=== PATIENT | male | born 1965 | race Caucasian/White ===

== ENCOUNTER 2016-09-22 06:17 | Day surgery (SDC) | payer BC ==
[2016-09-21 08:49] VITALS: BMI 24.6
[~2016-09-22 06:17] MED LIST: DEXAMETHASONE SOD PHOSPHATE 10 MG/ML 1 ML VIAL IV ONE; HEPARIN SODIUM,PORCINE 5,000 UNIT/ML 1 ML VIAL SQ ONE; HYDROmorphone 1 MG/ML 1 ML SYRINGE IVP PRN; LACTATED RINGERS 1,000 ML IV SCH; LIDOCAINE 1% 20 ML VIAL (10MG/ML) FOR IV START INTRADERMA PRN; Pre Op ABX Message 1 EACH MISC MISCELLANE ONE
[2016-09-22 06:50] VITALS: RESP 16
[2016-09-22] MEDS ORDERED: ONDANSETRON 4 MG/2 ML VIAL IVP ONE (06:53)
[2016-09-22] MEDS ORDERED: BUPIVACAINE (PF) 0.25% 30 ML VIAL SQ ONE (07:21)
[2016-09-22] MEDS ORDERED: BUPIVACAIN-EPI 0.5%-1:200,000 30 ML VIAL SQ ONE (07:21)
[2016-09-22] MEDS ORDERED: LIDOCAINE 1% INJ 10MG/ML (20 ML MDV) ONE (07:32)
[2016-09-22] MEDS ORDERED: fentaNYL (PF) 50 MCG/ML 2 ML AMP ONE (07:32)
[2016-09-22] MEDS ORDERED: SODIUM CHLORIDE 0.9% 50 ML with ceFAZolin 1,000 MG IV ONE ×2 (07:32)
[2016-09-22] MEDS ORDERED: MIDAZOLAM 2 MG/2 ML VIAL ONE (07:32)
[2016-09-22] MEDS ORDERED: PROPOFOL 10 MG/ML 20 ML VIAL IV ONE (07:32)
--- NOTE | 2016-09-22 08:05 | P.OP ---
Date of Procedure: 09/22/16 Preoperative Diagnosis: Right groin sebaceous cyst Postoperative Diagnosis: Right groin sebaceous cyst Procedure(s) Performed: Excision of sebaceous cyst Implants: Anesthesia: ADRIANAA, local Surgeon: Lucia Mar Pathology: other Condition: stable Indications for Procedure: Operative Findings: Description of Procedure: He had a sudden preoperative operating holding area after obtaining informed consent and marking the area between the operating room and given IV sedation appropriate timeout was called. He is prepped and draped in usual sterile surgical fashion, after infiltrating with local anesthesia elliptical incision was made around the cyst itself with the help of a 15 blade scalpel. This was deepened to skin and subcutis tissue with the help of electrocautery thus completely enucleating the cyst. This subsides itself was approximately 1.8 cm x 1.8 cm x 2 cm. The incision was deepened to the subcutaneous tissue without exposure of any deeper tissues. The wound itself was closed with its subcu cutaneous 2-0 Vicryl and skin was closed with 3-0 nylon. The patient tolerated procedure well there were no complications she was taken to recovery room in stable condition. Plan - Discharge Summary New Discharge Prescriptions: New Clindamycin [Cleocin] 150 mg PO Q6H #12 capsule Ibuprofen 800 mg PO Q8HR PRN #15 tablet PRN Reason: Pain No Action Albuterol Sulfate [Proair Hfa] 2 puff INHALATION RT-Q4H PRN PRN Reason: Shortness Of Breath Cholecalciferol [Vitamin D3] 1,000 unit PO DAILY Budesonide-Formot 160-4.5 Mcg [Symbicort 160-4.5 Mcg Inhaler] 2 puff INHALATION HS Sulfamethox-Tmp 800-160Mg [Bactrim DS 800-160 mg] 1 tab PO BID-W/MEALS Discharge Medication List Albuterol Sulfate [Proair Hfa] 2 puff INHALATION RT-Q4H PRN 07/28/15 [History] Budesonide-Formot 160-4.5 Mcg [Symbicort 160-4.5 Mcg Inhaler] 2 puff INHALATION HS 09/21/16 [History] Cholecalciferol [Vitamin D3] 1,000 unit PO DAILY 09/21/16 [History] Clindamycin [Cleocin] 150 mg PO Q6H #12 capsule 09/22/16 [Rx] Ibuprofen 800 mg PO Q8HR PRN #15 tablet 09/22/16 [Rx] Sulfamethox-Tmp 800-160Mg [Bactrim DS 800-160 mg] 1 tab PO BID-W/MEALS 09/22/16 [History] Follow up Appointment(s)/Referral(s): Lucia Mar MD [STAFF PHYSICIAN] - 1 Week Activity/Diet/Wound Care/Special Instructions: regular diet Discharge Disposition: HOME SELF-CARE
[2016-09-22 08:06] VITALS: TEMP 97.7
[2016-09-22] MEDS ORDERED: KETOROLAC 30 MG/ML 1 ML VIAL IVP ONE (08:11)
[2016-09-22] MEDS ORDERED: LACTATED RINGERS 1,000 ML IV ONE (08:34)
[2016-09-22 09:45] VITALS: BP 114/65; PULSE 76
== END 2016-09-22 10:10 | disposition home or self-care (01) ==
LOC: OR 06:17
PROVIDERS: ATTEND Surgery
DX: L72.3 Sebaceous cyst (principal); J45.909 Unspecified asthma, uncomplicated; Z79.51 Long term (current) use of inhaled steroids; Z88.0 Allergy status to penicillin
CPT/HCPCS: 88304; 11402; J2250; J1100; J2405; J2001; J3010; J1885; J0690; J2704

== ENCOUNTER 2018-05-06 21:02 | Inpatient (IN) | payer BC ==
[2018-05-06] MEDS ORDERED: SODIUM CHLORIDE 0.9% 1,000 ML IV ONE (21:58)
--- NOTE | 2018-05-06 22:10 | ED ---
Abdominal Pain HPI - General Chief Complaint: Abdominal Pain Stated Complaint: diverticulitis Time Seen by Provider: 05/06/18 21:47 Source: patient Mode of arrival: ambulatory Limitations: no limitations - History of Present Illness Initial Comments: 52-year-old male with past medical history of diverticulosis present today for chief complaint of left lower abdominal pain. Patient states he was diagnosed on Sunday with diverticulitis by primary care provider after abdominal exam revealing left lower quadrant tenderness. Patient started on metronidazole as well as clindamycin. Patient states that the pain seemed to decide for a short amount of time however it has returned and seems to be worsened. Patient is concerned infection and spread. Patient denies any fever, chills, general malaise, nausea, vomiting, diarrhea, melena, hematochezia, testicular pain, urgency, frequency, dysuria headache, dizziness, chest pain, dyspnea, dyspnea on exertion, visual changes or any other complaints. Upon arrival patient appears well, nontoxic. Patient afebrile. No signs of acute distress. - Related Data Home Medications Medication Instructions Recorded Confirmed Albuterol Sulfate [Proair Hfa] 2 puff INHALATION RT-Q4H PRN 07/28/15 05/06/18 Ciprofloxacin HCl [Cipro] 500 mg PO BID 05/06/18 05/06/18 metroNIDAZOLE [Flagyl] 500 mg PO BID 05/06/18 05/06/18 Allergies Allergy/AdvReac Type Severity Reaction Status Date / Time peanut Allergy throat Verified 05/06/18 22:23 closes tree nut Allergy throat Verified 05/06/18 22:23 closes Penicillins AdvReac Nausea & Verified 05/06/18 22:23 Vomiting & Diarrhea Review of Systems ROS Statement: Those systems with pertinent positive or pertinent negative responses have been documented in the HPI. ROS Other: All systems not noted in ROS Statement are negative. Past Medical History Past Medical History: Asthma Additional Past Medical History / Comment(s): diverticulitis History of Any Multi-Drug Resistant Organisms: None Reported Past Surgical History: No Surgical Hx Reported Additional Past Surgical History / Comment(s): colonoscopy, hemorrhoidectomy Past Anesthesia/Blood Transfusion Reactions: No Reported Reaction Past Psychological History: No Psychological Hx Reported Smoking Status: Never smoker Past Alcohol Use History: Rare Past Drug Use History: None Reported - Past Family History Mother Family Medical History: Cancer Father Family Medical History: Cancer General Exam - General Exam Comments Initial Comments: General: The patient is awake and alert, in no distress, and does not appear a cutely ill. Eye: Pupils are equal, round and reactive to light, extra-ocular movements are intact. No nystagmus. There is normal conjunctiva bilaterally. No signs of icterus. Ears, nose, mouth and throat: There are moist mucous membranes and no oral lesions. Neck: The neck is supple, there is no tenderness or JVD. Cardiovascular: There is a regular rate and rhythm. No murmur, rub or gallop is appreciated. Respiratory: Lungs are clear to auscultation, respirations are non-labored, breath sounds are equal. No wheezes, stridor, rales, or rhonchi. Gastrointestinal: No noted diaphoresis, jaundice, pallor, protecting postures or squirming. Symmetrical pigmentation of abdomen without signs of inflammation. No dilated veins.., no noted abdominal distention. No visible masses. No peristalsis, aortic pulsations, or ventral hernia. Bowel sounds audible in all 4 quadrants, unremarkable. No friction rubs or venous hums. No epigastic, hepatic or abdominal bruits. Patient tender a patient of the left lower quadrant. [place] ining abdominal exam no tenderness to deep palpation. Liver edge, not palpable. Spleen edge, right and left kidney not palpable. Superior bladder margin non- tender. Special Testing: Negative [place], [place], Elvia, cutaneous hyperesthesia. Negative Heel Jar test/. No CVA tenderness. Digital rectal exam deferred. Negative martinez turners or cullens sign Musculoskeletal: Normal ROM, no tenderness. Strength 5/5. Sensation intact. Pulses equal bilaterally 2+. Neurological: A&O x 3. CN II-XII intact, There are no obvious motor or sensory deficits. Coordination appears grossly intact. Speech is normal. Skin: Skin is warm and dry and no rashes or lesions are noted. Psychiatric: Cooperative, appropriate mood & affect, normal judgment. Limitations: no limitations Course Vital Signs 05/06/18 05/06/18 05/07/18 21:28 22:45 01:01 Temperature 98.5 F Pulse Rate 89 87 83 Respiratory 18 16 16 Rate Blood Pressure 113/73 122/85 110/83 O2 Sat by Pulse 98 98 96 Oximetry Medical Decision Making - Medical Decision Making 52-year-old male past medical history of diverticulosis with recent diverticulitis diagnosis and antibiotic treatment up patient. Patient complaining of worsening symptoms. CT revealed acute diverticulitis. Given patient increasing symptoms on antibiotic regimen outpatient feel this is outpatient failure. Patient will be admitted for intravenous antibiotics, bowel rest and GI consultation. Patient does not appear toxic, no clinical signs of sepsis. Mild leukocytosis. Vital signs within normal limits. Patient is agreeable to admission. Denies questions at this time. Case was discussed with attending provider Dr. Madrigal who is agreeable with patient admission. Dr. Madrigal contacted admitting provider, no further orders at this time. - Lab Data Result diagrams: 05/06/18 22:45 05/06/18 22:45 Lab Results 05/06/18 05/06/18 Range/Units 22:45 22:45 WBC 13.4 H (3.8-10.6) k/uL RBC 5.28 (4.30-5.90) m/uL Hgb 15.6 (13.0-17.5) gm/dL Hct 45.8 (39.0-53.0) % MCV 86.7 (80.0-100.0) fL MCH 29.5 (25.0-35.0) pg MCHC 34.1 (31.0-37.0) g/dL RDW 12.3 (11.5-15.5) % Plt Count 236 (150-450) k/uL Neutrophils % 77 % Lymphocytes % 10 % Monocytes % 6 % Eosinophils % 6 % Basophils % 0 % Neutrophils # 10.3 H (1.3-7.7) k/uL Lymphocytes # 1.3 (1.0-4.8) k/uL Monocytes # 0.8 (0-1.0) k/uL Eosinophils # 0.7 (0-0.7) k/uL Basophils # 0.0 (0-0.2) k/uL Sodium 139 (137-145) mmol/L Potassium 4.1 (3.5-5.1) mmol/L Chloride 107 (98-107) mmol/L Carbon Dioxide 23 (22-30) mmol/L Anion Gap 9 mmol/L BUN 17 (9-20) mg/dL Creatinine 0.68 (0.66-1.25) mg/dL Est GFR (CKD-EPI)AfAm >90 (>60 ml/min/1.73 sqM) Est GFR (CKD-EPI)NonAf >90 (>60 ml/min/1.73 sqM) Glucose 101 H (74-99) mg/dL Calcium 9.2 (8.4-10.2) mg/dL Total Bilirubin 0.6 (0.2-1.3) mg/dL AST 33 (17-59) U/L ALT 46 (21-72) U/L Alkaline Phosphatase 58 (38-126) U/L Total Protein 6.6 (6.3-8.2) g/dL Albumin 4.2 (3.5-5.0) g/dL Lipase 68 (23-300) U/L Disposition Clinical Impression: Diverticulitis Disposition: ADMITTED IP TO THIS [facility] Condition: Good Is patient prescribed a controlled substance at d/c from ED?: No Time of Disposition: 00:26 Decision to Admit Reason: Admit from EC Decision Date: 05/07/18 Decision Time: 00:26
[2018-05-06] MEDS ORDERED: MORPHINE SULFATE 2 MG/ML SYRINGE IVP STA (22:11)
[2018-05-06 23:03] LABS: Basophils % (A) 0 %; Eosinophils # (A) 0.7 k/uL (0-0.7); Eosinophils % (A) 6 %; HCT 45.8 % (39.0-53.0); HGB 15.6 gm/dL (13.0-17.5); Lymphocytes # (A) 1.3 k/uL (1.0-4.8); Lymphocytes % (A) 10 %; MCH 29.5 pg (25.0-35.0); MCHC 34.1 g/dL (31.0-37.0); MCV 86.7 fL (80.0-100.0); Mean Platelet Volume 7.4; Monocytes # (A) 0.8 k/uL (0-1.0); Monocytes % (A) 6 %; Neutrophils # (A) 10.3 k/uL (1.3-7.7); Neutrophils % (A) 77 %; Platelet Count 236 k/uL (150-450); RBC 5.28 m/uL (4.30-5.90); RDW 12.3 % (11.5-15.5); WBC 13.4 k/uL (3.8-10.6)
[2018-05-06 23:12] LABS: ALT 46 U/L (21-72); AST 33 U/L (17-59); Albumin 4.2 g/dL (3.5-5.0); Alkaline Phosphatase 58 U/L (38-126); Anion Gap 9 mmol/L; Blood Urea Nitrogen 17 mg/dL (9-20); Calcium 9.2 mg/dL (8.4-10.2); Carbon Dioxide 23 mmol/L (22-30); Chloride 107 mmol/L (98-107); Glucose 101 mg/dL (74-99); Lipase 68 U/L (23-300); Potassium 4.1 mmol/L (3.5-5.1); Sodium 139 mmol/L (137-145); Total Bilirubin 0.6 mg/dL (0.2-1.3); Total Protein 6.6 g/dL (6.3-8.2)
--- NOTE | 2018-05-07 | CT ---
EXAM: CT Abdomen and Pelvis With Intravenous Contrast CLINICAL HISTORY: ITS.REASON CT Reason: Pain TECHNIQUE: Axial computed tomography images of the abdomen and pelvis with intravenous contrast. DLP is 695 mGy-cm. This CT exam was performed using one or more of the following dose reduction techniques: automated exposure control, adjustment of the mA and/or kV according to patient size, and/or use of iterative reconstruction technique. COMPARISON: No relevant prior studies available. FINDINGS: Lung bases: Unremarkable. No mass. No consolidation. ABDOMEN: Liver: Unremarkable. No mass. Gallbladder and bile ducts: No abnormal ductal dilation or stones. Pancreas: Unremarkable. No mass. No ductal dilation. Spleen: Unremarkable. No splenomegaly. Adrenals: Unremarkable. No mass. Kidneys and ureters: Unremarkable. No solid mass. No hydronephrosis. Stomach and bowel: Acute diverticulitis at the descending colon. Fluid levels throughout the colon without obstruction. PELVIS: Appendix: No findings to suggest acute appendicitis. Bladder: Unremarkable. No mass. Reproductive: Unremarkable as visualized. ABDOMEN and PELVIS: Intraperitoneal space: Unremarkable. No free air. No significant fluid collection. Bones/joints: No acute fracture. No dislocation. Soft tissues: Unremarkable. Vasculature: No abdominal aortic aneurysm. Lymph nodes: Unremarkable. No enlarged lymph nodes. IMPRESSION: 1. Acute diverticulitis at the descending colon. 2. Fluid levels throughout the colon without obstruction.
[2018-05-07] MEDS ORDERED: ONDANSETRON 4 MG/2 ML VIAL IVP PRN (00:19)
[2018-05-07] MEDS ORDERED: NALOXONE 0.4 MG/ML 1 ML VIAL IV PRN (00:19)
[2018-05-07] MEDS ORDERED: LEVOFLOXACIN 750MG-D5W PMX 750 MG in DEXTROSE/WATER 1 150ML.BAG IVPB STA (00:23)
[2018-05-07] MEDS ORDERED: metroNIDAZOLE-NS PMX 500 MG in SALINE 1 100ML.BAG IVPB STA (00:25)
[2018-05-07] MEDS: SODIUM CHLORIDE 0.9% 1,000 ML IV SCH ×2 (00:34→14:03)
[2018-05-07] MEDS: MORPHINE SULFATE 4 MG/ML SYRINGE IV PRN ×5 (01:02→20:55)
[2018-05-07 02:13] VITALS: BMI 24.7
--- NOTE | 2018-05-07 09:27 | P.CONS ---
History of Present Illness - Reason for Consult Consult date: 05/07/18 Diverticulitis Requesting physician: Hung Reddy - Chief Complaint Abdominal pain - History of Present Illness 52-year-old male patient of Dr. Boone admitted with left lower quadrant abdominal pain recently diagnosed outpatient diverticulitis by PCP last week placed on Cipro Flagyl. He's had a few outpatient diverticular attacks over the years starting 2 years ago normally results with outpatient in bad ax. No history of colonoscopy he was scheduled twice but canceled. He has a history of familial colon cancer mother was diagnosed in her 60s stage IV. Denies fever chills hematemesis hematochezia or melena. Was reporting constipation prior to admission and had a few loose her bowel movements are last 24 hours. White count 13.4. Hemoglobin 15.6. CT abdomen pelvis reported acute diver to colitis of the descending colon without obstruction. No weight loss. No changes in medications. No recent antibiotics. Review of Systems Constitutional: Denies fever, chills, sweats, weight gain, or loss. HEENT: Negative for migraines, blurred vision or loss, earaches, drainage, tinnitus, oral mucosal lesions, dysphagia, or odynophagia. Cardiac: Negative for chest pain, arrhythmias, or palpitation. Respiratory: Negative for shortness of breath, hemoptysis, cough, or sputum production. Gastrointestinal: See HPI for pertinent findings. Genitourinary: Negative for hematuria, urgency, frequency, polyuria, dysuria, or penile discharge. Musculoskeletal: Negative for muscle aches, swelling, arthritis, and arthralgias. Neurologic: Negative for stroke or TIA. Endocrine: Negative for thyroid problems. Skin: Negative for rash or itching. Psychiatric: Negative history for depression and anxiety Past Medical History Past Medical History: Asthma Additional Past Medical History / Comment(s): diverticulitis History of Any Multi-Drug Resistant Organisms: None Reported Past Surgical History: No Surgical Hx Reported Additional Past Surgical History / Comment(s): colonoscopy, hemorrhoidectomy Past Anesthesia/Blood Transfusion Reactions: No Reported Reaction Past Psychological History: No Psychological Hx Reported Smoking Status: Never smoker Past Alcohol Use History: Rare Past Drug Use History: None Reported - Past Family History Mother Family Medical History: Cancer Father Family Medical History: Cancer Medications and Allergies Home Medications Medication Instructions Recorded Confirmed Type Albuterol Sulfate [Proair Hfa] 2 puff INHALATION RT-Q4H PRN 07/28/15 05/06/18 History Ciprofloxacin HCl [Cipro] 500 mg PO BID 05/06/18 05/06/18 History metroNIDAZOLE [Flagyl] 500 mg PO BID 05/06/18 05/06/18 History Allergies Allergy/AdvReac Type Severity Reaction Status Date / Time peanut Allergy throat Verified 05/06/18 22:23 closes tree nut Allergy throat Verified 05/06/18 22:23 closes Penicillins AdvReac Nausea & Verified 05/06/18 22:23 Vomiting & Diarrhea Physical Exam Vitals: Vital Signs Temp Pulse Pulse Resp BP BP Pulse Ox 05/07/18 07:00 98.9 F 98 12 121/71 98 05/07/18 01:01 83 16 110/83 96 05/06/18 22:45 87 16 122/85 98 05/06/18 21:28 98.5 F 89 18 113/73 98 Intake and Output 05/06/18 05/07/18 05/07/18 22:59 06:59 14:59 Intake Total 600 Balance 600 Intake: Intake, IV Titration 600 Amount Sodium Chloride 0.9% 1, 600 000 ml @ 75 mls/hr IV . [id number] [facility] Rx#:[id number] Other: Voiding Method Toilet # Voids 2 Weight 73.845 kg General appearance: The patient is alert, oriented, in no acute distress. HET: Head is normocephalic and atraumatic. Pupils are equal and reactive. Oropharynx is clear without lesions. Neck: Supple without lymphadenopathy. Trachea midline. Heart: S1 S2. Regular rate and rhythm. Lungs: No crackles or wheezes are heard. Abdomen: Soft, mild left lower quadrant tenderness, nondistended with bowel sounds. No peritoneal signs. No palpable organomegaly or masses. Extremities: Normal skin color and turgor. No cyanosis, rash, ulceration, clubbing, or edema. Radial and pedal pulses are 2/4 bilaterally. Neurological: No focal deficits. Strength and sensation are grossly intact. Results CBC & Chem 7: 05/06/18 22:45 05/06/18 22:45 Labs: Abnormal Lab Results - Last 24 Hours (Table) 05/06/18 05/06/18 Range/Units 22:45 22:45 WBC 13.4 H (3.8-10.6) k/uL Neutrophils # 10.3 H (1.3-7.7) k/uL Glucose 101 H (74-99) mg/dL CT scan - abdomen: report reviewed (Dr. Wilkes) Assessment and Plan (1) Diverticulitis Narrative/Plan: 52-year-old male recently treated in the outpatient setting for acute colonic diverticulitis admitted with left lower quadrant abdominal pain CT reported acute descending colonic diverticulitis without abscess or free air. Current Visit: Yes Status: Acute Code(s): K57.92 - DVTRCLI OF INTEST, PART UNSP, W/O PERF OR ABSCESS W/O BLEED SNOMED Code(s): 734989857 Plan: 1. Avoid constipation stool softeners daily Senokot-S 2 tabs twice a day. Continue with IV antibiotics Levaquin 500 mg daily. Flagyl Flagyl 500 mg 3 times a day. 2. Light liquid diet as tolerated. Outpatient colonoscopy advised in 3-4 weeks. Thank you for this kind referral and the opportunity to participate in the care of your patient. This consultation was discussed with Dr. Wilkes. The impression and plan of care have been directed as dictated.
[2018-05-07] MEDS: SENNOSIDES-DOCUSATE SODIUM 1 EACH TAB PO SCH ×2 (10:58→20:56)
[2018-05-07] MEDS: metroNIDAZOLE-NS PMX 500 MG in SALINE 1 100ML.BAG IVPB SCH ×2 (10:58→15:28)
[2018-05-07 12:04] LABS: Basophils % (A) 0 %; Eosinophils # (A) 0.5 k/uL (0-0.7); Eosinophils % (A) 5 %; HGB 14.1 gm/dL (13.0-17.5); Lymphocytes # (A) 1.1 k/uL (1.0-4.8); Lymphocytes % (A) 12 %; MCH 29.2 pg (25.0-35.0); MCHC 32.8 g/dL (31.0-37.0); MCV 89.1 fL (80.0-100.0); Mean Platelet Volume 6.8; Monocytes # (A) 0.6 k/uL (0-1.0); Monocytes % (A) 7 %; Neutrophils # (A) 6.6 k/uL (1.3-7.7); Neutrophils % (A) 74 %; Platelet Count 228 k/uL (150-450); RBC 4.82 m/uL (4.30-5.90); RDW 12.6 % (11.5-15.5)
[2018-05-07] MEDS: ONDANSETRON 4 MG/2 ML VIAL IVP PRN (14:07)
--- NOTE | 2018-05-08 00:10 | HP ---
HISTORY AND PHYSICAL DATE OF ADMISSION: 05/07/2018 DATE OF SERVICE: 05/07/2018 PRESENTING COMPLAINT: Abdominal pain. HISTORY OF PRESENTING COMPLAINT: This is a pleasant 52-year-old patient follows with Dr. Boone, who has had diverticulitis episodes in the past, started off with left lower quadrant abdominal pain about 8 days ago and then decided to go and see Dr. Boone as pain was getting worse. He was started on Cipro and Flagyl. It felt a bit better then. Patient after three to four days started having increasing upper abdominal pain. There was no nausea, vomiting, fever, chills. The pain became rather severe. Hence patient presented to the ER. CT scan did not show any obvious abscess. The patient is started on IV Flagyl, Levaquin, admitted for the same. Started on IV fluids. The patient's bowel movements have been variable. GI was earlier consulted. The patient's is present at the bedside. The patient has had a colonoscopy years ago. REVIEW OF SYSTEMS: CONSTITUTIONAL: Tired. HEENT none. RESPIRATORY: Occasional wheezing. CARDIOVASCULAR: None. GASTROINTESTINAL: As above. GENITOURINARY: None. MUSCULOSKELETAL: None. DERMATOLOGIC, HEMATOLOGIC, LYMPHATIC: None. PSYCHIATRY none. NEUROLOGICAL: None. PAST MEDICAL HISTORY: Of asthma, chronic diverticulitis. PAST SURGICAL HISTORY: Colonoscopy, hemorrhoidectomy. SOCIAL HISTORY: No smoking, alcohol rarely. 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 . FAMILY HISTORY: Cancer, type unknown. HOME MEDICATIONS: 1. Flagyl 5 mg b.i.d. 2. Cipro 5 mg p.o. b.i.d. 3. ProAir 2 puffs q.4 p.r.n. ALLERGIES: TO PEANUT, TREE NUT, PENICILLIN, LATTER CAUSING NAUSEA AND VOMITING. PHYSICAL EXAMINATION: VITAL SIGNS: Vital signs on presentation: Temperature 99.5, pulse 59, respiratory 18, blood pressure 103/73, pulse ox 98% on room air. GENERAL APPEARANCE: Average built, sitting up, not in distress. EYES: Pupils are equal. Conjunctivae normal. HEENT: External appearance of nose and ears normal. Oral cavity normal. NECK: JVD not raised. Mass not palpable. RESPIRATORY: Effort normal. LUNGS are clear. CARDIOVASCULAR: First and second sounds normal. No edema. ABDOMEN: Left lower abdomen tenderness with no guarding. No rigidity. Liver and spleen not palpable. Bowel sounds are present. LYMPHATICS: No lymph nodes palpable in the neck and axilla. PSYCHIATRY: Alert and oriented x3. Mood and affect normal. NEUROLOGICAL: Pupils equal. Cranial nerves grossly intact. Power and sensation grossly intact. INVESTIGATIONS: White count 13.4, hemoglobin 13.6, potassium 4.1, BUN and creatinine is normal. CT scan of the abdomen and pelvis showing acute diverticulitis in the descending colon and fluid levels throughout the colon without obstruction. ASSESSMENT: 1. Acute recurrent diverticulitis of the descending colon, having failed outpatient treatment. The patient initially improved and was getting worse. Patient has fluid levels throughout the colon. No obvious obstruction reported, have got to be careful about the same. 2. Intermittent asthma. 3. Leukocytosis from above. PLAN: Patient is started on IV Flagyl and IV Levaquin. Lovenox for DVT prophylaxis. Do IV fluids. GI was consulted. The patient is quite tender because the episode has come back. We will also get a surgical involvement. Care was discussed with the patient and . Questions were answered. Copy to Dr. Boone. MMODL / IJN: [id number] /
[2018-05-08] MEDS: LACTATED RINGERS 1,000 ML IV SCH ×4 (00:42→23:17)
[2018-05-08] MEDS: metroNIDAZOLE-NS PMX 500 MG in SALINE 1 100ML.BAG IVPB SCH ×2 (04:32→09:19)
[2018-05-08 07:32] LABS: Basophils % (A) 0 %; Eosinophils # (A) 0.4 k/uL (0-0.7); Eosinophils % (A) 4 %; HCT 42.1 % (39.0-53.0); HGB 14.2 gm/dL (13.0-17.5); Lymphocytes # (A) 1.2 k/uL (1.0-4.8); Lymphocytes % (A) 14 %; MCH 29.7 pg (25.0-35.0); MCHC 33.8 g/dL (31.0-37.0); MCV 87.9 fL (80.0-100.0); Mean Platelet Volume 7.2; Monocytes # (A) 0.6 k/uL (0-1.0); Monocytes % (A) 7 %; Neutrophils # (A) 6.5 k/uL (1.3-7.7); Neutrophils % (A) 74 %; Platelet Count 231 k/uL (150-450); RBC 4.78 m/uL (4.30-5.90); RDW 12.3 % (11.5-15.5); WBC 8.9 k/uL (3.8-10.6)
[2018-05-08 07:54] LABS: Anion Gap 6 mmol/L; Blood Urea Nitrogen 7 mg/dL (9-20); Calcium 8.8 mg/dL (8.4-10.2); Carbon Dioxide 27 mmol/L (22-30); Chloride 105 mmol/L (98-107); Glucose 83 mg/dL (74-99); Sodium 138 mmol/L (137-145)
[2018-05-08] MEDS: MORPHINE SULFATE 4 MG/ML SYRINGE IV PRN (08:00)
[2018-05-08] MEDS: ENOXAPARIN 40 MG/0.4 ML SYRINGE SQ SCH (08:08)
[2018-05-08] MEDS ORDERED: LEVOFLOXACIN 500MG-D5W PMX 500 MG in DEXTROSE/WATER 1 100ML.BAG IVPB SCH (09:00)
--- NOTE | 2018-05-08 09:02 | P.PN ---
Subjective Progress Note Date: 05/08/18 Principal diagnosis: Acute colonic diverticulitis Feels better. No BM passing flatus. Afebrile. Mild LLQ abdominal soreness. CBC WNL. Objective - Vital Signs Vital signs: Vital Signs Temp 98.8 F 05/08/18 07:00 Pulse 94 05/08/18 07:00 Resp 16 05/08/18 07:00 BP 116/75 05/08/18 07:00 Pulse Ox 98 05/08/18 00:20 Intake & Output 05/07/18 05/08/18 05/08/18 18:59 06:59 18:59 Intake Total 1040 Balance 1040 Weight 73.845 kg Intake: Intake, IV Titration 500 Amount Lactated Ringers 1,000 ml 250 @ 125 mls/hr IV .Q8H [facility] Rx#:[id number] Sodium Chloride 0.9% 1, 150 000 ml @ 75 mls/hr IV . [id number] [facility] Rx#:[id number] metroNIDAZOLE-NS PMX 500 100 mg In Saline 1 100ml.bag @ 100 mls/hr IVPB Q8H [facility] Rx#:[id number] Oral 540 Other: Voiding Method Toilet Toilet # Voids 1 1 - Exam General appearance: The patient is alert, oriented, in no acute distress. HET: Head is normocephalic and atraumatic. Pupils are equal and reactive. Oropharynx is clear without lesions. Neck: Supple without lymphadenopathy. Trachea midline. Heart: S1 S2. Regular rate and rhythm. Lungs: No crackles or wheezes are heard. Abdomen: Soft, mild left lower quadrant tenderness, nondistended with bowel sounds. No peritoneal signs. No palpable organomegaly or masses. Extremities: Normal skin color and turgor. No cyanosis, rash, ulceration, cl ubbing, or edema. Radial and pedal pulses are 2/4 bilaterally. Neurological: No focal deficits. Strength and sensation are grossly intact. - Labs CBC & Chem 7: 05/08/18 07:01 05/08/18 07:01 Labs: Abnormal Lab Results - Last 24 Hours (Table) 05/08/18 Range/Units 07:01 BUN 7 L (9-20) mg/dL Assessment and Plan (1) Diverticulitis Narrative/Plan: 52-year-old male recently treated in the outpatient setting for acute colonic diverticulitis admitted with left lower quadrant abdominal pain CT reported acute descending colonic diverticulitis without abscess or free air. Current Visit: Yes Status: Acute Code(s): K57.92 - DVTRCLI OF INTEST, PART UNSP, W/O PERF OR ABSCESS W/O BLEED SNOMED Code(s): 515170545 Plan: 1. Avoid constipation stool softeners daily Senokot-S 2 tabs twice a day. Continue with IV antibiotics Levaquin 500 mg daily. Flagyl 500 mg 3 times a day until discharge then switch to oral for additional 10-14 days. Outpatient colonoscopy scheduled at the end of the month with Dr. Wilkes. 2. GI soft low residue diet today. Discharge per medicine. Assessment and plan a care discussed with Dr. Wilkes
[2018-05-08] MEDS: ONDANSETRON 4 MG/2 ML VIAL IVP PRN (10:26)
--- NOTE | 2018-05-08 11:49 | P.GSCN ---
History of Present Illness Consult date: 05/08/18 Reason for Consult: Recurrent diverticulitis Requesting physician: Hung Reddy History of present illness: CHIEF COMPLAINT: Diverticulitis HISTORY OF PRESENT ILLNESS: 52-year-old male who was admitted to the hospital with acute diverticulitis, failed outpatient treatment. General she was consulted for further evaluation. Patient was seen and examined this mo rning at the bedside. Patient is complaining of left lower quadrant pain and rating it as 7 out of 10. Denies nausea or vomiting. Denies diarrhea. He is tolerating clear liquid diet. He has also been evaluated by GI services and is scheduled for outpatient colonoscopy later this month. PAST MEDICAL HISTORY: See list. PAST SURGICAL HISTORY: See list. MEDICATIONS: See list. ALLERGIES: See list. SOCIAL HISTORY: No illicit drug use. REVIEW OF SYSTEMS: CONSTITUTIONAL: Denies fever or chills. HEENT: Denies blurred vision, vision changes, or eye pain. Denies hemoptysis ENDOCRINE: Denies heat or cold intolerance. CARDIOVASCULAR: Denies chest pain or pressure. RESPIRATORY: No shortness of breath. GASTROINTESTINAL: report left lower quadrant abdominal pain. Denies nausea or vomiting. NEURO: Denies history of seizures. PSYCH: No depression or suicidal ideation HEMATOLOGIC: Denies bleeding disorders. LYMPHATIC: The patient denies any lumps and bumps around the neck. GENITOURINARY: Denies any blood in urine or increased urinary frequency. MUSCULOSKELETAL: Denies myalgias. Denies joint swelling. Denies decreased range of motion beyond patients baseline. SKIN: Denies pruitis. Denies rash. PHYSICAL EXAM: VITAL SIGNS: Currently stable. GENERAL: Well-developed in no acute distress. HEENT: No sclera icterus. Extraocular movements grossly intact. Moist buccal mucosa. Head is atraumatic, normocephalic. Hears conversational speech. No nasal drainage. NECK: Supple without lymphadenopathy. CHEST: Non-labored respirations and equal bilateral excursions. CARDIOVASCULAR: Regular rate with regular rhythm. Palpable 2+ radial pulses. ABDOMEN: Soft. Nondistended. Tenderness upon palpation left lower quadrant MUSCULOSKELETAL: No clubbing, cyanosis or edema. NEUROLOGIC: No focal or lateralizing signs. Cranial nerves II through XII grossly intact. PSYCH: Appropriate affect. Alert and oriented to person, place and time. SKIN: Well perfused. Good skin turgor. ASSESSMENT: 1. Acute diverticulitis, failed outpatient treatment PLAN: 1. Diet per GI services 2. Patient scheduled for outpatient colonoscopy per GI team 3. Continue antibiotics 4. Patient is stable from a surgical perspective. No surgical intervention recommended. Nurse practitioner note has been reviewed by physician. Signing provider agrees with the documented findings, assessment, and plan of care. Past Medical History Past Medical History: Asthma Additional Past Medical History / Comment(s): diverticulitis History of Any Multi-Drug Resistant Organisms: None Reported Past Surgical History: No Surgical Hx Reported Additional Past Surgical History / Comment(s): colonoscopy, hemorrhoidectomy Past Anesthesia/Blood Transfusion Reactions: No Reported Reaction Past Psychological History: No Psychological Hx Reported Smoking Status: Never smoker Past Alcohol Use History: Rare Past Drug Use History: None Reported - Past Family History Mother Family Medical History: Cancer Father Family Medical History: Cancer Medications and Allergies Home Medications Medication Instructions Recorded Confirmed Type Albuterol Sulfate [Proair Hfa] 2 puff INHALATION RT-Q4H PRN 07/28/15 05/06/18 History Ciprofloxacin HCl [Cipro] 500 mg PO BID 05/06/18 05/06/18 History metroNIDAZOLE [Flagyl] 500 mg PO BID 05/06/18 05/06/18 History Sennosides-Docusate Sodium 1 tab PO BID #60 tablet 05/08/18 Rx [Senokot-S] Allergies Allergy/AdvReac Type Severity Reaction Status Date / Time peanut Allergy throat Verified 05/06/18 22:23 closes tree nut Allergy throat Verified 05/06/18 22:23 closes Penicillins AdvReac Nausea & Verified 05/06/18 22:23 Vomiting & Diarrhea Surgical - Exam Vital Signs Temp Pulse Resp BP Pulse Ox 98.5 F 89 18 113/73 98 05/06/18 21:28 05/06/18 21:28 05/06/18 21:28 05/06/18 21:28 05/06/18 21:28 Results - Labs 05/08/18 07:01 05/08/18 07:01 Abnormal Lab Results - Last 24 Hours (Table) 05/08/18 Range/Units 07:01 BUN 7 L (9-20) mg/dL Diabetes panel 05/08/18 Range/Units 07:01 Sodium 138 (137-145) mmol/L Potassium 4.0 (3.5-5.1) mmol/L Chloride 105 (98-107) mmol/L Carbon Dioxide 27 (22-30) mmol/L BUN 7 L (9-20) mg/dL Creatinine 0.71 (0.66-1.25) mg/dL Glucose 83 (74-99) mg/dL Calcium 8.8 (8.4-10.2) mg/dL Calcium panel 05/08/18 Range/Units 07:01 Calcium 8.8 (8.4-10.2) mg/dL Pituitary panel 05/08/18 Range/Units 07:01 Sodium 138 (137-145) mmol/L Potassium 4.0 (3.5-5.1) mmol/L Chloride 105 (98-107) mmol/L Carbon Dioxide 27 (22-30) mmol/L BUN 7 L (9-20) mg/dL Creatinine 0.71 (0.66-1.25) mg/dL Glucose 83 (74-99) mg/dL Calcium 8.8 (8.4-10.2) mg/dL Adrenal panel 05/08/18 Range/Units 07:01 Sodium 138 (137-145) mmol/L Potassium 4.0 (3.5-5.1) mmol/L Chloride 105 (98-107) mmol/L Carbon Dioxide 27 (22-30) mmol/L BUN 7 L (9-20) mg/dL Creatinine 0.71 (0.66-1.25) mg/dL Glucose 83 (74-99) mg/dL Calcium 8.8 (8.4-10.2) mg/dL
[2018-05-08] MEDS: ACETAMINOPHEN TAB 325 MG TAB PO PRN (13:51)
--- NOTE | 2018-05-08 15:51 | P.PN ---
Subjective On-call hospitalist covering Dr. Reddy on 05/08/2018 This is a pleasant 52 years old male with past medical history of asthma, diverticulitis. Presents with another attack of acute diverticulitis. Patient has same pain in the left lower abdomen, slightly improved since admission from 9-10/10 down to 5-6/10 in severity. Patient is currently on clear liquid diet, slightly tolerating diet. He had vomited yesterday however no more vomiting s karla last night and this morning although he has some nausea. He does not have bowel movement. But he is passing gases. No chest pain or dyspnea. GI and surgery team R following the case, as they've been consulted by Dr. Reddy. Surgical team recommended no surgical intervention. GI team recommended stool softeners and continue with IV antibiotics. They recommended outpatient colonoscopy. Discussed this recommendation with the patient and he agrees. CONSTITUTIONAL: No fever, no malaise, no fatigue. HEENT: No recent visual problems or hearing problems. Denied any sore throat. CARDIOVASCULAR: No orthopnea, PND, no palpitations, no syncope. PULMONARY: No shortness of breath, no cough, no hemoptysis. GASTROINTESTINAL: No diarrhea, no nausea, no vomiting, no abdominal pain. Normoactive bowel sounds. NEUROLOGICAL: No headaches, no weakness, no numbness. HEMATOLOGICAL: Denies any bleeding or petechiae. GENITOURINARY: Denies any burning micturition, frequency, or urgency. MUSCULOSKELETAL/RHEUMATOLOGICAL: Denies any joint pain, swelling, or any muscle pain. ENDOCRINE: Denies any polyuria or polydipsia. Medication: Tylenol, Lovenox, Ringer lactate, Levaquin, Flagyl, morphine, Zofran. Objective - Vital Signs Vital signs: Vital Signs Temp 98.8 F 05/08/18 15:00 Pulse 85 05/08/18 15:00 Resp 16 05/08/18 08:00 BP 114/69 05/08/18 15:00 Pulse Ox 97 05/08/18 15:00 Intake & Output 05/07/18 05/08/18 05/08/18 18:59 06:59 18:59 Intake Total 1040 Balance 1040 Weight 73.845 kg Intake: Intake, IV Titration 500 Amount Lactated Ringers 1,000 ml 250 @ 125 mls/hr IV .Q8H [facility] Rx#:[id number] Sodium Chloride 0.9% 1, 150 000 ml @ 75 mls/hr IV . [id number] [facility] Rx#:[id number] metroNIDAZOLE-NS PMX 500 100 mg In Saline 1 100ml.bag @ 100 mls/hr IVPB Q8H [facility] Rx#:[id number] Oral 540 Other: Voiding Method Toilet Toilet Toilet # Voids 1 1 3 # Bowel Movements 1 - Exam GENERAL: The patient is alert and oriented x3, not in any acute distress. Well developed, well nourished. HEENT: Pupils are round and equally reacting to light. EOMI. No scleral icterus. No conjunctival pallor. Normocephalic, atraumatic. No pharyngeal erythema. No thyromegaly. CARDIOVASCULAR: S1 and S2 present. No murmurs, rubs, or gallops. PULMONARY: Chest is clear to auscultation, no wheezing or crackles. -ABDOMEN: Soft, left lower quadrant tenderness, nondistended, normoactive bowel sounds. No palpable organomegaly. MUSCULOSKELETAL: No joint swelling or deformity. EXTREMITIES: No cyanosis, clubbing, or pedal edema. NEUROLOGICAL: Gross neurological examination did not reveal any focal deficits. SKIN: No rashes. - Labs CBC & Chem 7: 05/08/18 07:01 05/08/18 07:01 Labs: Abnormal Lab Results - Last 24 Hours (Table) 05/08/18 Range/Units 07:01 BUN 7 L (9-20) mg/dL Assessment and Plan Assessment: Acute recurrent diverticulitis,. GI and surgery team of been consulted by Dr. Reddy Nausea vomiting secondary to above Dehydration, improving history of asthma. Not active tissue Plan: This is a pleasant 52 years old male who presents because of acute diverticulitis. GI and surgery team recommendation is appreciated. Continue with antibiotics. Symptomatic treatment. Advance diet as tolerated.Labs and medication were reviewed.. Continue same treatment. Continue with symptomatic treatment. Resume home medication. Monitor lytes and vitals. DVT and GI prophylaxis. Further recommendations of the clinical course of the patient DVT prophylaxis: Subcutaneous heparin GI Prophylaxis: Pepcid Prognosis is guarded
[2018-05-08] MEDS: metroNIDAZOLE 500 MG TAB PO SCH ×2 (17:50→23:20)
[2018-05-08] MEDS: FAMOTIDINE 20 MG/2 ML VIAL IV SCH (20:45)
[2018-05-09] MEDS: metroNIDAZOLE 500 MG TAB PO SCH (08:23)
[2018-05-09] MEDS: FAMOTIDINE 20 MG/2 ML VIAL IV SCH (08:24)
[2018-05-09] MEDS: ENOXAPARIN 40 MG/0.4 ML SYRINGE SQ SCH (08:25)
[2018-05-09] MEDS ORDERED: LEVOFLOXACIN 500 MG TAB PO SCH (09:00)
--- NOTE | 2018-05-09 09:46 | P.PN ---
Subjective On-call hospitalist covering Dr. Reddy on 05/08/2018 This is a pleasant 52 years old male with past medical history of asthma, diverticulitis. Presents with another attack of acute diverticulitis. Patient has same pain in the left lower abdomen, slightly improved since admission from 9-10/10 down to 5-6/10 in severity. Patient is currently on clear liquid diet, slightly tolerating diet. He had vomited yesterday however no more vomiting s karla last night and this morning although he has some nausea. He does not have bowel movement. But he is passing gases. No chest pain or dyspnea. GI and surgery team R following the case, as they've been consulted by Dr. Reddy. Surgical team recommended no surgical intervention. GI team recommended stool softeners and continue with IV antibiotics. They recommended outpatient colonoscopy. Discussed this recommendation with the patient and he agrees. 05/09/2018 Patient is tolerating diet well, however he still have the same of left lower quadrant abdominal pain about 5-6/10 in severity. He has a bowel movement also. Surgical evaluation and follow-up is appreciated they recommended repeat CAT scan of the abdomen. Vitas looks stable. Remain on the same antibiotics of Levaquin and Flagyl. Objective - Vital Signs Vital signs: Vital Signs Temp 98.6 F 05/09/18 07:05 Pulse 69 05/09/18 07:05 Resp 16 05/09/18 08:00 BP 113/70 05/09/18 07:05 Pulse Ox 95 05/09/18 07:05 Intake & Output 05/08/18 05/09/18 05/09/18 18:59 06:59 18:59 Intake Total 1660 Balance 1660 Intake: Intake, IV Titration 600 Amount Lactated Ringers 1,000 ml 600 @ 50 mls/hr IV .Q20H [facility] Rx#:[id number] Oral 1060 Other: Voiding Method Toilet Toilet Toilet # Voids 3 1 # Bowel Movements 1 - Exam GENERAL: The patient is alert and oriented x3, not in any acute distress. Well developed, well nourished. HEENT: Pupils are round and equally reacting to light. EOMI. No scleral icterus. No conjunctival pallor. Normocephalic, atraumatic. No pharyngeal erythema. No thyromegaly. CARDIOVASCULAR: S1 and S2 present. No murmurs, rubs, or gallops. PULMONARY: Chest is clear to auscultation, no wheezing or crackles. -ABDOMEN: Soft, left lower quadrant tenderness, nondistended, normoactive bowel sounds. No palpable organomegaly. MUSCULOSKELETAL: No joint swelling or deformity. EXTREMITIES: No cyanosis, clubbing, or pedal edema. NEUROLOGICAL: Gross neurological examination did not reveal any focal deficits. SKIN: No rashes. - Labs CBC & Chem 7: 05/08/18 07:01 05/08/18 07:01 Assessment and Plan Assessment: Acute recurrent diverticulitis,. GI and surgery team of been consulted by Dr. Reddy Nausea vomiting secondary to above Dehydration, improving history of asthma. Not active tissue Plan: This is a pleasant 52 years old male who presents because of acute divert iculitis. GI and surgery team recommendation is appreciated. Continue with antibiotics. Symptomatic treatment. Advance diet as tolerated.Labs and medication were reviewed.. Continue same treatment. Continue with symptomatic treatment. Resume home medication. Monitor lytes and vitals. DVT and GI prophylaxis. Further recommendations of the clinical course of the patient DVT prophylaxis: Subcutaneous heparin GI Prophylaxis: Pepcid Prognosis is guarded
[2018-05-09] MEDS: IOPAMIDOL-300 CONTRAST 30 ML VIAL (ORAL USE) PO PRN ×2 (10:59→11:43)
--- NOTE | 2018-05-09 11:08 | P.PN ---
Subjective Progress Note Date: 05/09/18 CHIEF COMPLAINT: Diverticulitis HISTORY OF PRESENT ILLNESS: Patient examined this morning at the bedside with Dr. Soriano. Patient appears anxious this morning. He continues to complain of pain in left lower quadrant. Denies nausea or vomiting. Passing flatus. T olerating low fiber diet. Remains on IV antibiotics. PHYSICAL EXAM: VITAL SIGNS: Currently stable. GENERAL: Well-developed in no acute distress. HEENT: No sclera icterus. Extraocular movements grossly intact. Moist buccal mucosa. Head is atraumatic, normocephalic. Hears conversational speech. No nasal drainage. NECK: Supple without lymphadenopathy. CHEST: Non-labored respirations and equal bilateral excursions. CARDIOVASCULAR: Regular rate with regular rhythm. Palpable 2+ radial pulses. ABDOMEN: Soft. Nondistended. Tenderness upon palpation left lower quadrant MUSCULOSKELETAL: No clubbing, cyanosis or edema. NEUROLOGIC: No focal or lateralizing signs. Cranial nerves II through XII grossly intact. PSYCH: Appropriate affect. Alert and oriented to person, place and time. SKIN: Well perfused. Good skin turgor. ASSESSMENT: 1. Acute diverticulitis, failed outpatient treatment PLAN: 1. Diet per GI services 2. Patient scheduled for outpatient colonoscopy per GI team 3. Continue antibiotics 4. Repeat CT abdomen/pelvis with oral contrast per Dr. Soriano. Await results. Nurse practitioner note has been reviewed by physician. Signing provider agrees with the documented findings, assessment, and plan of care. Objective - Vital Signs Vital signs: Vital Signs Temp 98.6 F 05/09/18 07:05 Pulse 69 05/09/18 07:05 Resp 16 05/09/18 08:00 BP 113/70 05/09/18 07:05 Pulse Ox 95 05/09/18 07:05 Intake & Output 05/08/18 05/09/18 05/09/18 18:59 06:59 18:59 Intake Total 1660 Balance 1660 Intake: Intake, IV Titration 600 Amount Lactated Ringers 1,000 ml 600 @ 50 mls/hr IV .Q20H [facility] Rx#:[id number] Oral 1060 Other: Voiding Method Toilet Toilet Toilet # Voids 3 1 1 # Bowel Movements 1 - Labs CBC & Chem 7: 05/08/18 07:01 05/08/18 07:01
--- NOTE | 2018-05-09 13:47 | CT ---
EXAMINATION TYPE: CT abdomen pelvis wo con DATE OF EXAM: 05/09/2018 COMPARISON: 05/06/2018 HISTORY: 52-year-old male Abdominal pain, ileus CT DLP: 452.6 mGycm. Automated exposure control for dose reduction was used. TECHNIQUE: Contiguous axial scanning of the abdomen and pelvis without IV contrast. Coronal and sagit anoop reconstructions performed. FINDINGS: Heart normal size without pericardial effusion. Lung bases clear without pleural effusion. Liver upper limits of normal in size at 17.9 cm. Noncontrast appearance of the liver, gallbladder, ad renal glands, kidneys, spleen, and pancreas shows no gross abnormal mobility. No dilated small bowel, free fluid, or free air. There are couple foci of air within the left anterior subcutaneous adipose layer at the level of the umbilicus, reference axial image 50 of uncertain etiology. Normal appendix. Oral contrast progressed to the rectum. Left-sided colonic diverticulosis with focal moderate wall thickening in surrounding inflammatory fat stranding which has increased from 05/06/2018. Inflammatory tracking edema is present. Second site of focal fold thickening along the mid to distal sigmoid colon, axial image 7 and coronal image 43. Mild circumferential bladder wall thickening. Prostate gland enlargement 4.9 cm wide. Left-sided pelv ic phlebolith. No abnormal fluid collection in the pelvis or pelvic lymphadenopathy. Bones: Mild degenerative changes at the hips. Mild degenerative disc disease lower thoracic spine. IMPRESSION: 1. Left-sided colonic diverticulosis with continued findings of acute diverticulitis along the lower descending colon with moderate surrounding inflammation that is slightly worsened from 05/06/2018. No abscess or free air seen. Mild tracking inflammatory edema. 2. After successful treatment, direct visualization recommended to exclude inflammatory colon cancer . An area of focal fold thickening along the mid to distal sigmoid should also be assessed at that ti me. 3. A couple foci of air in the left anterior abdominal subcutaneous adipose tissues. Query the etiol ogy for this air, possible subcutaneous injections.
[2018-05-09] MEDS: metroNIDAZOLE-NS PMX 500 MG in SALINE 1 100ML.BAG IVPB SCH ×2 (15:26→20:43)
[2018-05-09] MEDS: LACTATED RINGERS 1,000 ML IV SCH (15:27)
[2018-05-09] MEDS: ACETAMINOPHEN TAB 325 MG TAB PO PRN (15:36)
[2018-05-09] MEDS: FAMOTIDINE 20 MG TAB PO SCH (20:43)
[2018-05-10] MEDS: metroNIDAZOLE-NS PMX 500 MG in SALINE 1 100ML.BAG IVPB SCH ×4 (00:06→17:39)
[2018-05-10] MEDS: MORPHINE SULFATE 4 MG/ML SYRINGE IV PRN ×3 (00:33→10:49)
[2018-05-10] MEDS: AZTREONAM 1 GM in SODIUM CHLORIDE 0.9% 50 ML IVPB SCH ×2 (01:20→10:53)
[2018-05-10] MEDS: ONDANSETRON 4 MG/2 ML VIAL IVP PRN ×3 (01:24→17:41)
[2018-05-10] MEDS: FAMOTIDINE 20 MG TAB PO SCH (08:28)
[2018-05-10] MEDS: ENOXAPARIN 40 MG/0.4 ML SYRINGE SQ SCH (08:28)
[2018-05-10 08:33] LABS: Basophils % (A) 0 %; Eosinophils # (A) 0.4 k/uL (0-0.7); Eosinophils % (A) 5 %; HCT 45.6 % (39.0-53.0); HGB 14.9 gm/dL (13.0-17.5); Lymphocytes # (A) 1.3 k/uL (1.0-4.8); Lymphocytes % (A) 16 %; MCH 28.9 pg (25.0-35.0); MCHC 32.7 g/dL (31.0-37.0); MCV 88.5 fL (80.0-100.0); Mean Platelet Volume 6.5; Monocytes # (A) 0.5 k/uL (0-1.0); Monocytes % (A) 7 %; Neutrophils # (A) 5.6 k/uL (1.3-7.7); Neutrophils % (A) 70 %; Platelet Count 275 k/uL (150-450); RBC 5.16 m/uL (4.30-5.90); RDW 12.3 % (11.5-15.5)
[2018-05-10 08:42] LABS: Potassium 4.3 mmol/L (3.5-5.1)
[2018-05-10 08:43] LABS: Anion Gap 6 mmol/L; Blood Urea Nitrogen 12 mg/dL (9-20); Calcium 8.9 mg/dL (8.4-10.2); Carbon Dioxide 27 mmol/L (22-30); Chloride 105 mmol/L (98-107); Glucose 84 mg/dL (74-99); Sodium 138 mmol/L (137-145)
[2018-05-10] MEDS ORDERED: LEVOFLOXACIN 750 MG TAB PO SCH (09:00)
[2018-05-10] MEDS ORDERED: LEVOFLOXACIN 750MG-D5W PMX 750 MG in DEXTROSE/WATER 1 150ML.BAG IVPB SCH (09:00)
--- NOTE | 2018-05-10 09:23 | P.PN ---
Subjective Progress Note Date: 05/10/18 Principal diagnosis: Acute colonic diverticulitis Reports increased left sided abdominal pain; CT A/P redemonstrated left colonic diverticulitits without abscess or free air slightly worsened from previous exam. Passing loose nonbloody BMs. Afebrile. CBC pending. Objective - Vital Signs Vital signs: Vital Signs Temp 98.1 F 05/10/18 08:30 Pulse 78 05/10/18 07:00 Resp 16 05/10/18 08:30 BP 113/69 05/10/18 08:30 Pulse Ox 96 05/10/18 07:00 Intake & Output 05/09/18 05/10/18 05/10/18 18:59 06:59 18:59 Intake Total 900 1000 Balance 900 1000 Weight 73.845 kg Intake: Intake, IV Titration 1000 Amount Aztreonam 1 gm In Sodium 50 Chloride 0.9% 50 ml @ 100 mls/hr IVPB Q12H [facility] Rx# :[id number] Lactated Ringers 1,000 ml 650 @ 50 mls/hr IV .Q20H [facility] Rx#:[id number] metroNIDAZOLE-NS PMX 500 300 mg In Saline 1 100ml.bag @ 100 mls/hr IVPB Q6HR [facility] Rx#:[id number] Oral 900 Other: Voiding Method Toilet Toilet # Voids 2 2 - Exam General appearance: The patient is alert, oriented, in no acute distress. HET: Head is normocephalic and atraumatic. Pupils are equal and reactive. Oropharynx is clear without lesions. Neck: Supple without lymphadenopathy. Trachea midline. Heart: S1 S2. Regular rate and rhythm. Lungs: No crackles or wheezes are heard. Abdomen: Soft, moderate left lower quadrant tenderness, nondistended with bowel sounds. No peritoneal signs. No palpable organomegaly or masses. Extremities: Normal skin color and turgor. No cyanosis, rash, ulceration, clubbing, or edema. Radial and pedal pulses are 2/4 bilaterally. Neurological: No focal deficits. Strength and sensation are grossly intact. - Labs CBC & Chem 7: 05/10/18 07:47 05/10/18 07:47 Assessment and Plan (1) Diverticulitis Narrative/Plan: 52-year-old male recently treated in the outpatient setting for acute colonic di verticulitis admitted with left lower quadrant abdominal pain CT reported acute descending colonic diverticulitis without abscess or free air. Repeat CT for increased abdominal pain redemonstrated left colonic diverticulitis findings slightly worse than previous study underlying neoplasm cannot be excluded. Current Visit: Yes Status: Acute Code(s): K57.92 - DVTRCLI OF INTEST, PART UNSP, W/O PERF OR ABSCESS W/O BLEED SNOMED Code(s): 015085939 Plan: 1. Avoid constipation stool softeners daily Senokot-S 2 tabs twice a day. Continue with IV antibiotics Levaquin 500 mg daily. Flagyl 500 mg 3 times a day until discharge then switch to oral for additional 10-14 days. Outpatient colonoscopy scheduled at the end of the month with Dr. Wilkes May 23. 2. Decrease diet to full liquids with Ensure TID. CBC daily. Assessment and plan a care discussed with Dr. Wilkes
--- NOTE | 2018-05-10 10:32 | P.PN ---
Subjective Progress Note Date: 05/10/18 CHIEF COMPLAINT: Diverticulitis HISTORY OF PRESENT ILLNESS: Patient examined this morning at the bedside. Repeat CT yesterday reveals left-sided colonic diverticulosis but continued findings of acute diverticulitis along the lower descending colon with moderate surrounding inflammation that is slightly worsened from 05/06/2018. No abscess or free air. Patient was receiving oral antibiotics yesterday per GI order. Levaquin and Flagyl were changed to IV. Levaquin dose increased to 750mg. Flagyl increased to q6 hours. Patient reports he ate pork last night and he developed worsening pain. Denies nausea or vomiting. WBC 8.0. Hemoglobin 14.9. PHYSICAL EXAM: VITAL SIGNS: Currently stable. GENERAL: Well-developed in no acute distress. HEENT: No sclera icterus. Extraocular movements grossly intact. Moist buccal mucosa. Head is atraumatic, normocephalic. Hears conversational speech. No nasal drainage. NECK: Supple without lymphadenopathy. CHEST: Non-labored respirations and equal bilateral excursions. CARDIOVASCULAR: Regular rate with regular rhythm. Palpable 2+ radial pulses. ABDOMEN: Soft. Nondistended. Tenderness upon palpation left lower quadrant MUSCULOSKELETAL: No clubbing, cyanosis or edema. NEUROLOGIC: No focal or lateralizing signs. Cranial nerves II through XII grossly intact. PSYCH: Appropriate affect. Alert and oriented to person, place and time. SKIN: Well perfused. Good skin turgor. ASSESSMENT: 1. Acute diverticulitis, failed outpatient treatment PLAN: 1. Downgrade diet to full liquids 2. Re-consult GI services 3. Continue IV antibiotics 4. Patient scheduled for outpatient colonoscopy per GI team Nurse practitioner note has been reviewed by physician. Signing provider agrees with the documented findings, assessment, and plan of care. Objective - Vital Signs Vital signs: Vital Signs Temp 98.5 F 05/10/18 07:00 Pulse 78 05/10/18 07:00 Resp 17 05/10/18 07:00 BP 118/70 05/10/18 07:00 Pulse Ox 96 05/10/18 07:00 Intake & Output 05/09/18 05/10/18 05/10/18 18:59 06:59 18:59 Intake Total 900 1000 Balance 900 1000 Weight 73.845 kg Intake: Intake, IV Titration 1000 Amount Aztreonam 1 gm In Sodium 50 Chloride 0.9% 50 ml @ 100 mls/hr IVPB Q12H [facility] Rx# :[id number] Lactated Ringers 1,000 ml 650 @ 50 mls/hr IV .Q20H [facility] Rx#:[id number] metroNIDAZOLE-NS PMX 500 300 mg In Saline 1 100ml.bag @ 100 mls/hr IVPB Q6HR [facility] Rx#:[id number] Oral 900 Other: Voiding Method Toilet Toilet # Voids 2 2 - Labs CBC & Chem 7: 05/10/18 07:47 05/10/18 07:47
[2018-05-10] MEDS: LACTATED RINGERS 1,000 ML IV SCH (14:45)
--- NOTE | 2018-05-10 18:17 | P.PN ---
Subjective On-call hospitalist covering Dr. Reddy on 05/08/2018 This is a pleasant 52 years old male with past medical history of asthma, diverticulitis. Presents with another attack of acute diverticulitis. Patient has same pain in the left lower abdomen, slightly improved since admission from 9-10/10 down to 5-6/10 in severity. Patient is currently on clear liquid diet, slightly tolerating diet. He had vomited yesterday however no more vomiting s karla last night and this morning although he has some nausea. He does not have bowel movement. But he is passing gases. No chest pain or dyspnea. GI and surgery team R following the case, as they've been consulted by Dr. Reddy. Surgical team recommended no surgical intervention. GI team recommended stool softeners and continue with IV antibiotics. They recommended outpatient colonoscopy. Discussed this recommendation with the patient and he agrees. 05/09/2018 Patient is tolerating diet well, however he still have the same of left lower quadrant abdominal pain about 5-6/10 in severity. He has a bowel movement also. Surgical evaluation and follow-up is appreciated they recommended repeat CAT scan of the abdomen. Vitas looks stable. Remain on the same antibiotics of Levaquin and Flagyl. 05/10/2018 Patient left lower quadrant pain and tenderness are worsening today, it went up to 8/10 in severity. However there is no rebound tenderness. CAT scan of the abdomen showing worsening diverticulitis. Also patient started having loose bowel movement today about 5 times with small amount and no blood. Patient antibiotics has been and aztreonam is been added since patient is penicillin ALLERGIC. Consult has been placed for infectious disease for further evaluation. An stool has been sent for C. diff. Patient has been evaluated also by surgical and GI team. Objective - Vital Signs Vital signs: Vital Signs Temp 98.0 F 05/10/18 14:41 Pulse 78 05/10/18 14:41 Resp 17 05/10/18 14:41 BP 109/71 05/10/18 14:41 Pulse Ox 95 05/10/18 14:41 Intake & Output 05/09/18 05/10/18 05/10/18 18:59 06:59 18:59 Intake Total 900 1000 Balance 900 1000 Weight 73.845 kg Intake: Intake, IV Titration 1000 Amount Aztreonam 1 gm In Sodium 50 Chloride 0.9% 50 ml @ 100 mls/hr IVPB Q12H [facility] Rx# :[id number] Lactated Ringers 1,000 ml 650 @ 50 mls/hr IV .Q20H [facility] Rx#:[id number] metroNIDAZOLE-NS PMX 500 300 mg In Saline 1 100ml.bag @ 100 mls/hr IVPB Q6HR [facility] Rx#:[id number] Oral 900 Other: Voiding Method Toilet Toilet # Voids 2 2 4 # Bowel Movements 1 - Exam GENERAL: The patient is alert and oriented x3, not in any acute distress. Well developed, well nourished. HEENT: Pupils are round and equally reacting to light. EOMI. No scleral icterus. No conjunctival pallor. Normocephalic, atraumatic. No pharyngeal erythema. No thyromegaly. CARDIOVASCULAR: S1 and S2 present. No murmurs, rubs, or gallops. PULMONARY: Chest is clear to auscultation, no wheezing or crackles. -ABDOMEN: Soft, left lower quadrant tenderness, nondistended, normoactive bowel sounds. No palpable organomegaly. MUSCULOSKELETAL: No joint swelling or deformity. EXTREMITIES: No cyanosis, clubbing, or pedal edema. NEUROLOGICAL: Gross neurological examination did not reveal any focal deficits. SKIN: No rashes. - Labs CBC & Chem 7: 05/10/18 07:47 05/10/18 07:47 Assessment and Plan Assessment: Acute recurrent diverticulitis,. GI and surgery team of been consulted by Dr. Reddy Nausea vomiting secondary to above Dehydration, improving history of asthma. Not active tissue Plan: This is a pleasant 52 years old male who presents because of acute diverticulitis. GI and surgery team recommendation is appreciated. Continue with antibiotics. Symptomatic treatment. Advance diet as tolerated.Labs and m edication were reviewed.. Continue same treatment. Continue with symptomatic treatment. Resume home medication. Monitor lytes and vitals. DVT and GI prophylaxis. Further recommendations of the clinical course of the patient DVT prophylaxis: Subcutaneous heparin GI Prophylaxis: Pepcid Prognosis is guarded
--- NOTE | 2018-05-10 23:37 | CONS ---
CONSULTATION DATE OF SERVICE: 05/10/2018. REASON FOR CONSULTATION: Worsening of diverticulitis. HISTORY OF PRESENT ILLNESS: The patient is a 52-year-old male with a past medical history significant for diverticulitis with about 2 episodes in the past. The patient recently started having left lower quadrant abdominal pain, more of a dull aching, sharp, 4 to 5 out of 10, no radiation. With these symptoms the patient was seen by the primary care physician. The patient was diagnosed with diverticulitis and was started on Cipro and Flagyl. The patient was treated with antibiotics for about 4 days and did show improvement initially, however, after the patient went to work he noted to have more worsening pain in the left lower abdominal area. The pain increased to the point of almost 10/10. He came to the ER for evaluation of the same. On presentation, the patient did have a CT of the abdomen and pelvis that showed acute diverticulitis of the sigmoid colon with throughout the colon without obstruction. The patient on presentation was afebrile. His white count was elevated at 13.4. Kidney function was normal. The patient was started on Levaquin and Flagyl because of his penicillin allergy. The patient did have a repeat CT scan done yesterday which showed left-sided colon diverticulosis with continued findings of acute diverticulitis, slightly worse from the previous CT scan. No evidence of any abscess or free air. Infectious disease was consulted for further recommendation for antibiotic therapy. REVIEW OF SYSTEMS: CONSTITUTIONAL: Positive for weakness. Denies fever. EYES: No complaints. ENT: No complaints. RESPIRATORY: No complaint. CARDIOVASCULAR: No complaint. GENITOURINARY: No complaint. GASTROINTESTINAL: As per HPI. MUSCULOSKELETAL: No complaint. PSYCHOLOGICAL: No complaint. ENDOCRINE: No complaint. NEUROLOGICAL: No complaint. PAST MEDICAL HISTORY: Diverticulitis, possible history colonoscopy, hemorrhoids. SOCIAL HISTORY: No history of smoking. No drug use. FAMILY HISTORY: Both parents with history of cancer. ALLERGIES: PENICILLIN with rash. MEDICATIONS: 1. Tylenol. 2. Lovenox. 3. Pepcid. 4. Lactated Ringer's. 5. Morphine sulfate. 6. Narcan. 7. Zofran. 8. . 9. Levaquin. EXAMINATION: BP 102/80 with pulse of 78, temperature 98.3, he is 93% on room air. GENERAL DESCRIPTION: A middle-aged male lying in bed in no distress. No tachypnea or accessory muscle use. HEENT: Shows no pallor or scleral icterus. Oral mucosa is dry. No pharyngeal erythema or thrush. NECK: Trachea central. No thyromegaly. LUNGS: Unlabored breathing. Clear to auscultation. No wheeze or crackle. HEART: S1, S2. Regular rate and rhythm. ABDOMEN: Soft. He is nontender in the left lower quadrant area. No guarding or rigidity. EXTREMITIES: No edema of feet. SKIN: No rash or mass palpable. NEUROLOGICAL: The patient is awake, alert, oriented x3. Mood and affect normal. LABS: Hemoglobin is 14.9, white count 8.0, BUN of 12, creatinine was 0.72. CT report reviewed as mentioned above. DIAGNOSTIC IMPRESSION AND PLAN: 1. Patient admitted to the hospital with acute descending colon diverticulitis that has failed outpatient Cipro and vancomycin therapy. This patient apparently showed slight worsening between 05/06/2018 and 05/10/2018, more likely as the patient was treated with and Flagyl with patient already failing in the outpatient setting. 2. The patient with history of penicillin allergy. No history of any anaphylaxis. PLAN: 1. Discontinue the Levaquin and Azactam. 2. Will start the patient on the Rocephin 2 g daily and Flagyl 5 every 8 hours. 3. Bowel rest. 4. We will follow up on clinical course closely and adjust medication further if needed. Thank you for this consultation. Will follow this patient along with you. MMODL / IJN: [id number] /
[2018-05-11] MEDS: FAMOTIDINE 20 MG TAB PO SCH ×3 (00:56→21:03)
[2018-05-11] MEDS: metroNIDAZOLE-NS PMX 500 MG in SALINE 1 100ML.BAG IVPB SCH ×4 (00:56→17:43)
[2018-05-11] MEDS: ACETAMINOPHEN TAB 325 MG TAB PO PRN (05:41)
[2018-05-11 08:23] LABS: Basophils % (A) 0 %; Eosinophils # (A) 0.4 k/uL (0-0.7); Eosinophils % (A) 6 %; HCT 43.9 % (39.0-53.0); HGB 14.4 gm/dL (13.0-17.5); Lymphocytes % (A) 16 %; MCH 28.9 pg (25.0-35.0); MCHC 32.8 g/dL (31.0-37.0); MCV 88.2 fL (80.0-100.0); Mean Platelet Volume 6.6; Monocytes # (A) 0.5 k/uL (0-1.0); Monocytes % (A) 7 %; Neutrophils # (A) 4.5 k/uL (1.3-7.7); Neutrophils % (A) 70 %; Platelet Count 254 k/uL (150-450); RBC 4.97 m/uL (4.30-5.90); RDW 12.4 % (11.5-15.5); WBC 6.4 k/uL (3.8-10.6)
[2018-05-11] MEDS: ENOXAPARIN 40 MG/0.4 ML SYRINGE SQ SCH (08:23)
--- NOTE | 2018-05-11 10:04 | P.PN ---
Progress Note - Text Progress Note Date: 05/11/18 Patient feels slightly better today. His pain is slightly improved. On exam is lesser stable. His abdomen soft. There is some minimal left lower quadrant tenderness. There is no rebound or guarding. Diverticulitis. The patient is responding to the new antibiotic regime. We will follow with you.
[2018-05-11] MEDS: LACTATED RINGERS 1,000 ML IV SCH (13:13)
--- NOTE | 2018-05-11 17:29 | PN ---
PROGRESS NOTE DATE OF SERVICE: 05/11/2018. REASON FOR FOLLOWUP: Acute diverticulitis and antibiotic allergies. INTERVAL HISTORY: The patient is afebrile. The patient is feeling better compared to yesterday. His abdominal pain has improved. Denies having nausea, no vomiting, tolerating his clear liquid diet. He did have a loose stool but no blood or mucus in the stool. PHYSICAL EXAMINATION: Blood pressure 126/81, pulse of 91, temperature 98.4. He is 95% on room air. General description is a middle-aged male lying in bed in no distress. Respiratory system: Unlabored breathing. Clear to auscultation anteriorly. Heart S1, S2. Regular rate and rhythm. Abdomen soft. Minimal tenderness in the left lower quadrant area. Extremities: No edema of the feet. LABS: Hemoglobin is 14.4, white count 6.4. DIAGNOSTIC IMPRESSION AND PLAN: Patient with acute sigmoid diverticulitis failing outpatient oral Cipro and Flagyl and did not show improvement here in the hospital on IV Levaquin and Flagyl. Antibiotic has been adjusted to Rocephin 2 g daily yesterday along with Flagyl and seemed to have shown clinical improvement. We will continue the patient on IV Rocephin and the patient will continue plan to hopefully finish therapy with oral Ceftin and Flagyl possible Sunday or Sunday. Continue supportive care. MMJENL / JOSEN: [id number] /
--- NOTE | 2018-05-11 17:35 | PN ---
PROGRESS NOTE DATE OF SERVICE: 05/11/2018 Patient is a 52-year-old pleasant, white male admitted to hospital with acute sigmoid diverticulitis. He was initially on outpatient antibiotics with no improvement. Hence, was admitted to the hospital and was treated with IV antibiotics. Initially, he responded to the treatment, but 2 days ago started having worsening left lower quadrant abdominal pain. A repeat CT of the abdomen and pelvis showed persistent sigmoid diverticulitis with no evidence of abscess formation. Dr. Vizcaino was consulted and antibiotics were changed. Presently on Flagyl as well as Rocephin. He feels a little bit better this morning. He denies fever, chills, or night sweats. PHYSICAL EXAMINATION: He appears comfortable, in no apparent distress. VITAL SIGNS: Stable. Blood pressure 115/74, pulse is 77, temperature 98.7. HEENT examination unremarkable. Conjunctivae are pink. Sclerae nonicteric. Oral cavity no lesions. NECK: No JVD or lymph node enlargement. Chest was clear to auscultation. HEART: Regular rate and rhythm. ABDOMEN: Soft. Mild tenderness in the left lower quadrant area. Bowel sounds are positive. No organomegaly. EXTREMITIES: No pedal edema. SKIN: No rashes. NEURO: Alert and oriented x3. No focal deficits. LABS: WBC 6.4, hemoglobin 14.4, platelets are normal. Basic metabolic panel is within normal limits. IMPRESSION: Acute uncomplicated sigmoid diverticulitis presently on Rocephin and Flagyl and appears to be gradually improving. Repeat CT of the abdomen done 2 days ago did not show any evidence of complicated diverticulitis. RECOMMENDATION: 1. Continue with current antibiotic regimen. 2. Continue with a clear liquid diet. 3. Will follow him closely during his hospital stay. Thank you for this consultation. MMODL / IJN: [id number] /
[2018-05-11] MEDS: ONDANSETRON 4 MG/2 ML VIAL IVP PRN (21:03)
[2018-05-12] MEDS: metroNIDAZOLE-NS PMX 500 MG in SALINE 1 100ML.BAG IVPB SCH ×4 (00:55→17:38)
[2018-05-12] MEDS: FAMOTIDINE 20 MG TAB PO SCH ×2 (07:22→20:24)
[2018-05-12] MEDS: ENOXAPARIN 40 MG/0.4 ML SYRINGE SQ SCH ×2 (07:22→07:23)
[2018-05-12] MEDS: LACTATED RINGERS 1,000 ML IV SCH (07:31)
--- NOTE | 2018-05-12 11:33 | PN ---
PROGRESS NOTE DATE OF SERVICE: 05/12/2018. HISTORY: The patient is a 52-year-old pleasant white male admitted to hospital with acute sigmoid diverticulitis. He was initially on oral antibiotics at home with no help, hence admitted to the hospital and since then has been on IV antibiotics. Dr. Vizcaino was consulted because of worsening symptoms two days ago. Repeat CT scan on May 09 showed persistence of inflammation in the sigmoid colon suggestive of sigmoid diverticulitis. Presently on Rocephin and Flagyl. Today he is feeling much better. Still has some abdominal pain. On full liquid diet, tolerating well. No fever, chills, or night sweats. PHYSICAL EXAMINATION: Appears comfortable, no apparent distress. Vital signs stable. Blood pressure is 129/77, pulse is 70 temperature 98.5. HEENT examination unremarkable. Conjunctivae pink. Sclerae anicteric. Oral cavity no lesions. Neck, no JVD or lymph node enlargement. Chest clear to auscultation. Heart has a regular rate and rhythm. Abdomen is soft with mild tenderness in the left lower quadrant area. No rebound or rigidity. Extremities no pedal edema. Skin no rashes. Neurologic alert and oriented x3. No focal deficits. LABS: From today, WBC 6.4, hemoglobin 14.4, platelets are normal. IMPRESSION: Acute sigmoid diverticulitis with no evidence of abscess, on IV Rocephin and Flagyl, doing much better. RECOMMENDATIONS: 1. Advance to low-fiber diet. 2. Continue antibiotics. 3. We will follow him closely during his hospital stay. Thank you for this consultation. MMODL / IJN: [id number] /
--- NOTE | 2018-05-12 12:33 | P.PN ---
Subjective Progress Note Date: 05/11/18 Principal diagnosis: Acute diverticulitis Mr. Dasilva is a 52-year-old male with a past medical history of asthma coming in with a chief complaint of left lower abdominal pain and also threw up couple of times at home. Patient is currently being treated for acute recurrent diverti culitis. GI and surgical team on board and following the patient. He is on IV antibiotics as per ID Dr. Vizcaino's recommendation. On 05/11/2018 Patient is lying comfortably in bed appears to be no acute distress. He denies having any fevers chills or rigors. Patient has mild epigastric pain on and off. He denies having any diarrhea constipation or blood in stool. His last bowel movement was yesterday. Patient denies having any chest pain, cough or difficulty in breathing. But when I went into history and he was coughing but he was not bringing up any sputum. Active Medications Acetaminophen (Tylenol Tab) 650 mg PO Q6HR PRN Enoxaparin Sodium (Lovenox) 40 mg SQ DAILY [facility] Famotidine (Pepcid) 20 mg PO Q12HR [facility] Lactated Ringer's (Lactated Ringers) 1,000 mls @ 50 mls/hr IV .Q20H [facility] Metronidazole 500 mg/ IV (Solution) 100 mls @ 100 mls/hr IVPB Q6HR [facility] Ceftriaxone Sodium 2 gm/ (Sodium Chloride) 50 mls @ 100 mls/hr IVPB Q24HR [facility] Morphine Sulfate (Morphine Sulfate (Inj)) 4 mg IV Q4HR PRN Naloxone HCl (Narcan) 0.2 mg IV Q2M PRN Ondansetron HCl (Zofran) 4 mg IVP Q6HR PRN Objective - Vital Signs Vital signs: Vital Signs Temp 98.4 F 05/11/18 15:00 Pulse 91 05/11/18 15:00 Resp 16 05/11/18 15:00 BP 126/81 05/11/18 15:00 Pulse Ox 95 05/11/18 15:00 Intake & Output 05/10/18 05/11/18 05/11/18 18:59 06:59 18:59 Intake Total 880 710 Balance 880 710 Intake: Intake, IV Titration 400 350 Amount Lactated Ringers 1,000 ml 400 350 @ 50 mls/hr IV .Q20H [facility] Rx#:[id number] Oral 480 360 Other: Voiding Method Toilet Toilet # Voids 4 1 2 # Bowel Movements 1 1 - Exam GENERAL: The patient is alert and oriented x3, not in any acute distress. Well developed, well nourished. HEENT: No pallor. No icterus. No thyromegaly. CARDIOVASCULAR: S1 and S2 present. No murmurs, rubs, or gallops. PULMONARY: Chest is clear to auscultation, no wheezing or crackles. ABDOMEN: Soft, left lower quadrant tenderness, nondistended, normoactive bowel sounds. No palpable organomegaly. MUSCULOSKELETAL: No joint swelling or deformity. EXTREMITIES: No cyanosis, clubbing, or pedal edema. NEUROLOGICAL: Gross neurological examination did not reveal any focal deficits. SKIN: Extremely dry skin. Dry scaly areas over his bilateral lower extremities and bilateral upper extremities. - Labs CBC & Chem 7: 05/11/18 07:46 05/10/18 07:47 Assessment and Plan Assessment: ASSESSMENT Acute recurrent diverticulitis Dehydration improving Asthma not in exacerbation PLAN: Patient is currently on ceftriaxone and Flagyl as per TALIA Vizcaino's recommendation. Patient is currently on a clear liquid diet tolerating well. Further recommendations depending on the progress of the patient.
--- NOTE | 2018-05-12 13:19 | P.PN ---
Progress Note - Text Progress Note Date: 05/12/18 The patient is resting In his bed. He states his pain is improved. On exam his vital signs are stable. His abdomen soft. There is marked decrease in his left lower quadrant tenderness. Resolving diverticulitis. Patient will be most likely discharged home the next 24-48 hours.
--- NOTE | 2018-05-12 15:29 | P.PN ---
Subjective Progress Note Date: 05/12/18 Principal diagnosis: Acute diverticulitis Mr. Dasilva is a 52-year-old male with a past medical history of asthma coming in with a chief complaint of left lower abdominal pain and also threw up couple of times at home. Patient is currently being treated for acute recurrent diverti culitis. GI and surgical team on board and following the patient. He is on IV antibiotics as per TALIA Vizcaino's recommendation. On 05/12/18 - Patient is lying comfortably in bed appears to be no acute distress. He denies having any fevers chills or rigors. Patient states his last bowel movement was this morning at around 10 AM , no blood or mucus. Patient was on liquid diet and he yesterday and this morning he had a full breakfast and was able to tolerate it. Patient reports his left lower quadrant abdominal pain is 4 out of 10 compared to 7 out of 10 from yesterday. Patient denies having any fever chills or rigors. No cough or difficulty in breathing. No palpitations or chest pain. No hematuria or dysuria. Active Medications Acetaminophen (Tylenol Tab) 650 mg PO Q6HR PRN PRN Reason: Fever and/ or Pain Last Admin: 05/11/18 05:41 Dose: 650 mg Documented by: Enoxaparin Sodium (Lovenox) 40 mg SQ DAILY [facility] Last Admin: 05/12/18 07:23 Dose: Not Given Documented by: Famotidine (Pepcid) 20 mg PO Q12HR [facility] Last Admin: 05/12/18 07:22 Dose: 20 mg Documented by: Lactated Ringer's (Lactated Ringers) 1,000 mls @ 50 mls/hr IV .Q20H [facility] Last Admin: 05/12/18 07:31 Dose: 50 mls/hr Documented by: Metronidazole 500 mg/ IV (Solution) 100 mls @ 100 mls/hr IVPB Q6HR [facility] Last Admin: 05/12/18 11:38 Dose: 100 mls/hr Documented by: Ceftriaxone Sodium 2 gm/ (Sodium Chloride) 50 mls @ 100 mls/hr IVPB Q24HR [facility] Last Admin: 05/12/18 07:21 Dose: 100 mls/hr Documented by: Morphine Sulfate (Morphine Sulfate (Inj)) 4 mg IV Q4HR PRN PRN Reason: Severe Pain Last Admin: 05/10/18 10:49 Dose: 4 mg Documented by: Naloxone HCl (Narcan) 0.2 mg IV Q2M PRN PRN Reason: Opioid Reversal Ondansetron HCl (Zofran) 4 mg IVP Q6HR PRN PRN Reason: Nausea And Vomiting Last Admin: 05/11/18 21:03 Dose: 4 mg Documented by: Objective - Vital Signs Vital signs: Vital Signs Temp 98.6 F 05/12/18 07:00 Pulse 78 05/12/18 07:00 Resp 16 05/12/18 07:00 BP 118/79 05/12/18 07:00 Pulse Ox 97 05/12/18 07:00 Intake & Output 05/11/18 05/12/18 05/12/18 18:59 06:59 18:59 Intake Total 710 1650 720 Balance 710 1650 720 Intake: Intake, IV Titration 350 950 Amount Lactated Ringers 1,000 ml 350 750 @ 50 mls/hr IV .Q20H [facility] Rx#:[id number] metroNIDAZOLE-NS PMX 500 200 mg In Saline 1 100ml.bag @ 100 mls/hr IVPB Q6HR [facility] Rx#:[id number] Oral 360 700 720 Other: Voiding Method Toilet # Voids 2 2 # Bowel Movements 1 - Exam GENERAL: The patient is alert and oriented x3, not in any acute distress. Well developed, well nourished. HEENT: No pallor. No icterus. No thyromegaly. CARDIOVASCULAR: S1 and S2 present. No murmurs, rubs, or gallops. PULMONARY: Chest is clear to auscultation, no wheezing or crackles. ABDOMEN: Soft, left lower quadrant tenderness, nondistended, normoactive bowel sounds. No palpable organomegaly. MUSCULOSKELETAL: No joint swelling or deformity. EXTREMITIES: No cyanosis, clubbing, or pedal edema. NEUROLOGICAL: Gross neurological examination did not reveal any focal deficits. - Labs CBC & Chem 7: 05/11/18 07:46 05/10/18 07:47 Assessment and Plan Assessment: ASSESSMENT Acute recurrent diverticulitis Dehydration improving Asthma not in exacerbation PLAN: Patient is currently on ceftriaxone and Flagyl as per ID Dr. Vizcaino's recommendation. Patient tolerated his lunch the afternoon. Continue with the current medication regimen. Further recommendations depending on the progress of the patient. Anticipate discharge in the next 24-48 hours.
--- NOTE | 2018-05-12 23:21 | PN ---
PROGRESS NOTE DATE OF SERVICE: 05/12/2018. REASON FOR FOLLOWUP: Acute sigmoid diverticulitis. INTERVAL HISTORY: The patient is afebrile. The patient's abdominal pain has improved. The patient has been started on a soft diet which the patient has been tolerating. Denies any chest pain or shortness of breath or cough. PHYSICAL EXAMINATION: Blood pressure 122/83 with a pulse of 71, temperature 98, he is 97% on room air. GENERAL DESCRIPTION: A middle-aged male lying in bed in no distress. RESPIRATORY SYSTEM: Unlabored breathing. Clear to auscultation anteriorly. HEART: S1, S2. Regular rate and rhythm. ABDOMEN: Soft, no tenderness. EXTREMITIES: No edema of the feet. LABS: Hemoglobin 14.1, white count 6.4. DIAGNOSTIC IMPRESSION AND PLAN: Patient with acute sigmoid diverticulitis, which did show initial worsening on IV Levaquin and Flagyl and did not respond to outpatient treatment. The patient seemed to be improved on Rocephin and Flagyl. That will be continued. Will transition to oral Ceftin and Flagyl for another 7 to 10 days on discharge and close outpatient followup. MMODL / IJN: [id number] /
[2018-05-13] MEDS: metroNIDAZOLE-NS PMX 500 MG in SALINE 1 100ML.BAG IVPB SCH ×3 (00:30→12:15)
[2018-05-13] MEDS: LACTATED RINGERS 1,000 ML IV SCH (00:31)
[2018-05-13 07:44] VITALS: BP 122/76; PULSE 97; RESP 12; TEMP 98.2
[2018-05-13] MEDS: ENOXAPARIN 40 MG/0.4 ML SYRINGE SQ SCH (08:22)
[2018-05-13] MEDS: FAMOTIDINE 20 MG TAB PO SCH (08:22)
--- NOTE | 2018-05-13 10:12 | P.PN ---
Subjective Progress Note Date: 05/13/18 CHIEF COMPLAINT: Diverticulitis HISTORY OF PRESENT ILLNESS: patient examined at the bedside. Patient states he is tolerating a low fiber diet. Denies nausea or vomiting. Reports minimal abdominal pain. Currently rating a 1 or 2 out of 10. Infectious disease is following. He is hoping to be discharged home today. PHYSICAL EXAM: VITAL SIGNS: Currently stable. GENERAL: Well-developed in no acute distress. HEENT: No sclera icterus. Extraocular movements grossly intact. Moist buccal mucosa. Head is atraumatic, normocephalic. Hears conversational speech. No nasal drainage. NECK: Supple without lymphadenopathy. CHEST: Non-labored respirations and equal bilateral excursions. CARDIOVASCULAR: Regular rate with regular rhythm. Palpable 2+ radial pulses. ABDOMEN: Soft. Nondistended. minimal tenderness upon palpation of left lower quadrant. MUSCULOSKELETAL: No clubbing, cyanosis or edema. NEUROLOGIC: No focal or lateralizing signs. Cranial nerves II through XII grossly intact. PSYCH: Appropriate affect. Alert and oriented to person, place and time. SKIN: Well perfused. Good skin turgor. ASSESSMENT: 1. Acute diverticulitis, failed outpatient treatment PLAN: 1. Continue current diet 2. Antibiotics per ID 3. Patient scheduled for outpatient colonoscopy per GI team 4. Patient is stable from a surgical standpoint Nurse practitioner note has been reviewed by physician. Signing provider agrees with the documented findings, assessment, and plan of care. Objective - Vital Signs Vital signs: Vital Signs Temp 98.2 F 05/13/18 07:00 Pulse 97 05/13/18 07:00 Resp 12 05/13/18 07:00 BP 122/76 05/13/18 07:00 Pulse Ox 97 05/13/18 07:00 Intake & Output 05/12/18 05/13/18 05/13/18 18:59 06:59 18:59 Intake Total 1200 600 Balance 1200 600 Intake: Intake, IV Titration 600 Amount Lactated Ringers 1,000 ml 500 @ 50 mls/hr IV .Q20H [facility] Rx#:[id number] cefTRIAXone 2 gm In 100 Sodium Chloride 0.9% 50 ml @ 100 mls/hr IVPB Q24HR [facility] Rx#:[id number] Oral 1200 Other: # Voids 3 - Labs CBC & Chem 7: 05/11/18 07:46 05/10/18 07:47
--- NOTE | 2018-05-13 17:06 | PN ---
PROGRESS NOTE DATE OF SERVICE: 05/13/2018 REASON FOR FOLLOWUP VISIT: Acute sigmoid diverticulitis failing outpatient oral antibiotic therapy. INTERVAL HISTORY: The patient is currently afebrile. The patient is breathing comfortably. Denies having any chest pain or any cough. Abdominal pain has improved and tolerating a regular diet and no diarrhea. PHYSICAL EXAMINATION: Blood pressure 122/76, pulse of 97, temperature 98.2, he is 97% on room air. General description is a middle-aged male lying in bed in no distress. Respiratory system: Unlabored breathing. Clear to auscultation anteriorly. Heart S1, S2. Regular rate and rhythm. Abdomen: Soft, no tenderness. LABS: Hemoglobin is 14.4, white count 6.4, BUN of 12, creatinine 0.72. DIAGNOSTIC IMPRESSION AND PLAN: Patient with acute sigmoid diverticulitis that has failed outpatient oral antibiotic therapy in the form of Cipro and Flagyl and did not show improvement on IV Levaquin and Flagyl here. Currently doing well on Rocephin and Flagyl. Patient will be switched to oral Ceftin and Flagyl for another 10 days with close outpatient followup. All his questions and concerns were answered. MMODL / IJN: [id number] /
--- NOTE | 2018-05-14 10:47 | DS ---
DISCHARGE SUMMARY DATE OF ADMISSION: 05/07/2018. DATE OF DISCHARGE: 05/13/2018 FINAL DIAGNOSES: 1. Acute severe left colonic diverticulitis having failed outpatient treatment. 2. Intermittent asthma. 3. Leukocytosis from above. HOSPITAL COURSE: This patient failed outpatient treatment for diverticulitis, presented with the same. Patient was slow to respond. Doing better by the time of discharge. Today, tolerating a soft, bland diet, having some mushy stools, up and about. No fever. No chills. Patient is seen by Dr. Soriano from [facility] who okayed the patient to go home and also from Dr. Vizcaino from [place] who cleared the patient. Care was discussed with the patient and . Questions were answered. PHYSICAL EXAMINATION: Temperature 98.2, pulse 97, blood pressure 120/76, pulse ox 97% on room air. ABDOMEN: Left lower quadrant mild tenderness. No guarding or rigidity. INVESTIGATIONS: White count 6.4. DISCHARGE MEDICATIONS: 1. ProAir 2 puffs q.4 p.r.n. 2. Senokot S 1 tablet p.o. b.i.d. 3. Tylenol 650 mg q.6 p.r.n. 4. Ceftin 500 mg p.o. b.i.d., 20 capsules. 5. Flagyl 500 mg q.8, [address] Corby Boone on 05/17/2018; Dr. Vizcaino on . Low-fiber diet. Patient can return to work this coming Sunday and also to follow up with Dr. Soriano. Discussion and discharge planning more than 35 minutes. MMODL / IJN: [id number] /
== END 2018-05-13 16:46 | disposition home or self-care (01) | DRG 392 ==
LOC: EC 21:02 → 4SSUR 05-07 00:36
PROVIDERS: ADMIT Hospitalist; ATTEND Hospitalist
DX: K57.32 Diverticulitis of large intestine without perforation or abscess without bleeding (principal); E86.0 Dehydration; R11.2 Nausea with vomiting, unspecified; J45.20 Mild intermittent asthma, uncomplicated; Z88.0 Allergy status to penicillin; Z91.018 Allergy to other foods; Z91.010 Allergy to peanuts; Z80.0 Family history of malignant neoplasm of digestive organs
CPT/HCPCS: 36415; 74176; 74177; 80048; 80053; 82378; 83690; 85025; 96361; 96365; 96375; 96376; 99285

== ENCOUNTER 2018-06-06 07:23 | Day surgery (SDC) | payer BC ==
[2018-06-04 14:57] VITALS: BMI 24.3
[~2018-06-06 07:23] MED LIST changes: -DEXAMETHASONE SOD PHOSPHATE 10 MG/ML 1 ML VIAL IV ONE; -HEPARIN SODIUM,PORCINE 5,000 UNIT/ML 1 ML VIAL SQ ONE; -HYDROmorphone 1 MG/ML 1 ML SYRINGE IVP PRN; +MIDAZOLAM (PF) 2 MG/2 ML VIAL IV PRN; -Pre Op ABX Message 1 EACH MISC MISCELLANE ONE
[2018-06-06 07:48] VITALS: RESP 16; TEMP 97.8
[2018-06-06] MEDS ORDERED: PROPOFOL 10 MG/ML 20 ML VIAL IV ONE (08:32)
[2018-06-06] MEDS ORDERED: LIDOCAINE 1% INJ 10MG/ML (20 ML MDV) ONE (08:32)
--- NOTE | 2018-06-06 08:59 | P.PCN ---
Date of Procedure: 06/06/18 Procedure(s) Performed: Procedure: Total colonoscopy. Preoperative diagnosis: Screening for neoplasia. Postoperative diagnosis: Diverticulosis with no evidence of acute diverticulitis, strictures, polyps or cancer. Preparation: HalfLytely prep. Sedation: Was provided by anesthesia. Brief clinical history: The patient is a 53-year-old male who is scheduled for this evaluation for screening for neoplasia. He had an episode of diverticulitis last month. No family history of colon cancer. The patient had a colonoscopy in his 20s for suspected colitis but has done well since. History of hemorrhoid surgery. This evaluation is to assess for complicated diverticular disease, neoplasia or other pathology precipitating an episode of diverticulitis. Procedure: With the patient on his left lateral decubitus position and after informed consent and adequate sedation, the perianal area was inspected and it did not show any fissures or fistulas. There were no masses felt on digital rectal examination. The Olympus CFH 190 L video colonoscope was then inserted in the rectum in the usual fashion and advanced to the cecum. There were multiple diverticular orifices seen scattered along the length of the bowel, mostly on the left side with no evidence of acute diverticulitis or strictures. The mucosa appeared healthy. No polyps or tumors were seen. I retroflexed the endoscope in the rectum before the endoscope was withdrawn. The patient tolerated the procedure well. Plan: The patient was reassured. Discussed dietary measures. He will follow up with you as planned and I recommended repeat exam in 10 years.
[2018-06-06 09:14] VITALS: BP 125/86; PULSE 74
== END 2018-06-06 09:36 | disposition home or self-care (01) ==
LOC: ORWHC2ENDO 07:23
DX: Z12.11 Encounter for screening for malignant neoplasm of colon (principal); K57.30 Diverticulosis of large intestine without perforation or abscess without bleeding; Z88.0 Allergy status to penicillin; Z91.018 Allergy to other foods; Z91.010 Allergy to peanuts; J45.909 Unspecified asthma, uncomplicated; Z79.899 Other long term (current) drug therapy
CPT/HCPCS: J2001; J2704; G0121; 45378

== ENCOUNTER 2018-12-13 00:54 | Emergency (ER) | payer BC, OTHER ==
[2018-12-13 01:12] VITALS: BP 124/80; PULSE 81; RESP 16; TEMP 97.8
[2018-12-13] MEDS ORDERED: LIDOCAINE 1% INJ 10MG/ML (20 ML MDV) SQ ONE (01:16)
--- NOTE | 2018-12-13 02:13 | ED ---
General Adult HPI - General Chief complaint: Fall Stated complaint: Chin lac-[facility] Time Seen by Provider: 12/13/18 01:15 Source: patient, RN notes reviewed Mode of arrival: ambulatory Limitations: no limitations - History of Present Illness Initial comments: 53-year-old male with a past medical history of asthma, diverticulitis presents to the emergency department for a chief complaint of laceration. Patient was at work when he tripped over a rug and fell hitting his chin on a piece of equipment. Patient denies hitting his head or headache. Denies any use of blood thinners. Denies any intraoral injury. Patient is up-to-date on tetanus in the past 3 years.Patient has no other complaints at this time including shortness of breath, chest pain, abdominal pain, nausea or vomiting, headache, or visual changes. - Related Data Home Medications Medication Instructions Recorded Confirmed Albuterol Sulfate [Proair Hfa] 2 puff INHALATION RT-Q4H PRN 07/28/15 12/13/18 Allergies Allergy/AdvReac Type Severity Reaction Status Date / Time peanut Allergy throat Verified 12/13/18 01:12 closes tree nut Allergy throat Verified 12/13/18 01:12 closes Penicillins AdvReac Nausea & Verified 12/13/18 01:12 Vomiting & Diarrhea Review of Systems ROS Statement: Those systems with pertinent positive or pertinent negative responses have been documented in the HPI. ROS Other: All systems not noted in ROS Statement are negative. Past Medical History Past Medical History: Asthma Additional Past Medical History / Comment(s): diverticulitis History of Any Multi-Drug Resistant Organisms: None Reported Past Surgical History: No Surgical Hx Reported Additional Past Surgical History / Comment(s): colonoscopy, hemorrhoidectomy Past Anesthesia/Blood Transfusion Reactions: No Reported Reaction Past Psychological History: No Psychological Hx Reported Smoking Status: Never smoker Past Alcohol Use History: Occasional Past Drug Use History: None Reported - Past Family History Mother Family Medical History: Cancer Additional Family Medical History / Comment(s): COLON Father Family Medical History: Cancer General Exam Limitations: no limitations General appearance: alert, in no apparent distress Head exam: Present: atraumatic, normocephalic, normal inspection Eye exam: Present: normal appearance, PERRL, EOMI. Absent: scleral icterus, conjunctival injection, periorbital swelling ENT exam: Present: normal exam, normal oropharynx, mucous membranes moist, TM's normal bilaterally, normal external ear exam Neck exam: Present: normal inspection, full ROM. Absent: tenderness, meningismus, lymphadenopathy Respiratory exam: Present: normal lung sounds bilaterally. Absent: respiratory distress, wheezes, rales, rhonchi, stridor Cardiovascular Exam: Present: regular rate, normal rhythm, normal heart sounds. Absent: systolic murmur, diastolic murmur, rubs, gallop, clicks Neurological exam: Present: alert, oriented X3, CN II-XII intact, other (gcs 15) Psychiatric exam: Present: normal affect, normal mood Skin exam: Present: other (Patient has a 3 cm laceration noted to the chin as well as a 3 cm laceration to the right mandible. deep structures intact) Course Vital Signs 12/13/18 01:08 Temperature 97.8 F Pulse Rate 81 Respiratory 16 Rate Blood Pressure 124/80 O2 Sat by Pulse 98 Oximetry Procedures - Laceration Laceration #1 Consent Obtained: verbal consent Indication: laceration Site: face (chin) Size (cm): 3 Description: linear Depth: simple, single layer Anesthetic Used: lidocaine 1% Anesthesia Technique: local infiltration Amount (mls): 3 Pre-repair: wound explored, irrigated extensively (with saline pressure irrigation), deep structures intact Type of Sutures: other (ethilon) Size of Sutures: 5-0 Number of Sutures: 4 Technique: simple, interrupted Patient Tolerated Procedure: well, no complications Laceration #2 Consent Obtained: verbal consent Indication: laceration Site: face (R mandible) Description: linear Depth: simple, single layer Anesthetic Used: lidocaine 1% Anesthesia Technique: local infiltration Amount (mls): 5 Pre-repair: wound explored, irrigated extensively (with saline pressure irrigation), deep structures intact Type of Sutures: other (ethilon) Size of Sutures: 5-0 Number of Sutures: 4 Technique: simple, interrupted Patient Tolerated Procedure: well, no complications Medical Decision Making - Medical Decision Making Patient denies headache or any head injury. Lacerations were cleaned and repaired. Discussed return parameters including those for infection. Discussed returning in 5-7 days for suture removal. Patient will follow up with primary care as well. Disposition Clinical Impression: Fall, Laceration Disposition: HOME SELF-CARE Condition: Good Instructions (If sedation given, give patient instructions): Care For Your Stitches (ED), Laceration (ED) Additional Instructions: Please keep the area clean. Monitor for signs of infection such as spreading streaking redness, drainage, fever and return if these occur. Follow-up with primary care in 1-2 days. Return to the emergency department for any worsening symptoms. Return in 5-7 days for suture removal. Is patient prescribed a controlled substance at d/c from ED?: No Referrals: Corby Boone MD [Primary Care Provider] - 1-2 days Time of Disposition: 02:12
== END 2018-12-13 02:45 | disposition home or self-care (01) ==
LOC: EC 00:54
DX: S01.81XA Laceration without foreign body of other part of head, initial encounter (principal); J45.909 Unspecified asthma, uncomplicated; Z88.0 Allergy status to penicillin; Z91.010 Allergy to peanuts; Z91.018 Allergy to other foods; W01.198A Fall on same level from slipping, tripping and stumbling with subsequent striking against other object, initial encounter; Y92.69 Other specified industrial and construction area as the place of occurrence of the external cause; Y99.0 Civilian activity done for income or pay
CPT/HCPCS: 99282; 12013; J2001

== ENCOUNTER 2019-02-27 00:10 | Emergency (ER) | payer BC, OTHER ==
--- NOTE | 2019-02-27 00:53 | ED ---
Fall HPI - General Chief Complaint: Fall Stated Complaint: Fall Time Seen by Provider: 02/27/19 00:19 Source: patient Mode of arrival: ambulatory - History of Present Illness Initial Comments: This patient is a 53-year-old man who presents to be evaluated for complaints related to a fall approximately 9 days ago. The patient states that he had been at home and was carrying an object when he lost his balance, due to having chronic left foot drop, and he fell backwards, striking his coccyx and the occipital area of his head. There was no loss of consciousness. The patient states that since that time been having pain to the coccyx as well as continuing to have dizziness. He states that the initial headache has resolved though. Patient denies any new neurologic symptoms, but on review of systems does have the left foot drop and also a little bit of left hand weakness. He has had these for approximately one year and has had a workup with the neurologist previously. 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 Witnessed: no Place Fall Occurred: home Loss of Consciousness: none Prolonged Down Time?: no Location: head, buttocks Severity: moderate Quality: aching Context: tripped/slipped - Related Data Home Medications Medication Instructions Recorded Confirmed Albuterol Sulfate [Proair Hfa] 2 puff INHALATION RT-Q4H PRN 07/28/15 12/13/18 Previous Rx's Medication Instructions Recorded Ibuprofen [Motrin] 600 mg PO Q8HR PRN #20 tab 02/27/19 Allergies Allergy/AdvReac Type Severity Reaction Status Date / Time peanut Allergy throat Verified 02/27/19 00:16 closes tree nut Allergy throat Verified 02/27/19 00:16 closes Penicillins AdvReac Nausea & Verified 02/27/19 00:16 Vomiting & Diarrhea Review of Systems ROS Statement: Those systems with pertinent positive or pertinent negative responses have been documented in the HPI. ROS Other: All systems not noted in ROS Statement are negative. Constitutional: Denies: fever, chills Eyes: Denies: vision change ENT: Denies: hearing loss Respiratory: Denies: cough, dyspnea Cardiovascular: Denies: chest pain, palpitations, edema, syncope Gastrointestinal: Denies: abdominal pain, vomiting, diarrhea Musculoskeletal: Reports: as per HPI, back pain (Coccyx). Denies: joint swelling, arthralgia, myalgia Skin: Denies: lesions Neurological: Reports: vertigo. Denies: headache, weakness, numbness, pare sthesias, confusion Past Medical History Past Medical History: Asthma Additional Past Medical History / Comment(s): diverticulitis History of Any Multi-Drug Resistant Organisms: None Reported Past Surgical History: No Surgical Hx Reported Additional Past Surgical History / Comment(s): colonoscopy, hemorrhoidectomy Past Anesthesia/Blood Transfusion Reactions: No Reported Reaction Past Psychological History: No Psychological Hx Reported Smoking Status: Never smoker Past Alcohol Use History: Occasional Past Drug Use History: None Reported - Past Family History Mother Family Medical History: Cancer Additional Family Medical History / Comment(s): COLON Father Family Medical History: Cancer General Exam Limitations: no limitations General appearance: alert, in no apparent distress Head exam: Present: atraumatic, normocephalic Eye exam: Present: normal appearance, PERRL, EOMI. Absent: scleral icterus, conjunctival injection, nystagmus ENT exam: Present: normal oropharynx Neck exam: Present: normal inspection, full ROM. Absent: tenderness, meningis mus Respiratory exam: Present: normal lung sounds bilaterally. Absent: respiratory distress, wheezes, rales, rhonchi, stridor, chest wall tenderness Cardiovascular Exam: Present: regular rate, normal rhythm, normal heart sounds. Absent: systolic murmur, diastolic murmur, rubs, gallop GI/Abdominal exam: Present: soft. Absent: distended, tenderness, guarding, rebound, rigid, mass Extremities exam: Present: normal capillary refill, other (Patient wears left ankle-foot orthotic). Absent: pedal edema, calf tenderness Back exam: Present: normal inspection, tenderness (Coccyx). Absent: CVA tenderness (R), CVA tenderness (L), paraspinal tenderness, vertebral tenderness Neurological exam: Present: alert, oriented X3, CN II-XII intact, motor sensory deficit (There is left foot drop. Patient has some subjective weakness of the extensors of the left hand, chronic) Skin exam: Present: warm, dry, intact, normal color. Absent: rash Course Vital Signs 02/27/19 00:14 Temperature 97.7 F Pulse Rate 87 Respiratory 20 Rate Blood Pressure 130/85 O2 Sat by Pulse 99 Oximetry Disposition Clinical Impression: Fall Disposition: HOME SELF-CARE Condition: Fair Instructions (If sedation given, give patient instructions): Head Injury (ED), Contusion in Adults (ED), Fall Prevention (ED) Prescriptions: Ibuprofen [Motrin] 600 mg PO Q8HR PRN #20 tab PRN Reason: Pain Is patient prescribed a controlled substance at d/c from ED?: No Referrals: Corby Boone MD [Primary Care Provider] - 1-2 days Travis Fernando MD [STAFF PHYSICIAN] - 1-2 days
--- NOTE | 2019-02-27 01:31 | CT ---
EXAMINATION TYPE: CT brain wo con DATE OF EXAM: 02/27/2019 COMPARISON: None HISTORY: fall CT DLP: 1098.4 mGycm Automated exposure control for dose reduction was used. Multiple axial sections were obtained of the brain without contrast. Ventricles and sulci appear normal. There is no mass effect nor midline shift. There is no sign of in tracranial hemorrhage. The calvarium is intact. There is no evidence of cerebral edema. IMPRESSION: Normal head CT scan.
--- NOTE | 2019-02-27 01:36 | XR ---
EXAMINATION TYPE: XR sacrum coccyx DATE OF EXAM: 02/27/2019 COMPARISON: NONE HISTORY: Fall. Sacral pain. TECHNIQUE: 3 views FINDINGS: Segments have normal alignment. I see no fracture. Sacroiliac joints appear intact. There i s no evidence of focal bone destruction. IMPRESSION: Negative sacrum and coccyx exam.
[2019-02-27 01:52] VITALS: BP 139/79; PULSE 77; RESP 16; TEMP 98
== END 2019-02-27 01:52 | disposition home or self-care (01) ==
LOC: EC 00:10
DX: Z04.3 Encounter for examination and observation following other accident (principal); Z88.0 Allergy status to penicillin; Z91.010 Allergy to peanuts; Z91.018 Allergy to other foods
CPT/HCPCS: 70450; 72220; 99284

== ENCOUNTER → 2019-04-16 | Outpatient (CLI) | payer BC ==
--- NOTE | 2019-04-16 22:36 | MR ---
EXAMINATION TYPE: MR cervical spine wo/w con DATE OF EXAM: 04/16/2019 COMPARISON: None HISTORY: Cervical spondylosis w/radiculopathy TECHNIQUE: Multiplanar, multisequence images of the cervical spine were acquired utilizing 7 mL intravenous Gada vist gadolinium contrast. Diffusion weighted imaging was performed. C2-C3: No evidence for degenerative disc disease. No disc bulge/herniation or protrusion. No Canal stenosis. Foramina are patent bilaterally. C3-C4: No evidence for degenerative disc disease. No disc bulge/herniation or protrusion. No Canal stenosis. Foramina are patent bilaterally. Mild uncovertebral joint hypertrophy bilaterally C4-C5: Focal moderate-sized central disc herniation with compression of the thecal sac. Disc herniati on abuts the anterior margin the spinal cord without displacement. Neural foramina patent bilaterally . C5-C6: Large central disc herniation with anterior compression spinal cord. There is extruded disc ma terial extending superiorly along the posterior margin of the C6 vertebral body. Neural foramina juan in patent. C6-C7: Focal central disc herniation with mild anterior compression the spinal cord. Neural foramina patent. C7-T1: No evidence for degenerative disc disease. No disc bulge/herniation or protrusion. No Canal stenosis. Foramina are patent bilaterally. Cervical segments are intact. There is normal alignment. Cervical spinal cord is of normal signal. Cerebellar tonsils low-lying in position at the level the foramen magnum.. Changes of chronic sinusi tis. There is disc desiccation at levels C3-T1 compatible with mild multilevel degenerative disc dise ase. Report called to referring clinician. IMPRESSION: 1. There are large disc herniations at C5-6 and C6-C7 with extruded disc material extending posterior to the C6 vertebral body. At both levels there is anterior mild compression of the spinal cord with no definite abnormal intrinsic signal or enhancement within the spinal cord. 2. Focal moderate-sized disc herniation C4-C5 which abuts the anterior margin the spinal cord without displacement or compression. 3. Low-lying cerebellar tonsils correlate for Chiari malformation Approximately 3 mm below the foramen magnum.
== END | disposition home or self-care (01) ==
LOC: RADMRIMAIN 18:50
PROVIDERS: ATTEND Family Medicine
DX: M50.121 Cervical disc disorder at C4-C5 level with radiculopathy (principal)
CPT/HCPCS: 72156; A9585

== ENCOUNTER → 2019-05-05 | Outpatient (CLI) | payer BC ==
[2019-05-05 12:56] LABS: Basophils % (A) 0 %; Eosinophils # (A) 0.5 k/uL (0-0.7); Eosinophils % (A) 5 %; HCT 49.7 % (39.0-53.0); HGB 16.5 gm/dL (13.0-17.5); Lymphocytes # (A) 1.1 k/uL (1.0-4.8); Lymphocytes % (A) 13 %; MCH 29.3 pg (25.0-35.0); MCHC 33.2 g/dL (31.0-37.0); MCV 88.3 fL (80.0-100.0); Mean Platelet Volume 8.5; Monocytes # (A) 0.5 k/uL (0-1.0); Monocytes % (A) 6 %; Neutrophils # (A) 6.5 k/uL (1.3-7.7); Neutrophils % (A) 74 %; Platelet Count 188 k/uL (150-450); RBC 5.62 m/uL (4.30-5.90); RDW 12.3 % (11.5-15.5); WBC 8.8 k/uL (3.8-10.6)
[2019-05-05 13:03] LABS: INR 0.9 (<1.2); Partial Thromboplastin Time 22.9 sec (22.0-30.0); Prothrombin Time 9.7 sec (9.0-12.0)
[2019-05-05 13:23] LABS: Amorphous Sediment,Urine Rare /hpf; Appearance,Urine Cloudy (Clear); Bacteria,Urine Rare /hpf; Bilirubin,Urine Negative (Negative); Blood,Urine Negative (Negative); Color,Urine Yellow; Glucose,Urine (UA) Negative (Negative); Ketones,Urine Negative (Negative); Leukocyte Esterase,Urine Negative (Negative); Mucus,Urine Rare /hpf; Nitrite,Urine Negative (Negative); Protein,Urine Negative (Negative); Specific Gravity,Urine 1.017 (1.001-1.035); Urobilinogen,Urine <2.0 mg/dL (<2.0); WBC,Urine <1 /hpf (0-5)
[2019-05-05 13:26] LABS: African American GFR (CKD) >90 (>60 ml/min/1.73 sqM); Anion Gap 10 mmol/L; Blood Urea Nitrogen 17 mg/dL (9-20); Calcium 9.5 mg/dL (8.4-10.2); Carbon Dioxide 23 mmol/L (22-30); Chloride 104 mmol/L (98-107); Glucose 101 mg/dL (74-99); Non-African American GFR(CKD) >90 (>60 ml/min/1.73 sqM); Potassium 4.6 mmol/L (3.5-5.1); Sodium 137 mmol/L (137-145)
--- NOTE | 2019-05-05 14:50 | XR ---
EXAMINATION TYPE: XR chest 2V DATE OF EXAM: 05/05/2019 COMPARISON: NONE HISTORY: [id number] TECHNIQUE: Frontal and lateral views of the chest are obtained. FINDINGS: There is no focal air space opacity, pleural effusion, or pneumothorax seen. The cardiac silhouette size is within normal limits. The osseous structures are intact. IMPRESSION: No acute cardiopulmonary process.
== END | disposition home or self-care (01) ==
LOC: LABPAT 11:09
PROVIDERS: ATTEND Orthopaedic Surgery Orthopaedic Surgery of the Spine
DX: Z01.818 Encounter for other preprocedural examination (principal); Z01.812 Encounter for preprocedural laboratory examination; G95.89 Other specified diseases of spinal cord
CPT/HCPCS: 36415; 71046; 80048; 81001; 85025; 85610; 85730; 86850; 86900; 86901; 93005

== ENCOUNTER 2019-05-14 06:53 | Inpatient (IN) | payer BC ==
[~2019-05-14 06:53] MED LIST changes: +BACITRACIN 50,000 UNIT, POLYMYXIN B 500,000 UNIT in SODIUM CHLORIDE 0.9% IRRIGATIO 1,00... IRRIGATION ONE; +DEXAMETHASONE SOD PHOSPHATE 10 MG/ML 1 ML VIAL IV ONE; -LACTATED RINGERS 1,000 ML IV SCH; +LIDOCAINE 1% (10MG/ML) FOR IV START INTRADERMA PRN; -LIDOCAINE 1% 20 ML VIAL (10MG/ML) FOR IV START INTRADERMA PRN; -MIDAZOLAM (PF) 2 MG/2 ML VIAL IV PRN; +ONDANSETRON 4 MG/2 ML VIAL IVP ONE
[2019-05-14] MEDS: LACTATED RINGERS 1,000 ML IV SCH ×2 (07:35→23:14)
[2019-05-14] MEDS ORDERED: ACETAMINOPHEN IV (For NPO) 1,000 MG/100 ML VIAL ONE (08:06)
[2019-05-14] MEDS ORDERED: GLYCOPYRROLATE 0.2 MG/ML 2 ML VIAL ONE (08:06)
[2019-05-14] MEDS ORDERED: HYDROmorphone (PF) 1 MG/ML ONE (08:06)
[2019-05-14] MEDS ORDERED: DEXAMETHASONE SOD PHOS (MDV) 100 MG/10 ML VIAL ONE (08:06)
[2019-05-14] MEDS ORDERED: fentaNYL (PF) 50 MCG/ML 2 ML AMP ONE (08:06)
[2019-05-14] MEDS ORDERED: PROPOFOL 10 MG/ML 20 ML VIAL IV ONE (08:06)
[2019-05-14] MEDS ORDERED: KETAMINE 10 MG/ML 20 ML VIAL ONE (08:06)
[2019-05-14] MEDS ORDERED: MIDAZOLAM 2 MG/2 ML VIAL ONE (08:06)
[2019-05-14] MEDS ORDERED: SUCCINYLCHOLINE CHLORIDE 100 MG/5 ML SYR IV ONE (08:06)
[2019-05-14] MEDS ORDERED: ROCURONIUM BROMIDE 10 MG/ML 5 ML VIAL IV ONE (08:06)
[2019-05-14] MEDS ORDERED: NEOSTIGMINE 1 MG/ML 10 ML VIAL ONE (08:06)
[2019-05-14] MEDS ORDERED: LIDOCAINE 1% INJ 10MG/ML (20 ML MDV) ONE (08:06)
[2019-05-14] MEDS ORDERED: GELATIN SPONGE,ABSORB (LARGE) 1 EACH SPONGE TOPICAL ONE (08:10)
[2019-05-14] MEDS ORDERED: LIDOCAINE 0.5%-EPI 1:200,000 50 ML VIAL SQ ONE (08:10)
[2019-05-14] MEDS ORDERED: THROMBIN (BOVINE) 5,000 UNIT VIAL TOPICAL ONE (08:10)
--- NOTE | 2019-05-14 09:17 | XR ---
EXAMINATION TYPE: XR cervical spine 1V DATE OF EXAM: 05/14/2019 COMPARISON: NONE HISTORY: Single intraoperative image was performed localization TECHNIQUE: crosstable lateral view of the cervical spine FINDINGS: Needle placement overlies the C6 vertebral body. Patient is intubated. Prevertebral soft ti ssue swelling is mild. Cervical spine alignment is maintained. IMPRESSION: Localization of the C6 vertebral body.
[2019-05-14] MEDS ORDERED: LACTATED RINGERS 1,000 ML IV ONE (10:10)
[2019-05-14] MEDS: HYDROmorphone 0.5 MG/0.5 ML SYRINGE IVP PRN ×2 (10:15→10:20)
[2019-05-14] MEDS ORDERED: MAGNESIUM HYDROXIDE 2,400 MG/10 ML CUP PO PRN (10:32)
[2019-05-14] MEDS ORDERED: MENTHOL (NICE) LOZENGE MUCOUS MEM PRN (10:32)
[2019-05-14] MEDS ORDERED: HYDROmorphone 0.5 MG/0.5 ML SYRINGE IVP PRN (10:32)
[2019-05-14] MEDS ORDERED: ACETAMINOPHEN TAB 325 MG TAB PO PRN (10:34)
[2019-05-14] MEDS ORDERED: ONDANSETRON 4 MG/2 ML VIAL IVP PRN (10:34)
--- NOTE | 2019-05-14 10:46 | P.OP ---
Date of Procedure: 05/14/19 Preoperative Diagnosis: Cervical myelopathy, upper and lower extremity weakness, cervical myelomalacia, severe cervical stenosis C5 to C6, disc herniation C5 6 C6 7 Postoperative Diagnosis: Cervical myelopathy, upper and lower extremity weakness, cervical myelomalacia, severe cervical stenosis C5 to C6, disc herniation C5 6 C6 7 Anesthesia: GETA Pathology: none sent Condition: stable Disposition: PACU Description of Procedure: BRIEF OPERATIVE NOTE Preoperative Diagnosis:Cervical myelopathy, upper and lower extremity weakness, cervical myelomalacia, severe cervical stenosis C5 to C6, disc herniation C5 6 C6 7 Postoperative Diagnosis:Cervical myelopathy, upper and lower extremity weakness, cervical myelomalacia, severe cervical stenosis C5 to C6, disc herniation C5 6 C6 7 Procedure: Anterior cervical decompression with discectomy and fusion C5 6 C6 7 Anterior cervical corpectomy of C6 for decompression Harvesting of autogenous bone graft from the corpectomy of C6 for bone grafting Placement of interbody graft from C5 to C7 Application of anterior cervical plate from C5 to C7 Surgeon: Dr. Whitt Analysis Specialist: Will Dos Santos is present throughout the entire the case persistence during positioning, dissection, exposure, visualization, and all crucial elements of the case as well as closure. Anesthesia: General anesthesia Estimated blood loss: Approximately 100 mL Complications: None apparent Components implanted: K2M Garrard anterior cervical plate system with peek interbody strut cage measuring 25 mm filled with local autogenous bone graft Disposition: To recovery room in good stable condition. OPERATIVE INDICATIONS The patient has had long-standing issues in their neck and upper extremities. He's been explained in worsening of his symptoms with weakness in his left upper extremity and lower extremity. He's been having more difficulty with his coordination in his extremities and has his grandson number of falls. He has been having worsening of his symptoms by conservative treatment. He was found to have severe cervical stenosis at C5 to C7 with evidence of cervical myel opathy and myelomalacia. We discussed this with the patient at length and discussed the dysfunction of his spinal cord in relation to his pain and his symptoms. The patient has been through conservative treatment. He's been having worsening and we felt that the best course was for him would be to pursue decompression of his spinal cord with stabilization of the cervical spine. We discussed various treatment options including surgery, and the patient wishes to proceed with surgery We discussed the risk, patient's alternatives and benefits of surgery including but not limited to, risk of bleeding risk of infection, risk of need for further surgery, risk of decreased, loss of motion, muscle function, malunion nonunion, hardware failure, nerve damage, paralysis, heart attack, and . I also discussed the patient the fact that there is currently a pandemic of COVID 19, and that I have been asymptomatic as has been the staff in the operating room. Despite this we discussed that there is no way to completely guarantee that the patient could be free of exposure and any setting let alone the hospital setting itself. I felt that his surgery was essential in that his spinal cord dysfunction put him at risk for further neurologic decline and that prolonged delay of his surgery could increase his risk as well. He understood these issues and chose to proceed with surgical intervention at this point. OPERATIVE SUMMARY After discussing all the risks, patient alternatives and benefits at length, the patient elected to proceed with surgical intervention, signed informed consent, and presented for their procedure. The patient was seen and examined in the preoperative holding area and the surgical site was marked. The patient was given antibiotics and brought to the operating room. The patient was positioned on the operating room table in a supine position being careful to pad any bony prominences and pressure points. The patient was sedated and intubated by anesthesia in standard fashion. Once the airway and C- spine were stabilized the patient's arms were padded and tucked at her side, with her shoulders gently taped. The head was placed in a donut pad with the n israel in good neutral alignment and position. We were careful to maintain the patient's cervical spine and good neutral alignment and position throughout. The patient was prepped and draped in a normal standard fashion. An appropriate timeout and keystone protocol performed. We were able to proceed with the surgery. The local wound area was infiltrated with local anesthetic. An incision was made transversely approximately 2-1/2 cm over the appropriate levels of C6. Dissection was taken down subcutaneously to the level of the platysma which was split in line with its fibers. Dissection was taken with a carotid approach, with the trachea and esophagus medial and the carotid sheath laterally. We dissected down to the anterior surface of the vertebral bodies. Intraoperative x-ray was taken which showed a marker at the appropriate level with a needle at C6 body.. With the appropriate level positively confirmed, we were able to proceed with discectomy at the appropriate levels starting at C6 7 and in moving the C5 6. All of the operative levels were exposed appropriately. The patient had all their twitches back, and there was no evidence of recurrent laryngeal issue. The wound was copiously irrigated and suctioned dry as had been done periodically throughout the case. At the appropriate level/levels, starting at C6 7 and the moving his C5 6 I established an annulotomy with an 11 blade scalpel. A discectomy was performed with a combination of pituitary rongeurs, curettes, a high-speed bur, and Kerrison rongeurs. The posterior longitudinal ligament was taken down as were any posterior osteophytes. This gave good central and bilateral foraminal decompression at the level of the disks themselves. There is no evidence of any dural tear or leak. The endplates were prepared with a high-speed bur. The MRI showed significant stenosis behind the vertebral body of C6. I proceeded with the corpectomy at C6. This was done with comminution of rongeurs Kerrisons curettes and a high- speed bur. I was able to save the cancellus bone as autogenous bone graft for use later in the case as autogenous bone graft within the strut cage. There was significant thickening of the posterior longitudinal ligament and this was taken down as well. This gave excellent central decompression along the spinal cord from C5 to C7. I prepare the endplates further. There is no evidence of any dural tear or leak. There is some mild oozing from the bony bleeding which was controlled. With the endplates in good parallel position, I was able to size for the appropriate size interbody graft. I used caliper to establish appropriate size. I was able to measure to approximately 25 mm. The peek cage was trialed with gentle in-line traction from anesthesia on the cervical spine. Had excellent fill and positioning. I removed the cage trial and then filled the cage with local autogenous bone graft appropriately. The wound was irrigated and suctioned dry the graft was prepared and malleted into position with gentle in-line cervical traction held by anesthesia. It had excellent alignment and position with the anterior surface flush with the anterior surface of the vertebral bodies. This was done from C5 to 7. With the grafts intact, I was able to measure and contour and appropriate sized plate. The plate was positioned at the midline over the appropriate levels from C5 to 7. Screw holes were established with a hand drill and drill guide. Screws were placed in good alignment and position with excellent bony purchase. They were seated under the locking device. The construct was checked and found to be stable. Intraoperative x-ray was taken which showed good alignment and position of the implants at the appropriate levels. There was no evidence of a ny dural tear or leak. Good hemostasis was maintained. The wound was copiously irrigated and suctioned dry as had been done periodically throughout the case. The platysma was closed with absorbable suture. The subcutaneous tissue was closed. The subcuticular tissue was closed with absorbable suture. The wound was cleaned and dried and dressed appropriately. A soft cervical collar was placed appropriately. The patient was woken up by anesthesia, extubated, transferred back gently to their hospital bed and brought to the recovery room in good stable condition. The patient will be admitted to the hospital for appropriate postoperative care, medical management and monitoring. We will continue to follow them closely about the postoperative course.
--- NOTE | 2019-05-14 11:53 | XR ---
Cervical spine HISTORY: Status post anterior cervical fusion and discectomy Single lateral view the cervical spine correlated to prior exam and same dated earlier time Patient is status post anterior cervical fusion and discectomy at C5-C7. There is anatomic alignment. Strut is suspected along the region of C5-6 through C6-7. Endotracheal tube is noted incidentally. T here are overlying leads. IMPRESSION: Orthopedic follow-up.
[2019-05-14] MEDS: HYDROcodone/APAP 5-325MG 1 EACH TAB PO PRN ×2 (12:33→19:48)
[2019-05-14] MEDS: ALBUTEROL NEBULIZED 2.5 MG/3 ML INHALATION PRN ×2 (15:10→23:52)
[2019-05-14] MEDS: PREGABALIN 100 MG CAP PO SCH ×2 (17:33→19:47)
[2019-05-14] MEDS: SODIUM CHLORIDE 0.9% 1,000 ML IV SCH ×2 (19:46→23:13)
[2019-05-15 07:59] VITALS: BP 132/90; RESP 19; TEMP 98.6
[2019-05-15] MEDS: ALBUTEROL NEBULIZED 2.5 MG/3 ML INHALATION PRN (08:03)
[2019-05-15 08:16] VITALS: PULSE 94
[2019-05-15] MEDS: HYDROcodone/APAP 5-325MG 1 EACH TAB PO PRN (08:19)
--- NOTE | 2019-05-15 08:51 | P.DS ---
Providers Date of admission: 05/14/2019 Attending physician: Yariel Whitt Primary care physician: Corby Alonso [facility] [address] Course: The patient presented on the day of admission as per their operative note. He has cervical myelopathy with upper and lower extremity weakness and myelomalacia due to his severe stenosis at C5 6 and 7. He underwent anterior cervical decompression with discectomy and corpectomy of C5 to 7 yesterday as per his operative note. He feels his left upper extremity has had some improvement already in some of the function in his hand and fingers. He still having difficulty with his balance and his gait. His pain has been controlled his is having some soreness at the base of his neck. He has been able to tolerate his oral diet. Physical Exam The incision site is clean dry and intact. There is no erythema no drainage. There is no purulence no evidence of infection. His neck is soft and supple. There is no purulence. The drain had very scant drainage and it was able to remove the drain at bedside today. There is no active drainage. Abdomen soft and nontender. Chest has good excursion with deep inspiration and expiration. The patient has active and passive range of motion intact at the upper and lower extremities. There is no acute change in neurologic status. He has some limited motion in his left arm and hand and so is a footdrop on the left. Hospital Course Postoperative day #1 status post anterior cervical decompression with discectomy and corpectomy C5 to C7 for his severe cervical stenosis with cervical myelopathy and myelomalacia and weakness. We had have the patient admitted to the hospital postoperatively to monitor his drainage from his neck with the corpectomy. His drainage is doing very well and has essentially ceased. There is no significant swelling I think that the surgical site is stable. He should continue to wear his hard cervical collar when he is up. The patient has been making good progress postoperatively. They have completed the prophylactic antibiotics without any signs or symptoms of infection. The patient has been able to advance their diet, and is tolerating diet adequately. The pain was initially controlled with IV medications and is now controlled a ppropriately with oral medications. The patient has been able to increase their mobilization. The patient has progressed appropriately. I think they are in good stable condition for discharge today. They will be sent home with appropriate prescriptions. I answered their questions to the best of my ability in a language that they can understand and they are agreeable with the plan. They will follow up as directed In approximately 2 weeks or sooner if having problems. Patient Condition at Discharge: Fair Plan - Discharge Summary Discharge Rx Participant: No New Discharge Prescriptions: New HYDROcodone/APAP 5-325MG [[place] 5] 1 - 2 each PO Q6HR PRN #24 tab PRN Reason: Pain No Action Albuterol Sulfate [Proair Hfa] 2 puff INHALATION RT-Q4H PRN PRN Reason: Shortness Of Breath Ibuprofen [Motrin] 600 mg PO Q8HR PRN #20 tab PRN Reason: Pain Pregabalin [Lyrica] 200 mg PO TID Discharge Medication List Albuterol Sulfate [Proair Hfa] 2 puff INHALATION RT-Q4H PRN 07/28/15 [History] Ibuprofen [Motrin] 600 mg PO Q8HR PRN #20 tab 02/27/19 [Rx] Pregabalin [Lyrica] 200 mg PO TID 05/12/19 [History] HYDROcodone/APAP 5-325MG [[place] 5] 1 - 2 each PO Q6HR PRN #24 tab 05/15/19 [Rx] Follow up Appointment(s)/Referral(s): Yariel Whitt DO [Doctor of Osteopathic Medicine] - 2 Weeks Activity/Diet/Wound Care/Special Instructions: Keep site clean. May shower with waterproof Tegaderm intact. Do not soak in a tub. After 72 hours postoperatively, patient May remove dressing and then may shower with area uncovered. Leave Steri-Strips intact and allow them to fray off on their own. May ambulate as tolerated. Ice to the area as needed for pain Avoid heavy or rigorous activity. No repetitive bending twisting or lifting. No overhead work. Discharge Disposition: HOME SELF-CARE
[2019-05-15] MEDS: PREGABALIN 100 MG CAP PO SCH (08:56)
[2019-05-15] MEDS ORDERED: SENNOSIDES-DOCUSATE SODIUM 1 EACH TAB PO SCH (09:00)
== END 2019-05-15 10:51 | disposition home or self-care (01) | DRG 472 ==
LOC: OR 06:53 → 4SSUR 10:34 → OR 05-15 09:36
PROVIDERS: ADMIT Orthopaedic Surgery Orthopaedic Surgery of the Spine; ATTEND Orthopaedic Surgery Orthopaedic Surgery of the Spine
PROC: 0RG20A0 Fusion of 2 or more Cervical Vertebral Joints with Interbody Fusion Device, Anterior Approach, Anterior Column, Open Approach (ICD-10-PCS; principal; 2019-05-14 08:00)
PROC: 0PB30ZZ Excision of Cervical Vertebra, Open Approach (ICD-10-PCS; 2019-05-14 08:00)
DX: M48.02 Spinal stenosis, cervical region (principal); M50.022 Cervical disc disorder at C5-C6 level with myelopathy; G95.89 Other specified diseases of spinal cord; J45.909 Unspecified asthma, uncomplicated; M21.372 Foot drop, left foot; K21.9 Gastro-esophageal reflux disease without esophagitis; Z79.899 Other long term (current) drug therapy; Z88.0 Allergy status to penicillin
CPT/HCPCS: 72020; 86850; 86900; 86901; 94640

== ENCOUNTER 2019-08-07 15:24 | Emergency (ER) | payer BC ==
[2019-08-07 15:37] VITALS: BP 131/89; PULSE 94; RESP 16; TEMP 99.1
--- NOTE | 2019-08-07 16:04 | ED ---
Lower Extremity Injury HPI - General Chief Complaint: Extremity Injury, Lower Stated Complaint: fall Time Seen by Provider: 08/07/19 15:44 Source: patient Mode of arrival: wheelchair Limitations: no limitations - History of Present Illness Initial Comments: Patient is a 57-year-old male presenting to emergency Department with a chief complaint of left knee and foot pain. Patient reports he typically uses a cane to ambulate. States she has foot drop syndrome and is undergoing physical therapy. States she was ambulating with a cane today, when he felt his left knee buckled and fell forward causing an injury to left knee. States she also developed an inversion injury to her left ankle. Patient states this occurred a few hours prior to arrival. Denies any erythematous or ecchymotic changes. States the pain is dull in nature and is about a 5 or 6/10. Denies taking any medication to alleviate the symptoms. - Related Data Home Medications Medication Instructions Recorded Confirmed Albuterol Sulfate [Proair Hfa] 2 puff INHALATION RT-Q4H PRN 07/28/15 05/12/19 Pregabalin [Lyrica] 200 mg PO TID 05/12/19 05/12/19 Previous Rx's Medication Instructions Recorded Ibuprofen [Motrin] 600 mg PO Q8HR PRN #20 tab 02/27/19 HYDROcodone/APAP 5-325MG [[place] 5] 1 - 2 each PO Q6HR PRN #24 tab 05/15/19 Allergies Allergy/AdvReac Type Severity Reaction Status Date / Time peanut Allergy throat Verified 08/07/19 15:36 closes tree nut Allergy throat Verified 08/07/19 15:36 closes Penicillins AdvReac Nausea & Verified 08/07/19 15:36 Vomiting & Diarrhea Review of Systems ROS Statement: Those systems with pertinent positive or pertinent negative responses have been documented in the HPI. ROS Other: All systems not noted in ROS Statement are negative. Past Medical History Past Medical History: Asthma Additional Past Medical History / Comment(s): NECK PAIN WITH NUMNESS IN FINGERS OF RIGHT HAND. FOOT DROP ON LEFT (TAKING LYRICA & HAS FOOT BRACE). Diverticulitis (HOSPITALIZED IN 2019). . History of Any Multi-Drug Resistant Organisms: None Reported Past Surgical History: No Surgical Hx Reported Additional Past Surgical History / Comment(s): colonoscopy, hemorrhoidectomy. CYST ON ABD. Past Anesthesia/Blood Transfusion Reactions: No Reported Reaction Past Psychological History: No Psychological Hx Reported Smoking Status: Never smoker Past Alcohol Use History: Occasional Past Drug Use History: None Reported - Past Family History Mother Family Medical History: Cancer Additional Family Medical History / Comment(s): COLON Father Family Medical History: Cancer Additional Family Medical History / Comment(s): BRAIN General Exam Limitations: no limitations General appearance: alert, in no apparent distress Head exam: Present: atraumatic, normocephalic, normal inspection Eye exam: Present: normal appearance, PERRL, EOMI Pupils: Present: normal accommodation ENT exam: Present: normal exam, normal oropharynx, mucous membranes moist Neck exam: Present: normal inspection, full ROM Respiratory exam: Present: normal lung sounds bilaterally. Absent: respiratory distress, wheezes, rales Cardiovascular Exam: Present: regular rate, normal rhythm, normal heart sounds Extremities exam: Present: normal inspection (No signs of ecchymosis or erythema or trauma noted to left knee or ankle.), full ROM, tenderness (Tenderness along the lateral aspect of the left ankle and knee.), normal capillary refill, other (+2 dorsalis pedis and posterior tibialis bilaterally.) Back exam: Present: normal inspection, full ROM Neurological exam: Present: alert, oriented X3 Psychiatric exam: Present: normal affect, normal mood Skin exam: Present: warm, dry, intact, normal color Course Vital Signs 08/07/19 15:35 Temperature 99.1 F Pulse Rate 94 Respiratory 16 Rate Blood Pressure 131/89 O2 Sat by Pulse 98 Oximetry Medical Decision Making - Medical Decision Making Patient is a 54-year-old male presenting to emergency Department with a chief complaint of left knee and ankle pain. Patient relates with a walker when his knee buckled. Negative anterior drawer test. No signs of significant trauma to the ankle or knee. X-rays of the left knee is unremarkable. X-ray of the left ankle reveals a density possibly sequela to a remote injury. Return parameters were thoroughly discussed the patient is understanding and agreeable. Patient advised to rest, ice, elevate. Randy wrap was applied. Advised to follow-up with search engine optimization specialist. Return parameters were thoroughly discussed patient was understanding and agreeable. Case discussed with physician. Disposition Clinical Impression: Fall, Left knee pain, Left ankle pain Disposition: HOME SELF-CARE Condition: Stable Instructions (If sedation given, give patient instructions): Ankle Sprain (ED), Knee Sprain (ED) Additional Instructions: Follow-up with search engine optimization specialist if symptoms not improved. Return to emergency department if symptoms worsen. Alternate between Tylenol and Motrin for pain control. Is patient prescribed a controlled substance at d/c from ED?: No Referrals: Corby Boone MD [Primary Care Provider] - 1-2 days Kevyn Peter PAC [PHYSICIAN [facility]] - 1-2 days Time of Disposition: 16:45
--- NOTE | 2019-08-07 16:23 | XR ---
EXAMINATION TYPE: XR knee complete 3 views LT, XR ankle complete 3 views LT DATE OF EXAM: 08/07/2019 COMPARISON: NONE HISTORY: 54-year-old male pain after fall. Unable to dorsiflex the foot. FINDINGS: Left knee: Extensor mechanism is intact. No significant knee joint effusion. No acute fracture, subluxation, dis location seen. Left ankle: Corticated ossific densities below the medial malleolus suggesting sequela of remote injury. Tiny fra gmented spur at the insertion. Ankle mortise appears congruent with preservation of the distal tibiof ibular overlap. Talar dome is intact. No acute fracture, subluxation, dislocation seen. IMPRESSION: 1. Left knee: No acute osseous abnormality. 2. Left ankle: Some corticated densities below the medial malleolus suggesting sequela of remote inju ry. No acute osseous abnormality seen.
== END 2019-08-07 17:04 | disposition home or self-care (01) ==
LOC: EC 15:24
DX: M25.562 Pain in left knee (principal); J45.909 Unspecified asthma, uncomplicated; Z79.890 Hormone replacement therapy; Z88.0 Allergy status to penicillin; Z91.010 Allergy to peanuts; Z91.018 Allergy to other foods; X58.XXXA Exposure to other specified factors, initial encounter
CPT/HCPCS: 99283

== ENCOUNTER 2019-10-16 19:12 | Emergency (ER) | payer BC, OTHER ==
[2019-10-16 19:20] VITALS: TEMP 98
--- NOTE | 2019-10-16 19:37 | ED ---
Fall HPI - General Chief Complaint: Fall Stated Complaint: fall Time Seen by Provider: 10/16/19 19:19 Source: patient, RN notes reviewed, old records reviewed - History of Present Illness Initial Comments: This is a 54 male to ED for persistent weakness, patient is a complex surgical history with spinal surgery that significant pressure on his cervical spine causing significant atrophy and weakness in his lower extremities he walks with a walker secondary to his atrophy and weakness currently going through rehab has multiple falls felt today his back and hit his head. No loss of consciousness not on blood thinners patient is complaining of increased neck pain concern for his prior surgery as well as some lumbar spine pain. Patient was unable to get up on his own after falling and hence presents here by EMS. 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 Fall Witnessed: yes, by family Place Fall Occurred: home Loss of Consciousness: none Prolonged Down Time?: no Symptoms Prior to Fall: none Location: neck, back Severity: moderate Severity scale (1-10): 3 Quality: burning Context: tripped/slipped Associated Symptoms: denies - Related Data Home Medications Medication Instructions Recorded Confirmed Albuterol Sulfate [Proair Hfa] 2 puff INHALATION RT-Q4H PRN 07/28/15 05/12/19 Pregabalin [Lyrica] 200 mg PO TID 05/12/19 05/12/19 Previous Rx's Medication Instructions Recorded Ibuprofen [Motrin] 600 mg PO Q8HR PRN #20 tab 02/27/19 HYDROcodone/APAP 5-325MG [Jasper 5] 1 - 2 each PO Q6HR PRN #24 tab 05/15/19 Allergies Allergy/AdvReac Type Severity Reaction Status Date / Time peanut Allergy throat Verified 08/07/19 15:36 closes tree nut Allergy throat Verified 08/07/19 15:36 closes Penicillins AdvReac Nausea & Verified 08/07/19 15:36 Vomiting & Diarrhea Review of Systems ROS Statement: Those systems with pertinent positive or pertinent negative responses have been documented in the HPI. ROS Other: All systems not noted in ROS Statement are negative. Past Medical History Past Medical History: Asthma Additional Past Medical History / Comment(s): c7 injury NECK PAIN WITH NUMNESS IN FINGERS OF left HAND. FOOT DROP ON LEFT (TAKING LYRICA & HAS FOOT BRACE). . History of Any Multi-Drug Resistant Organisms: None Reported Past Surgical History: No Surgical Hx Reported Additional Past Surgical History / Comment(s): colonoscopy, hemorrhoidectomy. CYST ON ABD. cervical spine repair Past Anesthesia/Blood Transfusion Reactions: No Reported Reaction Past Psychological History: No Psychological Hx Reported Past Alcohol Use History: Occasional Past Drug Use History: None Reported - Past Family History Mother Family Medical History: Cancer Additional Family Medical History / Comment(s): COLON Father Family Medical History: Cancer Additional Family Medical History / Comment(s): BRAIN General Exam Limitations: no limitations General appearance: alert, in no apparent distress Head exam: Present: atraumatic, normocephalic, normal inspection Eye exam: Present: normal appearance, PERRL, EOMI. Absent: scleral icterus, conjunctival injection, periorbital swelling ENT exam: Present: normal exam, mucous membranes moist Neck exam: Present: normal inspection. Absent: tenderness, meningismus, lymphadenopathy Respiratory exam: Present: normal lung sounds bilaterally. Absent: respiratory distress, wheezes, rales, rhonchi, stridor Cardiovascular Exam: Present: regular rate, normal rhythm, normal heart sounds. Absent: systolic murmur, diastolic murmur, rubs, gallop, clicks GI/Abdominal exam: Present: soft, normal bowel sounds. Absent: distended, tenderness, guarding, rebound, rigid Extremities exam: Present: normal inspection, full ROM, normal capillary refill. Absent: tenderness, pedal edema, joint swelling, calf tenderness Back exam: Present: normal inspection Neurological exam: Present: alert, oriented X3, CN II-XII intact Psychiatric exam: Present: normal affect, normal mood Skin exam: Present: warm, dry, intact, normal color. Absent: rash Course Vital Signs 10/16/19 10/16/19 19:13 21:17 Temperature 98 F Pulse Rate 82 80 Respiratory 18 17 Rate Blood Pressure 129/84 136/96 O2 Sat by Pulse 96 99 Oximetry - Reevaluation(s) Reevaluation #1: Medical records reviewed Patient pain control Spoke with Dr. Whitt cervical spine surgery not concerned for patient's symptoms today will follow-up as an outpatient basis Medical Decision Making - Medical Decision Making 54 male to the ED co weakness and falls - Radiology Data Radiology results: report reviewed (CT Lspine negative for acute disaese, Cspine negative for acute disease), image reviewed Disposition Clinical Impression: Fall, Weakness Narrative: Chronic Neurologic Deficits Disposition: HOME SELF-CARE Condition: Good Instructions (If sedation given, give patient instructions): Fall Prevention for Older Adults (ED) Is patient prescribed a controlled substance at d/c from ED?: No Referrals: Corby Boone MD [Primary Care Provider] - 1-2 days
--- NOTE | 2019-10-16 20:02 | CT ---
EXAMINATION TYPE: CT cervical spine wo con DATE OF EXAM: 10/16/2019 COMPARISON: None HISTORY: Neck pain after fall. CT DLP: 386.8 mGycm Automated exposure control for dose reduction was used. Images were obtained from the skull base to T1 vertebra with no contrast. Cervical vertebra have normal alignment. There is plate with screws fusing anteriorly the cervical sp ine from C5 to C7. The posterior elements are intact. There is bone graft at C6 vertebral body. There is no cervical paraspinal mass. I see no compression fracture. There is no definite sign of cervical spinal stenosis. Prevertebral soft tissues are intact. IMPRESSION: Previous surgery. No acute bony abnormality. No fracture.
--- NOTE | 2019-10-16 20:16 | CT ---
EXAMINATION TYPE: CT lumbar spine wo con DATE OF EXAM: 10/16/2019 COMPARISON: 05/19/2018 HISTORY: Low back pain after fall. CT DLP: 968.3 mGycm Automated exposure control for dose reduction was used. Multiple axial sections were obtained from the level of T12-S2 vertebra with no contrast. Lumbar vertebra have normal spacing and alignment. The posterior elements are intact. There is no com pression fracture. There is anterior bridging osteophyte at L1-2. There is no lumbar paraspinal mass. There is some atrophy of the left psoas muscle compared to the right. Sacroiliac joints appear intac t. Urinary bladder is large. There are sigmoid diverticula. There is L4-5 posterior disc herniation i n the midline and towards the right side. There is no spinal stenosis. I see no focal bone destructio n. IMPRESSION: Posterior central and right-sided mild L4-5 disc herniation. No spinal stenosis. No fracture. Dilated urinary bladder could relate to bladder outlet obstruction. Left psoas muscle atrophy. Sigmoi d diverticulosis. Psoas muscle abnormality is new compared to old CT scan.
[2019-10-16 21:18] VITALS: BP 136/96; PULSE 80; RESP 17
== END 2019-10-16 21:16 | disposition home or self-care (01) ==
LOC: EC 19:12
DX: R53.1 Weakness (principal); R29.818 Other symptoms and signs involving the nervous system; R29.6 Repeated falls; J45.909 Unspecified asthma, uncomplicated; Z79.51 Long term (current) use of inhaled steroids; Z79.899 Other long term (current) drug therapy; Z91.010 Allergy to peanuts; Z88.0 Allergy status to penicillin; Z99.89 Dependence on other enabling machines and devices; W01.198A Fall on same level from slipping, tripping and stumbling with subsequent striking against other object, initial encounter; Y93.89 Activity, other specified; Y92.009 Unspecified place in unspecified non-institutional (private) residence as the place of occurrence of the external cause
CPT/HCPCS: 72125; 72131; 99284

== ENCOUNTER → 2020-01-01 | Outpatient (CLI) | payer OTHER ==
--- NOTE | 2020-01-01 11:11 | MR ---
EXAMINATION TYPE: MR lumbar spine wo con DATE OF EXAM: 01/01/2020 COMPARISON: CT scan 10/16/2019 HISTORY: Low Back Pain TECHNIQUE: T1 and T2 axial and sagittal images of the lumbar spine are submitted. FINDINGS: There is no abnormal signal seen within the visualized spinal cord or paraspinal soft tissu es. At L1-2 there is no disc herniation or canal stenosis. No foraminal encroachment. Mild degenerative d isc disease and facet arthropathy. At L2-3 there is facet arthropathy with no evidence of disc herniation or stenosis no foraminal encro achment At L3-4 there is advanced facet arthropathy with ligamentum flavum hypertrophy. Broad-based disc bulg ing and mild bilateral foraminal encroachment. Vertebral body hemangioma of L3. At L4-5 there is diminutive spinal canal with advanced facet arthropathy and ligamentum flavum hypert rophy. Very mild central broad-based disc bulging. Borderline canal stenosis. Mild bilateral foramina l encroachment. At L5-S1 there is facet arthropathy but no disc herniation, canal stenosis or foraminal encroachment. IMPRESSION: 1. Multilevel mild degenerative disc disease. Disc bulging L3-4 and L4-5 seen in association with adv anced facet arthropathy and ligamentum flavum hypertrophy. Mild bilateral foraminal encroachment at b oth levels with borderline canal stenosis L4-L5. Diminutive spinal canal contributes.
--- NOTE | 2020-01-01 11:17 | MR ---
EXAMINATION TYPE: MR cervical spine wo/w con DATE OF EXAM: 01/01/2020 COMPARISON: 04/16/2019, CT scan 22,020 HISTORY: Neck Pain TECHNIQUE: Multiplanar, multisequence images of the cervical spine were acquired utilizing 7 mL intravenous Gada vist gadolinium contrast. Diffusion weighted imaging was performed. C2-C3: No evidence for degenerative disc disease. No disc bulge/herniation or protrusion. No Canal stenosis. Foramina are patent bilaterally. C3-C4: No evidence for degenerative disc disease. No disc bulge/herniation or protrusion. No Canal stenosis. Foramina are patent bilaterally. C4-C5: Broad-based central disc herniation abutting the anterior margin the spinal cord. Neural santiago rodolfo patent. C5-C6: No evidence for degenerative disc disease. No disc bulge/herniation or protrusion. No Canal stenosis. Foramina are patent bilaterally. Surgical changes. C6-C7: No evidence for degenerative disc disease. No disc bulge/herniation or protrusion. No Canal stenosis. Foramina are patent bilaterally. Postsurgical changes C7-T1: No evidence for degenerative disc disease. No disc bulge/herniation or protrusion. No Canal stenosis. Foramina are patent bilaterally. Postsurgical changes. There is normal alignment. Cervical spinal cord is of normal signal. Cerebellar tonsils low-lying in position extending below the level the foramen magnum. Changes of chronic sphenoid sinusitis noted. IMPRESSION: 1. There is a broad-based central disc herniation abutting the anterior margin of the spinal cord at C4-C5. 2. Postsurgical changes C5-C7 with no evidence of canal stenosis or disc herniation at these levels. 3. The cerebellar tonsils are low-lying in position correlate for Chiari malformation. No tonsillar b eaking.
== END | disposition home or self-care (01) ==
LOC: RADMRIMAIN 09:51
PROVIDERS: ATTEND Orthopaedic Surgery Orthopaedic Surgery of the Spine
DX: M48.061 Spinal stenosis, lumbar region without neurogenic claudication (principal); M51.36 Other intervertebral disc degeneration, lumbar region; M47.816 Spondylosis without myelopathy or radiculopathy, lumbar region; M51.26 Other intervertebral disc displacement, lumbar region; M50.221 Other cervical disc displacement at C4-C5 level; Z98.890 Other specified postprocedural states; R26.89 Other abnormalities of gait and mobility; R29.2 Abnormal reflex; M48.02 Spinal stenosis, cervical region; M47.12 Other spondylosis with myelopathy, cervical region; M50.122 Cervical disc disorder at C5-C6 level with radiculopathy; Z48.89 Encounter for other specified surgical aftercare; S16.1XXD Strain of muscle, fascia and tendon at neck level, subsequent encounter; M25.462 Effusion, left knee; M17.12 Unilateral primary osteoarthritis, left knee
CPT/HCPCS: 72148; 72156; A9585

== ENCOUNTER → 2020-02-13 | Outpatient (CLI) | payer OTHER ==
--- NOTE | 2020-02-13 23:51 | MR ---
EXAMINATION TYPE: MR thoracic spine wo con DATE OF EXAM: 02/13/2020 COMPARISON: None HISTORY: Mid back pain, bilateral leg weakness. Multiplanar multiecho imaging of the thoracic spine was performed with no contrast. There is metal artifact from previous fusion surgery in the lower cervical spine. Thoracic vertebra h ave fairly normal spacing and alignment. There is no compression fracture there is no thoracic spinal stenosis. Thoracic spinal cord has fairly normal signal pattern. There is no edema. There is no thor acic paraspinal mass. I see no bony destructive process. Cervical vertebra have normal alignment. The re are a few scattered small foci of relative increased signal on the T1 and T2 images in the vertebr al bodies probably due to some fatty marrow replacement. IMPRESSION: Negative MR scan thoracic spine. No fracture. No disc herniation or spinal stenosis.
--- NOTE | 2020-02-14 00:25 | MR ---
EXAMINATION TYPE: MR brain wo/w con DATE OF EXAM: 02/13/2020 COMPARISON: None HISTORY: Muscle weakness, abnormal gait CONTRAST: Standard multiplanar, multisequence MRI departmental protocol utilizing 7 mL intravenous Gadavist silvino olinium contrast. Ventricles have fairly normal size. There is no mass effect nor midline shift. There is no sign of in tracranial hemorrhage. Brainstem is intact. Cerebellum is intact. There is mild mucosal thickening in the ethmoid sinuses. Sella turcica appears normal. Corpus callosum appears fairly normal. Diffusion images show no evidence of cortical infarct. Contrast images show normal enhancement of the venous sinuses. There is arterial flow demonstrated in the anterior middle and posterior cerebral arteries and both internal carotid arteries. There is art erial flow in the vertebrobasilar artery system. There is no pathologic enhancement. There is no evid ence of cerebral edema. IMPRESSION: MR scan of the brain is fairly normal. I do not see a cause for gait abnormality.
== END | disposition home or self-care (01) ==
LOC: RADMRIMAIN 17:01
PROVIDERS: ATTEND Family Medicine
DX: M62.81 Muscle weakness (generalized) (principal); M54.6 Pain in thoracic spine
CPT/HCPCS: 70553; 72146; A9585

== ENCOUNTER 2020-03-22 07:55 | Day surgery (SDC) | payer OTHER ==
[2020-03-22 08:42] VITALS: RESP 16; TEMP 98.3
[2020-03-22] MEDS ORDERED: ALPRAZolam 0.5 MG TAB PO STA (08:55)
[2020-03-22 13:13] LABS: Glucose,CSF 69 mg/dL (40-70); Total Protein,CSF 49 mg/dL (12-60)
--- NOTE | 2020-03-22 13:50 | FL ---
EXAMINATION TYPE: FL guided lumbar puncture LP DATE OF EXAM: 03/22/2020 COMPARISON: NONE HISTORY: Motor neuron disease TECHNIQUE: Fluoroscopy.43 sec fl time FINDINGS: Informed consent was obtained and all the patient's questions were answered. The L3-4 level was localized fluoroscopically. Spinal needle was introduced into the thecal sac and 4 test tubes of 4 cc of CSF was obtained for a total of 16 cc. Opening pressure was 10 mmHg. The patient tolerated t he procedure well and left the department in stable condition. IMPRESSION: As Above.
[2020-03-22 14:14] LABS: Appearance,CSF Clear
[2020-03-22 14:15] LABS: Appearance,CSF Clear; CSF Tube Number 1; CSF Tube Number 3; CSF Tube Volume 3.8; Nucleated Cells, CSF 0 u/L (0-5); Red Blood Cell,CSF 0 u/L (0-10)
[2020-03-22 14:42] VITALS: BP 104/71; PULSE 76
[2020-03-23 09:54] LABS: VDRL, Qualitative CSF Nonreactive (Nonreactive)
== END 2020-03-22 13:50 | disposition home or self-care (01) ==
LOC: RADPROMAIN 07:55
PROVIDERS: ATTEND Psychiatry & Neurology Neurology
DX: G12.20 Motor neuron disease, unspecified (principal); J45.909 Unspecified asthma, uncomplicated; Z91.81 History of falling; Z98.890 Other specified postprocedural states; Z79.899 Other long term (current) drug therapy; Z82.61 Family history of arthritis; Z80.9 Family history of malignant neoplasm, unspecified
CPT/HCPCS: 62328; 82945; 83916; 84157; 86592; 87070; 87205; 89050

== ENCOUNTER 2020-07-31 08:34 | Emergency (ER) | payer OTHER ==
[2020-07-31 08:40] VITALS: RESP 18; TEMP 98.7
[2020-07-31] MEDS ORDERED: SODIUM CHLORIDE 0.9% 500 ML 500 ML IV STA (08:48)
--- NOTE | 2020-07-31 08:52 | ED ---
General Adult HPI - General Chief complaint: Abdominal Pain Stated complaint: abd pain Time Seen by Provider: 07/31/20 08:35 Source: patient, EMS, RN notes reviewed, old records reviewed Mode of arrival: EMS Limitations: physical limitation - History of Present Illness Initial comments: This is a 55-year-old male who presents emergency Department complaining of abdominal pain. Patient states started with some slight distention a couple days ago and decreased bowel movements but last 2 days he was drinking fluids only and he still has not been able to have a good bowel movement. Patient states this morning he woke up and he had diffuse lower abdominal pain. Patient states it's similar to the pain he had when he had diverticulitis 2 years ago. Patient states he has recently in the last 2 years been diagnosed with ALS. Patient states he has no movement of his legs but has some of both arms and hands but very weakened. Patient denies any chest pain difficulty breathing shortness of breath. Patient denies any nausea vomiting. Patient isn't diarrhea. Patient denies any fever chills or cough. - Related Data Home Medications Medication Instructions Recorded Confirmed Albuterol Sulfate [Proair Hfa] 2 puff INHALATION RT-Q4H PRN 07/28/15 03/10/20 Baclofen 10 mg PO 5XD PRN 03/10/20 03/10/20 Allergies Allergy/AdvReac Type Severity Reaction Status Date / Time peanut Allergy throat Verified 07/31/20 08:40 closes tree nut Allergy throat Verified 07/31/20 08:40 closes Penicillins AdvReac Nausea & Verified 07/31/20 08:40 Vomiting & Diarrhea Review of Systems ROS Statement: Those systems with pertinent positive or pertinent negative responses have been documented in the HPI. ROS Other: All systems not noted in ROS Statement are negative. Past Medical History Past Medical History: Asthma Additional Past Medical History / Comment(s): c7 injury NECK PAIN WITH NUMNESS IN FINGERS OF left HAND. 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 CYST removal just nelow waist. cervical spine repair, coming in for lumbar puncture Past Anesthesia/Blood Transfusion Reactions: No Reported Reaction Past Psychological History: Depression Smoking Status: Never smoker Past Alcohol Use History: None Reported Past Drug Use History: None Reported - Past Family History Mother Family Medical History: Cancer Additional Family Medical History / Comment(s): COLON Father Family Medical History: Cancer Additional Family Medical History / Comment(s): BRAIN General Exam - General Exam Comments Initial Comments: GENERAL: Patient is well-developed and well-nourished. Patient is nontoxic and well- hydrated and is in mild distress. ENT: Neck is soft and supple. No significant lymphadenopathy is noted. Oropharynx is clear. Moist mucous membranes. Neck has full range of motion without eliciting any pain. EYES: The sclera were anicteric and conjunctiva were pink and moist. Extraocular movements were intact and pupils were equal round and reactive to light. Eyelids were unremarkable. PULMONARY: Unlabored respirations. Good breath sounds bilaterally. No audible rales rhonchi or wheezing was noted. CARDIOVASCULAR: There is a regular rate and rhythm without any murmurs gallops or rubs. ABDOMEN: Mild lower abdominal tenderness SKIN: Skin is clear with no lesions or rashes and otherwise unremarkable. NEUROLOGIC: Patient is alert and oriented x3. Cranial nerves II through XII are grossly intact. Motor and sensory are also intact. Normal speech, volume and content. Symmetrical smile. MUSCULOSKELETAL: Normal extremities with adequate strength and full range of motion. No lower extremity swelling or edema. No calf tenderness. LYMPHATICS: No significant lymphadenopathy is noted PSYCHIATRIC: Normal psychiatric evaluation. Limitations: physical limitation Course Vital Signs 07/31/20 07/31/20 08:36 10:16 Temperature 98.7 F Pulse Rate 88 89 Respiratory 18 18 Rate Blood Pressure 137/94 125/88 O2 Sat by Pulse 98 100 Oximetry Medical Decision Making - Medical Decision Making CT of the abdomen shows large amount of stool no inflammatory changes no acute abnormalities. Patient was offered an enema in the hospital he did not want to take when here he wanted to take some mag citrate home. - Lab Data Result diagrams: 07/31/20 08:52 07/31/20 08:52 Lab Results 07/31/20 07/31/20 07/31/20 Range/Units 08:52 08:52 08:52 WBC 4.4 (3.8-10.6) k/uL RBC 5.52 (4.30-5.90) m/uL Hgb 16.0 (13.0-17.5) gm/dL Hct 47.3 (39.0-53.0) % MCV 85.6 (80.0-100.0) fL MCH 29.0 (25.0-35.0) pg MCHC 33.9 (31.0-37.0) g/dL RDW 13.2 (11.5-15.5) % Plt Count 177 (150-450) k/uL MPV 7.5 Neutrophils % 54 % Lymphocytes % 26 % Monocytes % 8 % Eosinophils % 9 % Basophils % 1 % Neutrophils # 2.4 (1.3-7.7) k/uL Lymphocytes # 1.1 (1.0-4.8) k/uL Monocytes # 0.3 (0-1.0) k/uL Eosinophils # 0.4 (0-0.7) k/uL Basophils # 0.1 (0-0.2) k/uL Sodium 138 (137-145) mmol/L Potassium 4.3 (3.5-5.1) mmol/L Chloride 103 (98-107) mmol/L Carbon Dioxide 29 (22-30) mmol/L Anion Gap 6 mmol/L BUN 14 (9-20) mg/dL Creatinine 0.22 L (0.66-1.25) mg/dL Est GFR (CKD-EPI)AfAm >90 (>60 ml/min/1.73 sqM) Est GFR (CKD-EPI)NonAf >90 (>60 ml/min/1.73 sqM) Glucose 100 H (74-99) mg/dL Plasma Lactic Acid [place] 1.6 (0.7-2.0) mmol/L Calcium 9.4 (8.4-10.2) mg/dL Total Bilirubin 0.6 (0.2-1.3) mg/dL AST 28 (17-59) U/L ALT 28 (4-49) U/L Alkaline Phosphatase 67 (38-126) U/L Total Protein 6.3 (6.3-8.2) g/dL Albumin 4.2 (3.5-5.0) g/dL Amylase 50 (30-110) U/L Lipase 82 (23-300) U/L Disposition Clinical Impression: Constipation Disposition: HOME SELF-CARE Condition: Good Instructions (If sedation given, give patient instructions): High Fiber Diet (ED), Constipation (ED) Additional Instructions: Patient should take mag citrate at home Is patient prescribed a controlled substance at d/c from ED?: No Referrals: None,Stated [Primary Care Provider] - 1-2 days Time of Disposition: 10:42
[2020-07-31 09:00] LABS: Basophils # (A) 0.1 k/uL (0-0.2); Basophils % (A) 1 %; Eosinophils # (A) 0.4 k/uL (0-0.7); Eosinophils % (A) 9 %; HCT 47.3 % (39.0-53.0); Lymphocytes # (A) 1.1 k/uL (1.0-4.8); Lymphocytes % (A) 26 %; MCHC 33.9 g/dL (31.0-37.0); MCV 85.6 fL (80.0-100.0); Mean Platelet Volume 7.5; Monocytes # (A) 0.3 k/uL (0-1.0); Monocytes % (A) 8 %; Neutrophils # (A) 2.4 k/uL (1.3-7.7); Neutrophils % (A) 54 %; Platelet Count 177 k/uL (150-450); RBC 5.52 m/uL (4.30-5.90); RDW 13.2 % (11.5-15.5); WBC 4.4 k/uL (3.8-10.6)
[2020-07-31 09:24] LABS: ALT 28 U/L (4-49); AST 28 U/L (17-59); African American GFR (CKD) >90 (>60 ml/min/1.73 sqM); Albumin 4.2 g/dL (3.5-5.0); Alkaline Phosphatase 67 U/L (38-126); Amylase 50 U/L (30-110); Anion Gap 6 mmol/L; Blood Urea Nitrogen 14 mg/dL (9-20); Calcium 9.4 mg/dL (8.4-10.2); Carbon Dioxide 29 mmol/L (22-30); Chloride 103 mmol/L (98-107); Glucose 100 mg/dL (74-99); Lipase 82 U/L (23-300); Non-African American GFR(CKD) >90 (>60 ml/min/1.73 sqM); Potassium 4.3 mmol/L (3.5-5.1); Sodium 138 mmol/L (137-145); Total Bilirubin 0.6 mg/dL (0.2-1.3); Total Protein 6.3 g/dL (6.3-8.2)
--- NOTE | 2020-07-31 09:32 | CT ---
EXAMINATION TYPE: CT abdomen pelvis w con DATE OF EXAM: 07/31/2020 COMPARISON: 05/19/2018 HISTORY: Abdominal pain CT DLP: 1033.5 mGycm Automated exposure control for dose reduction was used. TECHNIQUE: Helical acquisition of images was performed from the lung bases through the pelvis. CONTRAST: Performed without Oral Contrast and with IV Contrast, patient injected with 100 mL of Isovue 300. FINDINGS: The lung bases are clear. The gallbladder is normal and there is no biliary ductal dilatation. There is no focal mass or organomegaly involving the liver, pancreas, spleen or adrenal glands. The kidneys excrete contrast promptly and symmetrically and there is no solid renal mass or hydroneph rosis. There is no retroperitoneal adenopathy or hemorrhage in the caliber of the abdominal aorta is normal. The bowel loops are normal in caliber. There is a large amount of fluid and stool in the rectum. The diverticulitis seen on the prior study has resolved in the interval. There is diverticulosis without CT evidence of acute diverticulitis. There is no free intraperitoneal air or fluid. There is no bowel obstruction. There is no pelvic mass or adenopathy. The osseous structures are intact. IMPRESSION: Large amount of stool and fluid within the rectum. There is no bowel obstruction or inflammation. The diverticulitis seen on the prior study is not present currently. There is no bowel obstruction or ac nba inflammatory changes within the abdomen.
[2020-07-31 10:19] VITALS: BP 125/88; PULSE 89
[2020-07-31] MEDS ORDERED: MAGNESIUM CITRATE 296 ML BOTTLE PO ONE (10:44)
== END 2020-07-31 11:19 | disposition home or self-care (01) ==
LOC: EC 08:34
DX: K59.00 Constipation, unspecified (principal); J45.909 Unspecified asthma, uncomplicated; Z88.0 Allergy status to penicillin; Z99.3 Dependence on wheelchair
CPT/HCPCS: 80053; 82150; 83605; 83690; 85025; 74177; 99284; 96360; 96361; Q9967

== ENCOUNTER 2020-08-22 12:38 | Inpatient (IN) | payer OTHER ==
[2020-08-22] MEDS ORDERED: IPRATROPIUM-ALBUTEROL 3 ML NEB INHALATION STA (13:01)
--- NOTE | 2020-08-22 13:04 | ED ---
General Adult HPI - General Source: patient, EMS, RN notes reviewed, old records reviewed Mode of arrival: EMS Limitations: physical limitation <Jerman Mc - Last Filed: 08/22/20 13:41> <Negra Fitzpatrick - Last Filed: 08/22/20 16:28> - General Chief complaint: Upper Respiratory Infection Stated complaint: HARLEY/Back Pain Time Seen by Provider: 08/22/20 12:46 - History of Present Illness Initial comments: Patient is a pleasant 55-year-old male presenting to the emergency department with cough and difficulty in breathing. Onset of symptoms was around 4 days ago. Patient has been coughing green sputum. No fevers. Patient also has had some discomfort of his left upper back. Discomfort is positional. Patient does have history of ALS and is wheelchair dependent. Patient does have history of asthma. No history of previous dyspnea associated with ALS. (Jerman Mc) - Related Data Home Medications Medication Instructions Recorded Confirmed Albuterol Sulfate [Proair Hfa] 2 puff INHALATION RT-Q4H PRN 07/28/15 03/10/20 Baclofen 10 mg PO 5XD PRN 03/10/20 03/10/20 Allergies Allergy/AdvReac Type Severity Reaction Status Date / Time peanut Allergy throat Verified 07/31/20 08:40 closes tree nut Allergy throat Verified 07/31/20 08:40 closes Penicillins AdvReac Nausea & Verified 07/31/20 08:40 Vomiting & Diarrhea Review of Systems ROS Other: All systems not noted in ROS Statement are negative. Constitutional: Denies: fever Eyes: Denies: eye pain ENT: Denies: ear pain Respiratory: Reports: cough, dyspnea Cardiovascular: Denies: chest pain Endocrine: Denies: fatigue Gastrointestinal: Denies: abdominal pain Genitourinary: Denies: dysuria Musculoskeletal: Reports: as per HPI Skin: Denies: rash Neurological: Reports: as per HPI <Jerman Mc - Last Filed: 08/22/20 13:41> ROS Other: All systems not noted in ROS Statement are negative. <Negra Fitzpatrick P - Last Filed: 08/22/20 16:28> ROS Statement: Those systems with pertinent positive or pertinent negative responses have been documented in the HPI. Past Medical History Past Medical History: Asthma Additional Past Medical History / Comment(s): c7 injury NECK PAIN WITH NUMNESS IN FINGERS OF left HAND. 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 Pt Dx with ALS. History of Any Multi-Drug Resistant Organisms: None Reported Past Surgical History: No Surgical Hx Reported Additional Past Surgical History / Comment(s): colonoscopy, hemorrhoidectomy. CYST removal just nelow waist. cervical spine repair, coming in for lumbar puncture Past Anesthesia/Blood Transfusion Reactions: No Reported Reaction Past Psychological History: Depression Smoking Status: Never smoker Past Alcohol Use History: None Reported Past Drug Use History: None Reported - Past Family History Mother Family Medical History: Cancer Additional Family Medical History / Comment(s): COLON Father Family Medical History: Cancer Additional Family Medical History / Comment(s): BRAIN <Jerman Mc Last Filed: 08/22/20 13:41> General Exam Limitations: physical limitation General appearance: alert, in no apparent distress Head exam: Present: normocephalic Eye exam: Present: normal appearance Neck exam: Present: normal inspection Respiratory exam: Present: rales. Absent: chest wall tenderness Cardiovascular Exam: Present: tachycardia GI/Abdominal exam: Present: soft. Absent: tenderness Extremities exam: Present: other (Atrophied extremity) Back exam: Present: tenderness (Point tenderness near the rib head with fullness on the left side around the fourth rib.) Neurological exam: Present: alert, other (Extremity weakness diffusely) Psychiatric exam: Present: normal affect, normal mood Skin exam: Present: normal color <Jerman Mc Last Filed: 08/22/20 13:41> Course Vital Signs 08/22/20 08/22/20 08/22/20 12:47 14:59 15:07 Temperature 98.2 F Pulse Rate 123 H 105 H 107 H Respiratory 16 18 18 Rate Blood Pressure 145/107 O2 Sat by Pulse 96 Oximetry EKG Findings - EKG Comments: EKG Findings:: Sinus tachycardia 114. WI 144. QRS 84. QT 326. QTc 449. Normal axis. Normal QRS. No acute ST change. <Jerman Mc Last Filed: 08/22/20 13:41> Medical Decision Making - Lab Data Result diagrams: 08/22/20 13:20 <Jerman Mc Last Filed: 08/22/20 13:41> - Lab Data Result diagrams: 08/22/20 13:20 08/22/20 13:20 <Negra Fitzpatrick P - Last Filed: 08/22/20 16:28> - Lab Data Lab Results 08/22/20 08/22/20 08/22/20 Range/Units 13:20 13:20 13:20 WBC 9.7 (3.8-10.6) k/uL RBC 5.06 (4.30-5.90) m/uL Hgb 14.9 (13.0-17.5) gm/dL Hct 42.2 (39.0-53.0) % MCV 83.4 (80.0-100.0) fL MCH 29.5 (25.0-35.0) pg MCHC 35.4 (31.0-37.0) g/dL RDW 12.7 (11.5-15.5) % Plt Count 260 (150-450) k/uL MPV 7.2 Neutrophils % 82 % Lymphocytes % 10 % Monocytes % 5 % Eosinophils % 2 % Basophils % 0 % Neutrophils # 7.9 H (1.3-7.7) k/uL Lymphocytes # 0.9 L (1.0-4.8) k/uL Monocytes # 0.5 (0-1.0) k/uL Eosinophils # 0.2 (0-0.7) k/uL Basophils # 0.0 (0-0.2) k/uL PT 10.0 (9.0-12.0) sec INR 0.9 (<1.2) APTT 22.8 (22.0-30.0) sec D-Dimer 1.06 H (<0.60) mg/L FEU Sodium 136 L (137-145) mmol/L Potassium 4.3 (3.5-5.1) mmol/L Chloride 102 (98-107) mmol/L Carbon Dioxide 23 (22-30) mmol/L Anion Gap 11 mmol/L BUN 9 (9-20) mg/dL Creatinine 0.17 L (0.66-1.25) mg/dL Est GFR (CKD-EPI)AfAm >90 (>60 ml/min/1.73 sqM) Est GFR (CKD-EPI)NonAf >90 (>60 ml/min/1.73 sqM) Glucose 122 H (74-99) mg/dL Plasma Lactic Acid Rio (0.7-2.0) mmol/L Calcium 9.5 (8.4-10.2) mg/dL Total Bilirubin 0.9 (0.2-1.3) mg/dL AST 34 (17-59) U/L ALT 23 (4-49) U/L Alkaline Phosphatase 64 (38-126) U/L Troponin I (0.000-0.034) ng/mL NT-Pro-B Natriuret Pep pg/mL Total Protein 6.6 (6.3-8.2) g/dL Albumin 4.2 (3.5-5.0) g/dL 08/22/20 08/22/20 08/22/20 Range/Units 13:20 13:20 13:20 WBC (3.8-10.6) k/uL RBC (4.30-5.90) m/uL Hgb (13.0-17.5) gm/dL Hct (39.0-53.0) % MCV (80.0-100.0) fL MCH (25.0-35.0) pg MCHC (31.0-37.0) g/dL RDW (11.5-15.5) % Plt Count (150-450) k/uL MPV Neutrophils % % Lymphocytes % % Monocytes % % Eosinophils % % Basophils % % Neutrophils # (1.3-7.7) k/uL Lymphocytes # (1.0-4.8) k/uL Monocytes # (0-1.0) k/uL Eosinophils # (0-0.7) k/uL Basophils # (0-0.2) k/uL PT (9.0-12.0) sec INR (<1.2) APTT (22.0-30.0) sec D-Dimer (<0.60) mg/L FEU Sodium (137-145) mmol/L Potassium (3.5-5.1) mmol/L Chloride (98-107) mmol/L Carbon Dioxide (22-30) mmol/L Anion Gap mmol/L BUN (9-20) mg/dL Creatinine (0.66-1.25) mg/dL Est GFR (CKD-EPI)AfAm (>60 ml/min/1.73 sqM) Est GFR (CKD-EPI)NonAf (>60 ml/min/1.73 sqM) Glucose (74-99) mg/dL Plasma Lactic Acid Rio 2.0 (0.7-2.0) mmol/L Calcium (8.4-10.2) mg/dL Total Bilirubin (0.2-1.3) mg/dL AST (17-59) U/L ALT (4-49) U/L Alkaline Phosphatase (38-126) U/L Troponin I <0.012 (0.000-0.034) ng/mL NT-Pro-B Natriuret Pep 34 pg/mL Total Protein (6.3-8.2) g/dL Albumin (3.5-5.0) g/dL Disposition <Jerman Mc - Last Filed: 08/22/20 13:41> <Negra Fitzpatrick - Last Filed: 08/22/20 16:28> Clinical Impression: Pneumonia, Pulmonary emboli, ALS (amyotrophic lateral sclerosis) Disposition: ADMITTED IP TO THIS HOSP Condition: Serious Referrals: Rachelle Mars MD [Primary Care Provider] - 1-2 days
[2020-08-22 13:34] LABS: Basophils % (A) 0 %; Eosinophils # (A) 0.2 k/uL (0-0.7); Eosinophils % (A) 2 %; HCT 42.2 % (39.0-53.0); HGB 14.9 gm/dL (13.0-17.5); Lymphocytes # (A) 0.9 k/uL (1.0-4.8); Lymphocytes % (A) 10 %; MCH 29.5 pg (25.0-35.0); MCHC 35.4 g/dL (31.0-37.0); MCV 83.4 fL (80.0-100.0); Mean Platelet Volume 7.2; Monocytes # (A) 0.5 k/uL (0-1.0); Monocytes % (A) 5 %; Neutrophils # (A) 7.9 k/uL (1.3-7.7); Neutrophils % (A) 82 %; Platelet Count 260 k/uL (150-450); RBC 5.06 m/uL (4.30-5.90); RDW 12.7 % (11.5-15.5); WBC 9.7 k/uL (3.8-10.6)
[2020-08-22 13:48] LABS: ALT 23 U/L (4-49); African American GFR (CKD) >90 (>60 ml/min/1.73 sqM); Albumin 4.2 g/dL (3.5-5.0); Anion Gap 11 mmol/L; Blood Urea Nitrogen 9 mg/dL (9-20); Calcium 9.5 mg/dL (8.4-10.2); Carbon Dioxide 23 mmol/L (22-30); Chloride 102 mmol/L (98-107); Glucose 122 mg/dL (74-99); Non-African American GFR(CKD) >90 (>60 ml/min/1.73 sqM); Sodium 136 mmol/L (137-145); Total Bilirubin 0.9 mg/dL (0.2-1.3); Total Protein 6.6 g/dL (6.3-8.2)
[2020-08-22 13:50] LABS: Potassium 4.3 mmol/L (3.5-5.1)
[2020-08-22 13:51] LABS: AST 34 U/L (17-59); Alkaline Phosphatase 64 U/L (38-126)
[2020-08-22 14:48] LABS: INR 0.9 (<1.2); Partial Thromboplastin Time 22.8 sec (22.0-30.0)
[2020-08-22 14:51] LABS: D-Dimer 1.06 mg/L FEU (<0.60)
--- NOTE | 2020-08-22 15:31 | XR ---
EXAMINATION TYPE: XR chest 2V DATE OF EXAM: 08/22/2020 COMPARISON: 05/05/2019 HISTORY: Difficulty breathing TECHNIQUE: 2 views FINDINGS: Heart and mediastinum are normal. Lungs are clear. Diaphragm is normal. Bony thorax is inta ct. Pulmonary vascularity is normal. IMPRESSION: Normal chest. No change.
--- NOTE | 2020-08-22 15:44 | CT ---
EXAMINATION TYPE: CT angio chest DATE OF EXAM: 08/22/2020 COMPARISON: None HISTORY: Cough and shortness of breath. CT DLP: 341.3 mGycm Automated exposure control for dose reduction was used. CONTRAST: Performed with IV Contrast, patient injected with 100 mL of Isovue 370. There are 3-D post processed images. The lungs are clear of consolidation. There is some mild subsegmental atelectasis in the left lower l obe. There is no pleural effusion. There is no pericardial effusion. There is no mediastinal adenopathy. There are no hilar masses. Thoracic aorta appears intact. There i s no aneurysm or dissection. The ascending aorta measures 3.6 cm. There are small filling defects in the left lower lobe pulmonary artery and the posterior basal segme nt branch. There are a few left bronchial lymph nodes that measure up to 1.5 cm. The bony thorax is i ntact. There is no thoracic compression fracture. IMPRESSION: Small embolism in the left lower lobe pulmonary artery posterior basal segment branch. There is some linear infiltrate and atelectasis left lower lobe with small pleural effusion and also mild left bronchial adenopathy. No evidence of right heart strain. Normal heart. This exam was discussed with Dr. Anderson at 3:45 PM.
[2020-08-22] MEDS ORDERED: AZITHROMYCIN 500 MG in SODIUM CHLORIDE 0.9% 250 ML IVPB STA (16:07)
[2020-08-22] MEDS ORDERED: cefTRIAXone IN SWFI 1,000 MG/10 ML SYRINGE IVP STA (16:07)
[2020-08-22] MEDS ORDERED: HEPARIN SODIUM 1,000 UN/ML (10ML VL) IV PRN (16:08)
[2020-08-22] MEDS ORDERED: HEPARIN SODIUM 1,000 UN/ML (10ML VL) IV ONE (16:08)
[2020-08-22] MEDS ORDERED: HEPARIN SOD,PORK IN 0.45% NACL 25,000 UNIT in 0.45% NACL 1 250ML.BAG IV SCH (16:15)
[2020-08-22] MEDS ORDERED: NALOXONE 0.4 MG/ML 1 ML VIAL IV PRN (16:26)
[2020-08-22] MEDS ORDERED: SODIUM CHLORIDE 0.9% (DEHP FRE 500 ML IV ONE (16:40)
[2020-08-22] MEDS ORDERED: ONDANSETRON 4 MG/2 ML VIAL IVP PRN (16:41)
--- NOTE | 2020-08-22 16:46 | P.HPIM ---
History of Present Illness H&P Date: 08/22/20 Chief Complaint: Shortness of breath and cough This is a 55-year-old male with past medical history significant for underlying ALS following at [facility] and presented to the emergency room with worsening shortness of breath and cough. Patient informed me that he is wheelchair bound but for the past few days has been having worsening cough that is usually productive of green phlegm. He denies any fevers or chills. He initially did not have any shortness of breath but today started feeling more short of breath sitting in his chair. He was brought into the emergency room for further evaluation. In the ER, patient was found to be tachycardic but no other evidence of sepsis. His d-dimer was elevated. CT angiogram of the chest was positive for a small PE and evidence of pneumonia. Patient will be admitted to the hospital for further management. Patient otherwise does not have any specific complaints or concerns. His is at bedside. Review of Systems Review of system: 14 points review of systems were obtained and were negative except to what were mentioned in the HPI. Past Medical History Past Medical History: Asthma Additional Past Medical History / Comment(s): c7 injury NECK PAIN WITH NUMNESS IN FINGERS OF left HAND. 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 Pt Dx with ALS. History of Any Multi-Drug Resistant Organisms: None Reported Past Surgical History: No Surgical Hx Reported Additional Past Surgical History / Comment(s): colonoscopy, hemorrhoidectomy. CYST removal just nelow waist. cervical spine repair, coming in for lumbar puncture Past Anesthesia/Blood Transfusion Reactions: No Reported Reaction Past Psychological History: Depression Smoking Status: Never smoker Past Alcohol Use History: None Reported Past Drug Use History: None Reported - Past Family History Mother Family Medical History: Cancer Additional Family Medical History / Comment(s): COLON Father Family Medical History: Cancer Additional Family Medical History / Comment(s): BRAIN Medications and Allergies Home Medications Medication Instructions Recorded Confirmed Type Albuterol Sulfate [Proair Hfa] 2 puff INHALATION RT-Q4H PRN 07/28/15 03/10/20 Hi story Baclofen 10 mg PO 5XD PRN 03/10/20 03/10/20 History Allergies Allergy/AdvReac Type Severity Reaction Status Date / Time peanut Allergy throat Verified 07/31/20 08:40 closes tree nut Allergy throat Verified 07/31/20 08:40 closes Penicillins AdvReac Nausea & Verified 07/31/20 08:40 Vomiting & Diarrhea Physical Exam Vitals: Vital Signs Temp Pulse Resp BP Pulse Ox 08/22/20 15:07 107 H 18 08/22/20 14:59 105 H 18 08/22/20 12:47 98.2 F 123 H 16 145/107 96 Intake and Output 08/22/20 08/22/20 08/22/20 06:59 14:59 22:59 Other: Weight 54.431 kg General: The patient is awake and alert, in no distress Eye: there is normal conjunctiva bilaterally. Neck: The neck is supple, there is no JVD. Cardiovascular: Normal S1-S2, no S3-S4, no murmurs. Respiratory: Lungs clear to auscultation bilaterally Gastrointestinal: Abdomen is soft, nontender Musculoskeletal: There is some puffiness in both feet. Neurological:. Speech is normal. Skin: Skin is warm and dry Results CBC & Chem 7: 08/22/20 13:20 08/22/20 13:20 Labs: Abnormal Lab Results - Last 24 Hours (Table) 08/22/20 08/22/20 08/22/20 Range/Units 13:20 13:20 13:20 Neutrophils # 7.9 H (1.3-7.7) k/uL Lymphocytes # 0.9 L (1.0-4.8) k/uL D-Dimer 1.06 H (<0.60) mg/L FEU Sodium 136 L (137-145) mmol/L Creatinine 0.17 L (0.66-1.25) mg/dL Glucose 122 H (74-99) mg/dL Assessment and Plan Assessment: 1. Acute PE, small PE noted in the left lower lobe the pulmonary artery. Started on anticoagulation with IV heparin. No evidence of right ventricular s train. 2. Community-acquired pneumonia involving the left lower lobe. Started on IV ceftriaxone and azithromycin. Any component of atelectasis. I would order pro- calcitonin and sputum culture. Incentive spirometer every 1 hour while awake. 3. Underlying ALS chronically wheelchair bound. Following with [place] [facility] 4. CODE STATUS, patient is DO NOT RESUSCITATE/DO NOT INTUBATE Today, I reviewed his medication list and lab work results. We will continue current management. Anticipate over to midnight stays in the hospital.
--- NOTE | 2020-08-22 16:47 | P.PN ---
Progress Note - Text Progress Note Date: 08/22/20 Today, we discussed goals of care and CODE STATUS. I explained the patient the meaning of cardiac resuscitation and mechanical ventilation. Patient told me that he would like to be DO NOT RESUSCITATE/DO NOT INTUBATE. I answered all of his questions to his satisfaction.
[2020-08-22 17:07] LABS: Basophils % (A) 0 %; Eosinophils # (A) 0.3 k/uL (0-0.7); Eosinophils % (A) 3 %; HGB 14.4 gm/dL (13.0-17.5); Lymphocytes # (A) 0.9 k/uL (1.0-4.8); Lymphocytes % (A) 8 %; MCH 28.8 pg (25.0-35.0); MCHC 34.3 g/dL (31.0-37.0); MCV 84.1 fL (80.0-100.0); Mean Platelet Volume 7.3; Monocytes # (A) 0.6 k/uL (0-1.0); Monocytes % (A) 6 %; Neutrophils # (A) 8.6 k/uL (1.3-7.7); Neutrophils % (A) 83 %; Platelet Count 255 k/uL (150-450); RDW 12.8 % (11.5-15.5); WBC 10.4 k/uL (3.8-10.6)
[2020-08-22 17:21] LABS: Prothrombin Time 10.8 sec (9.0-12.0)
[2020-08-22] MEDS: polyethylene glycoL 3350 17 GM POWD.PACK PO SCH (20:56)
[2020-08-23] MEDS ORDERED: IPRATROPIUM-ALBUTEROL 3 ML NEB INHALATION PRN (04:51)
[2020-08-23 08:01] LABS: Basophils % (A) 0 %; Eosinophils # (A) 0.4 k/uL (0-0.7); Eosinophils % (A) 5 %; Lymphocytes # (A) 1.1 k/uL (1.0-4.8); Lymphocytes % (A) 15 %; MCH 28.4 pg (25.0-35.0); MCHC 33.4 g/dL (31.0-37.0); MCV 84.9 fL (80.0-100.0); Mean Platelet Volume 7.4; Monocytes # (A) 0.5 k/uL (0-1.0); Monocytes % (A) 7 %; Neutrophils # (A) 5.3 k/uL (1.3-7.7); Neutrophils % (A) 72 %; Platelet Count 252 k/uL (150-450); RBC 4.94 m/uL (4.30-5.90); WBC 7.3 k/uL (3.8-10.6)
[2020-08-23] MEDS: ACETAMINOPHEN TAB 325 MG TAB PO PRN ×2 (08:33→20:00)
[2020-08-23] MEDS: AZITHROMYCIN 250 MG TAB PO SCH (09:01)
[2020-08-23] MEDS: HYDROcodone/APAP 5-325MG 1 EACH TAB PO PRN ×2 (09:04→19:59)
[2020-08-23] MEDS: guaiFENesin SYRUP 100MG/5ML 200 MG/10 ML CUP PO PRN ×2 (09:10→19:59)
[2020-08-23] MEDS: IPRATROPIUM-ALBUTEROL 3 ML NEB INHALATION PRN ×3 (11:10→20:12)
--- NOTE | 2020-08-23 13:12 | P.PN ---
Subjective Progress Note Date: 08/23/20 Patient is still complaining of a lot of coughing this morning. He denies any hemoptysis. No fevers or chills. Objective - Vital Signs Vital signs: Vital Signs Temp 97.9 F 08/23/20 08:00 Pulse 96 08/23/20 11:18 Resp 20 08/23/20 08:00 BP 109/84 08/23/20 08:00 Pulse Ox 96 08/23/20 08:00 Intake & Output 08/22/20 08/23/20 08/23/20 18:59 06:59 18:59 Intake Total 563.61 240 Output Total 0 Balance 563.61 240 Weight 54.431 kg 65.5 kg Intake: Intake, IV Titration 83.61 Amount Heparin Sod,Pork in 0.45% 83.61 NaCl 25,000 unit In 0.45 % NaCl 1 250ml.bag @ 18 UNITS/KG/HR 9.798 mls/hr IV .Q24H RAMANDEEP Rx#: [id number] Oral 480 240 Output: Urine 0 Stool 0 Other: # Voids 0 # Bowel Movements 0 - Exam General: The patient is awake and alert, in no distress Eye: there is normal conjunctiva bilaterally. Neck: The neck is supple, there is no JVD. Cardiovascular: Normal S1-S2, no S3-S4, no murmurs. Respiratory: Lungs clear to auscultation bilaterally Gastrointestinal: Abdomen is soft, nontender Musculoskeletal: There is no pedal edema. Neurological:. Speech is normal. Skin: Skin is warm and dry - Labs CBC & Chem 7: 08/23/20 06:54 08/22/20 13:20 Labs: Abnormal Lab Results - Last 24 Hours (Table) 08/22/20 08/22/20 08/22/20 Range/Units 13:20 13:20 13:20 Neutrophils # 7.9 H (1.3-7.7) k/uL Lymphocytes # 0.9 L (1.0-4.8) k/uL APTT (22.0-30.0) sec D-Dimer 1.06 H (<0.60) mg/L FEU Sodium 136 L (137-145) mmol/L Creatinine 0.17 L (0.66-1.25) mg/dL Glucose 122 H (74-99) mg/dL Procalcitonin (0.02-0.09) ng/mL 08/22/20 08/22/20 08/22/20 Range/Units 16:55 16:57 23:44 Neutrophils # 8.6 H (1.3-7.7) k/uL Lymphocytes # 0.9 L (1.0-4.8) k/uL APTT 35.2 H (22.0-30.0) sec D-Dimer (<0.60) mg/L FEU Sodium (137-145) mmol/L Creatinine (0.66-1.25) mg/dL Glucose (74-99) mg/dL Procalcitonin 0.10 H (0.02-0.09) ng/mL 08/23/20 Range/Units 06:54 Neutrophils # (1.3-7.7) k/uL Lymphocytes # (1.0-4.8) k/uL APTT 34.8 H (22.0-30.0) sec D-Dimer (<0.60) mg/L FEU Sodium (137-145) mmol/L Creatinine (0.66-1.25) mg/dL Glucose (74-99) mg/dL Procalcitonin (0.02-0.09) ng/mL Assessment and Plan Assessment: This is a 55-year-old male with complex past medical history noted below significant for underlying ALS is chronically wheelchair bound that presented to the hospital with worsening shortness of breath and cough. Patient was evaluated in the ER and admitted to the hospital for further management of his medical problems noted below. 1. Acute PE, small PE noted in the left lower lobe the pulmonary artery. Started on anticoagulation with IV heparin. No evidence of right ventricular strain. I would switch anticoagulation to Rivaroxaban starting today 2. Community-acquired pneumonia involving the left lower lobe. Started on IV ceftriaxone and azithromycin day #2. Maybe component of atelectasis. Pro- calcitonin slightly elevated. Incentive spirometer every 1 hour while awake. We would finish 5 days course of antibiotic 3. Underlying ALS chronically wheelchair bound. Following with [place] [facility] 4. CODE STATUS, patient is DO NOT RESUSCITATE/DO NOT INTUBATE Today, I reviewed his medication list and lab work results. We will continue current management. Anticipate discharge home within the next day or 2
[2020-08-23] MEDS: RIVAROXABAN 15 MG TAB PO SCH (18:21)
[2020-08-23] MEDS: polyethylene glycoL 3350 17 GM POWD.PACK PO SCH (19:59)
[2020-08-24] MEDS: RIVAROXABAN 15 MG TAB PO SCH ×2 (06:19→16:59)
[2020-08-24] MEDS: guaiFENesin SYRUP 100MG/5ML 200 MG/10 ML CUP PO PRN ×2 (06:19→19:59)
[2020-08-24] MEDS: IPRATROPIUM-ALBUTEROL 3 ML NEB INHALATION PRN ×4 (07:49→19:26)
[2020-08-24] MEDS: AZITHROMYCIN 250 MG TAB PO SCH (09:17)
--- NOTE | 2020-08-24 10:26 | P.DS ---
Providers Date of admission: 08/22/20 16:26 Expected date of discharge: 08/24/20 Attending physician: Kennedy Mcgarry Primary care physician: Rachelle Mars MD Hospital Course: This is a 55-year-old male with complex past medical history noted below significant for underlying ALS is chronically wheelchair bound that presented to the hospital with worsening shortness of breath and cough. Patient was evaluated in the ER and admitted to the hospital for further management of his medical problems noted below. 1. Acute PE, small PE noted in the left lower lobe the pulmonary artery. Started on anticoagulation with IV heparin. No evidence of right ventricular strain. I would switch anticoagulation to Rivaroxaban 2. Community-acquired pneumonia involving the left lower lobe. Started on IV ceftriaxone and azithromycin. Maybe component of atelectasis. Pro-calcitonin slightly elevated. Incentive spirometer every 1 hour while awake. We would finish 5 days course of antibiotic 3. Underlying ALS chronically wheelchair bound. Following with [place] [facility] 4. CODE STATUS, patient is DO NOT RESUSCITATE/DO NOT INTUBATE Patient will be discharged home in a stable condition. For further details about this hospitalization please refer to the electronic chart. Time spent on discharge > 30 minutes including counseling and coordination of care Patient Condition at Discharge: Fair Plan - Discharge Summary Discharge Rx Participant: No New Discharge Prescriptions: New Cephalexin [Keflex] 500 mg PO Q6HR 3 Days #12 cap polyethylene glycoL 3350 [Miralax] 17 gm PO HS #30 powd.pack Rivaroxaban [Xarelto Starter Pack] 0 mg PO DIRECTED 30 Days #1 pack Azithromycin [Zithromax] 250 mg PO DAILY 3 Days #3 tab Continue Albuterol Sulfate [Proair Hfa] 2 puff INHALATION RT-Q4H PRN PRN Reason: Shortness Of Breath Baclofen 10 mg PO 5XD PRN PRN Reason: stiffness guaiFENesin [Mucinex] 600 mg PO Q12HR PRN PRN Reason: COUGH/ CONGESTION Riluzole [Rilutek] 50 mg PO BID Budesonide/Formoterol Fumarate [Symbicort 80-4.5 Mcg Inhaler] 2 puff PO BID Discharge Medication List Albuterol Sulfate [Proair Hfa] 2 puff INHALATION RT-Q4H PRN 07/28/15 [History] Baclofen 10 mg PO 5XD PRN 03/10/20 [History] Budesonide/Formoterol Fumarate [Symbicort 80-4.5 Mcg Inhaler] 2 puff PO BID 08/22/20 [History] Riluzole [Rilutek] 50 mg PO BID 08/22/20 [History] guaiFENesin [Mucinex] 600 mg PO Q12HR PRN 08/22/20 [History] Azithromycin [Zithromax] 250 mg PO DAILY 3 Days #3 tab 08/24/20 [Rx] Cephalexin [Keflex] 500 mg PO Q6HR 3 Days #12 cap 08/24/20 [Rx] Rivaroxaban [Xarelto Starter Pack] 0 mg PO DIRECTED 30 Days #1 pack 08/24/20 [Rx] polyethylene glycoL 3350 [Miralax] 17 gm PO HS #30 powd.pack 08/24/20 [Rx] Follow up Appointment(s)/Referral(s): [facility], [NON-STAFF] - Rachelle Mars MD [Primary Care Provider] - 1-2 days Discharge Disposition: HOME SELF-CARE
[2020-08-24] MEDS: HYDROcodone/APAP 5-325MG 1 EACH TAB PO PRN ×2 (13:55→19:58)
[2020-08-24] MEDS: SODIUM CHLORIDE 0.9% 1,000 ML IV SCH (13:59)
[2020-08-24] MEDS: ACETAMINOPHEN TAB 325 MG TAB PO PRN (19:58)
[2020-08-24] MEDS: polyethylene glycoL 3350 17 GM POWD.PACK PO SCH (19:58)
[2020-08-25] MEDS: IPRATROPIUM-ALBUTEROL 3 ML NEB INHALATION PRN ×2 (02:03→08:20)
[2020-08-25] MEDS: guaiFENesin 600 MG TABLET.ER PO SCH ×2 (03:12→12:03)
[2020-08-25] MEDS: SODIUM CHLORIDE 0.9% 1,000 ML IV SCH ×2 (03:12→17:51)
[2020-08-25] MEDS: RIVAROXABAN 15 MG TAB PO SCH ×2 (06:32→17:40)
[2020-08-25 08:21] LABS: Basophils % (A) 0 %; Eosinophils # (A) 0.2 k/uL (0-0.7); Eosinophils % (A) 2 %; HGB 13.5 gm/dL (13.0-17.5); Lymphocytes # (A) 0.8 k/uL (1.0-4.8); Lymphocytes % (A) 7 %; MCH 28.6 pg (25.0-35.0); MCHC 33.9 g/dL (31.0-37.0); MCV 84.5 fL (80.0-100.0); Mean Platelet Volume 7.1; Monocytes # (A) 0.7 k/uL (0-1.0); Monocytes % (A) 6 %; Neutrophils # (A) 9.8 k/uL (1.3-7.7); Neutrophils % (A) 85 %; Platelet Count 273 k/uL (150-450); RBC 4.73 m/uL (4.30-5.90); WBC 11.6 k/uL (3.8-10.6)
[2020-08-25 08:23] VITALS: RESP 18
[2020-08-25 08:42] LABS: African American GFR (CKD) >90 (>60 ml/min/1.73 sqM); Anion Gap 10 mmol/L; Blood Urea Nitrogen 6 mg/dL (9-20); Calcium 8.5 mg/dL (8.4-10.2); Carbon Dioxide 23 mmol/L (22-30); Chloride 102 mmol/L (98-107); Glucose 96 mg/dL (74-99); Non-African American GFR(CKD) >90 (>60 ml/min/1.73 sqM); Potassium 3.9 mmol/L (3.5-5.1); Sodium 135 mmol/L (137-145)
[2020-08-25] MEDS: AZITHROMYCIN 250 MG TAB PO SCH (09:12)
[2020-08-25] MEDS ORDERED: NA PHOS,M-B/NA PHOS,DI-BA 133 ML ENEMA RECTAL ONE (10:20)
[2020-08-25] MEDS: IPRATROPIUM-ALBUTEROL 3 ML NEB INHALATION SCH ×3 (11:35→18:56)
[2020-08-25 17:18] VITALS: BP 128/79; PULSE 134; TEMP 98.7
--- NOTE | 2020-08-25 17:59 | P.DS ---
Providers Date of admission: 08/22/20 16:26 Expected date of discharge: 08/25/20 Attending physician: Kennedy Mcgarry Primary care physician: Rachelle Mars MD Hospital Course: Discharge Diagnosis: Small left lower lobe pulmonary embolism Community-acquired pneumonia left lower lobe ALS Chronic respiratory failure secondary to ALS with need for noninvasive mechanical ventilation at night Tachycardia Constipation, anticipate neurologic. He will continue with MiraLAX at home and Fleet enema as needed. Hospital Course: Patient is a 55-year-old male with known a rapidly advancing ALS, chronic respiratory issues requiring noninvasive ventilation at night, and asthma who initially presented to the ER with complaints of shortness of breath and cough. He subsequently underwent a CTA of the chest which showed a small left lower lobe pulmonary embolism as well as community-acquired pneumonia in the left lower lobe. This subsequently started on anticoagulation with heparin and IV antibiotics in the form of Rocephin and Zithromax. He was monitored closely. She was transitioned to Xarelto. He did not have any recurrent fevers while in the hospital. His white blood cell count did elevate slightly. He has not been using his home BiPAP at night. He was noted to have some tachycardia with sitting in his wheelchair on 08/24 his discharge was subsequently held. His tachycardia improved on 08/25 but again was elevated only when up in his wheelchair. He reports that this has been noted at home. He is asymptomatic and denies lightheadedness, dizziness, and shortness of breath. He feels much improved as compared with arrival. He is requesting discharge home. We went over the fact that he still has tachycardia which could be from pneumonia, pulmonary embolism, or autonomic instability secondary to his ALS. I've asked him to monitor his heart rate at home. I did ask him to stay 1 more night in hospital, however he really wanted to be discharged home and I subsequently agreed. He was given strict instructions to return should he have lightheadedness, dizziness, worsening cough, worsening shortness of breath, worsening chest pain, or fever greater than 100.4. He will complete 4 additional days of antibiotics. He has been given a prescription for Xarelto starter pack and his nebulized breathing treatments have been refilled. He will follow-up with his primary care physician on 08/31. Patient seen and examined at bedside. He states he is feeling much better than on arrival to the hospital. He denies any shortness of breath, chest pain, lightheadedness, dizziness, palpitations. He continues to have some cough but is getting better and he is producing more sputum. Vital signs reviewed and stable. General: non toxic, no distress, appears at stated age Derm: warm, dry Head: atraumatic, normocephalic, symmetric Eyes: EOMI, no lid lag, anicteric sclera Mouth: no lip lesion, mucus membranes moist Cardiovascular: S1S2 tachycardic, no murmur, positive posterior tibial pulse bilateral, Lungs: Decreased breath sounds bilateral, no rhonchi, no rales , no accessory muscle use Abdominal: soft, nontender to palpation, no guarding, no appreciable organomegaly Ext: no gross muscle atrophy, no edema, no contractures Neuro: CN II-XI grossly intact, no focal neuro deficits Psych: Alert, oriented, appropriate affect A total of 40 minutes of time were spent preparing this complex discharge summary . Patient Condition at Discharge: Fair Plan - Discharge Summary Discharge Rx Participant: No New Discharge Prescriptions: New Ipratropium-Albuterol Nebulize [Duoneb 0.5 mg-3 mg/3 ml Soln] 3 ml INHALATION RT-QID 30 Days #1 box polyethylene glycoL 3350 [Miralax] 17 gm PO HS #30 powd.pack Rivaroxaban [Xarelto Starter Pack] 0 mg PO DIRECTED 30 Days #1 pack Azithromycin [Zithromax] 250 mg PO DAILY 3 Days #3 tab Cefdinir [Omnicef] 300 mg PO Q12HR #8 capsule Continue Albuterol Sulfate [Proair Hfa] 2 puff INHALATION RT-Q4H PRN PRN Reason: Shortness Of Breath Baclofen 10 mg PO 5XD PRN PRN Reason: stiffness guaiFENesin [Mucinex] 600 mg PO Q12HR PRN PRN Reason: COUGH/ CONGESTION Riluzole [Rilutek] 50 mg PO BID Budesonide/Formoterol Fumarate [Symbicort 80-4.5 Mcg Inhaler] 2 puff PO BID Discharge Medication List Albuterol Sulfate [Proair Hfa] 2 puff INHALATION RT-Q4H PRN 07/28/15 [History] Baclofen 10 mg PO 5XD PRN 03/10/20 [History] Budesonide/Formoterol Fumarate [Symbicort 80-4.5 Mcg Inhaler] 2 puff PO BID 08/22/20 [History] Riluzole [Rilutek] 50 mg PO BID 08/22/20 [History] guaiFENesin [Mucinex] 600 mg PO Q12HR PRN 08/22/20 [History] Azithromycin [Zithromax] 250 mg PO DAILY 3 Days #3 tab 08/24/20 [Rx] Rivaroxaban [Xarelto Starter Pack] 0 mg PO DIRECTED 30 Days #1 pack 08/24/20 [Rx] polyethylene glycoL 3350 [Miralax] 17 gm PO HS #30 powd.pack 08/24/20 [Rx] Cefdinir [Omnicef] 300 mg PO Q12HR #8 capsule 08/25/20 [Rx] Ipratropium-Albuterol Nebulize [Duoneb 0.5 mg-3 mg/3 ml Soln] 3 ml INHALATION RT-QID 30 Days #1 box 08/25/20 [Rx] Follow up Appointment(s)/Referral(s): [facility], [NON-STAFF] - Rachelle Mars MD [Primary Care Provider] - 08/27/20 1:00 pm (call office when you get home) Jesenia Johns MD [STAFF PHYSICIAN] - 1 Week Patient Instructions/Handouts: Pulmonary Embolism (DC), Viral Pneumonia (DC) Activity/Diet/Wound Care/Special Instructions: Wheelchair van scheduled for 1829 - if patient not discharged call [phone] Discharge Disposition: HOME SELF-CARE
== END 2020-08-25 19:16 | disposition home or self-care (01) | DRG 193 ==
LOC: EC 12:38 → 3SCARD 16:26
PROVIDERS: ADMIT Internal Medicine; ATTEND Internal Medicine
DX: J18.9 Pneumonia, unspecified organism (principal); I26.99 Other pulmonary embolism without acute cor pulmonale; G12.21 Amyotrophic lateral sclerosis; J98.11 Atelectasis; J96.10 Chronic respiratory failure, unspecified whether with hypoxia or hypercapnia; K59.00 Constipation, unspecified; Z20.822 Contact with and (suspected) exposure to COVID-19; Z66 Do not resuscitate; R00.0 Tachycardia, unspecified; F32.9 Major depressive disorder, single episode, unspecified; J45.909 Unspecified asthma, uncomplicated; M21.372 Foot drop, left foot; M54.2 Cervicalgia; Z99.3 Dependence on wheelchair; Z88.0 Allergy status to penicillin; Z91.010 Allergy to peanuts; Z91.018 Allergy to other foods; Z79.899 Other long term (current) drug therapy; Z87.19 Personal history of other diseases of the digestive system
CPT/HCPCS: 36415; 71046; 71275; 80048; 80053; 83605; 83880; 84145; 84484; 85025; 85379; 85610; 85730; 87040; 87070; 87205; 87635; 93005; 94640; 94760; 99285

== ENCOUNTER 2020-08-29 11:21 | Inpatient (IN) | payer OTHER ==
[2020-08-29] MEDS ORDERED: IPRATROPIUM-ALBUTEROL 3 ML NEB INHALATION STA (11:45)
--- NOTE | 2020-08-29 11:52 | ED ---
General Adult HPI - General Chief complaint: Shortness of Breath Stated complaint: pneumonia Time Seen by Provider: 08/29/20 11:25 Source: patient, EMS, RN notes reviewed, old records reviewed Mode of arrival: EMS Limitations: no limitations - History of Present Illness Initial comments: This is a 55-year-old male with past medical history significant for ALS. Patient states she was recently diagnosed with pneumonia and pulmonary embolism. Patient states he went home and started to get better but over the last couple of days his coughing is considerably worse and is more short of breath. Patient denies any fever chills per patient denies any chest pain or palpitations. Patient denies any abdominal pain patient denies any nausea or vomiting. Patient denies any other problems at this time. - Related Data Home Medications Medication Instructions Recorded Confirmed Albuterol Sulfate [Proair Hfa] 2 puff INHALATION RT-Q4H PRN 07/28/15 08/29/20 Baclofen 10 mg PO 5XD PRN 03/10/20 08/29/20 Budesonide/Formoterol Fumarate 2 puff INHALATION RT-BID 08/22/20 08/29/20 [Symbicort 80-4.5 Mcg Inhaler] Riluzole [Rilutek] 50 mg PO BID 08/22/20 08/29/20 guaiFENesin [Mucinex] 600 mg PO Q12HR PRN 08/22/20 08/29/20 Cefdinir [Omnicef] 300 mg PO Q12H 08/29/20 08/29/20 Rivaroxaban [Xarelto Starter Pack] See Taper PO DIRECTED 08/29/20 08/29/20 Previous Rx's Medication Instructions Recorded polyethylene glycoL 3350 [Miralax] 17 gm PO HS #30 powd.pack 08/24/20 Ipratropium-Albuterol Nebulize 3 ml INHALATION RT-QID 30 Days #1 08/25/20 [Duoneb 0.5 mg-3 mg/3 ml Soln] box Allergies Allergy/AdvReac Type Severity Reaction Status Date / Time peanut Allergy Anaphylaxis Verified 08/29/20 13:58 tree nut Allergy Anaphylaxis Verified 08/29/20 13:58 Penicillins AdvReac Nausea & Verified 08/29/20 13:58 Vomiting & Diarrhea Review of Systems ROS Statement: Those systems with pertinent positive or pertinent negative responses have been documented in the HPI. ROS Other: All systems not noted in ROS Statement are negative. Past Medical History Past Medical History: Asthma Additional Past Medical History / Comment(s): c7 injury NECK PAIN WITH NUMNESS IN FINGERS OF left HAND. 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 Pt Dx with ALS. History of Any Multi-Drug Resistant Organisms: None Reported Past Surgical History: No Surgical Hx Reported Additional Past Surgical History / Comment(s): colonoscopy, hemorrhoidectomy. CYST removal just nelow waist. cervical spine repair, coming in for lumbar puncture Past Anesthesia/Blood Transfusion Reactions: No Reported Reaction Past Psychological History: Depression Smoking Status: Never smoker Past Alcohol Use History: None Reported Past Drug Use History: None Reported - Past Family History Mother Family Medical History: Cancer Additional Family Medical History / Comment(s): COLON Father Family Medical History: Cancer Additional Family Medical History / Comment(s): BRAIN General Exam - General Exam Comments Initial Comments: GENERAL: Patient is well-developed and well-nourished. Patient is nontoxic and well- hydrated and is in mild distress. ENT: Neck is soft and supple. No significant lymphadenopathy is noted. Oropharynx is clear. Moist mucous membranes. Neck has full range of motion without eliciting any pain. EYES: The sclera were anicteric and conjunctiva were pink and moist. Extraocular movements were intact and pupils were equal round and reactive to light. Eyelids were unremarkable. PULMONARY: Good breath sounds bilaterally. Expiratory wheezing. CARDIOVASCULAR: There is a regular rate and rhythm without any murmurs gallops or rubs. ABDOMEN: Soft and nontender with normal bowel sounds. SKIN: Skin is clear with no lesions or rashes and otherwise unremarkable. NEUROLOGIC: Patient is alert and oriented x3. Cranial nerves II through XII are grossly intact. Motor and sensory are also intact. Normal speech, volume and content. Symmetrical smile. MUSCULOSKELETAL: Normal extremities with adequate strength and full range of motion. No lower extremity swelling or edema. No calf tenderness. LYMPHATICS: No significant lymphadenopathy is noted PSYCHIATRIC: Normal psychiatric evaluation. Limitations: no limitations Course Vital Signs 08/29/20 08/29/20 08/29/20 11:25 12:16 12:28 Temperature 98.4 F Pulse Rate 120 H 127 H 124 H Respiratory 20 28 H 18 Rate Blood Pressure 137/88 O2 Sat by Pulse 95 Oximetry 08/29/20 08/29/20 13:06 13:16 Temperature Pulse Rate 130 H Respiratory 18 18 Rate Blood Pressure 114/82 O2 Sat by Pulse 97 Oximetry Medical Decision Making - Medical Decision Making EKG shows sinus tachycardia at 127 bpm AR interval is 142 QRS is 82 QT interval 04 QTC is 441. Patient's EKG shows no ST segment elevation or depression. X-ray of the chest shows a left lower lobe infiltrate. I started the patient on antibiotics. I spoke with Dr. Conroy and she agreed to admit the patient admitted the patient I wrote admitting orders and consulted pulmonology. - Lab Data Result diagrams: 08/29/20 12:18 08/29/20 12:18 Lab Results 08/29/20 08/29/20 08/29/20 Range/Units 12:18 12:18 12:18 WBC 19.7 H (3.8-10.6) k/uL RBC 4.81 (4.30-5.90) m/uL Hgb 14.1 (13.0-17.5) gm/dL Hct 40.5 (39.0-53.0) % MCV 84.2 (80.0-100.0) fL MCH 29.2 (25.0-35.0) pg MCHC 34.8 (31.0-37.0) g/dL RDW 12.8 (11.5-15.5) % Plt Count 363 (150-450) k/uL MPV 7.0 Neutrophils % 93 % Lymphocytes % 3 % Monocytes % 3 % Eosinophils % 1 % Basophils % 0 % Neutrophils # 18.2 H (1.3-7.7) k/uL Lymphocytes # 0.5 L (1.0-4.8) k/uL Monocytes # 0.6 (0-1.0) k/uL Eosinophils # 0.3 (0-0.7) k/uL Basophils # 0.0 (0-0.2) k/uL Sodium 138 (137-145) mmol/L Potassium 3.6 (3.5-5.1) mmol/L Chloride 97 L (98-107) mmol/L Carbon Dioxide 28 (22-30) mmol/L Anion Gap 13 mmol/L BUN 6 L (9-20) mg/dL Creatinine 0.19 L (0.66-1.25) mg/dL Est GFR (CKD-EPI)AfAm >90 (>60 ml/min/1.73 sqM) Est GFR (CKD-EPI)NonAf >90 (>60 ml/min/1.73 sqM) Glucose 108 H (74-99) mg/dL Plasma Lactic Acid Rio 1.7 (0.7-2.0) mmol/L Calcium 9.4 (8.4-10.2) mg/dL Total Bilirubin 0.7 (0.2-1.3) mg/dL AST 23 (17-59) U/L ALT 23 (4-49) U/L Alkaline Phosphatase 99 (38-126) U/L Total Protein 6.6 (6.3-8.2) g/dL Albumin 3.9 (3.5-5.0) g/dL Disposition Clinical Impression: Pneumonia Disposition: ADMITTED IP TO THIS [facility] Referrals: Rachelle Mars MD [Primary Care Provider] - 1-2 days Time of Disposition: 13:22
[2020-08-29 12:35] LABS: Basophils % (A) 0 %; Eosinophils # (A) 0.3 k/uL (0-0.7); Eosinophils % (A) 1 %; HCT 40.5 % (39.0-53.0); HGB 14.1 gm/dL (13.0-17.5); Lymphocytes # (A) 0.5 k/uL (1.0-4.8); Lymphocytes % (A) 3 %; MCH 29.2 pg (25.0-35.0); MCHC 34.8 g/dL (31.0-37.0); MCV 84.2 fL (80.0-100.0); Monocytes # (A) 0.6 k/uL (0-1.0); Monocytes % (A) 3 %; Neutrophils # (A) 18.2 k/uL (1.3-7.7); Neutrophils % (A) 93 %; Platelet Count 363 k/uL (150-450); RBC 4.81 m/uL (4.30-5.90); RDW 12.8 % (11.5-15.5); WBC 19.7 k/uL (3.8-10.6)
[2020-08-29 12:45] LABS: ALT 23 U/L (4-49); AST 23 U/L (17-59); African American GFR (CKD) >90 (>60 ml/min/1.73 sqM); Albumin 3.9 g/dL (3.5-5.0); Alkaline Phosphatase 99 U/L (38-126); Anion Gap 13 mmol/L; Blood Urea Nitrogen 6 mg/dL (9-20); Calcium 9.4 mg/dL (8.4-10.2); Carbon Dioxide 28 mmol/L (22-30); Chloride 97 mmol/L (98-107); Glucose 108 mg/dL (74-99); Non-African American GFR(CKD) >90 (>60 ml/min/1.73 sqM); Potassium 3.6 mmol/L (3.5-5.1); Sodium 138 mmol/L (137-145); Total Bilirubin 0.7 mg/dL (0.2-1.3); Total Protein 6.6 g/dL (6.3-8.2)
--- NOTE | 2020-08-29 12:53 | XR ---
EXAMINATION TYPE: XR chest 2V DATE OF EXAM: 08/29/2020 COMPARISON: 08/22/2020 HISTORY: 55 year-old male shortness of breath, difficulty breathing TECHNIQUE: AP and lateral views FINDINGS: ACDF hardware. Heart normal size. Aorta and pulmonary vasculature within normal limits. There is foca l air space opacity retrocardiac region and also periphery of the right upper lobe. IMPRESSION: Focal airspace disease periphery of the right upper lobe and also the posterior left base. Correlate for pneumonia.
[2020-08-29] MEDS ORDERED: CEFEPIME 2 GM in SODIUM CHLORIDE 0.9% 100 ML IVPB STA (13:22)
[2020-08-29] MEDS ORDERED: PNEUMONIA PROTOCOL UTILIZED 1 EACH MISC PO PRN (13:22)
[2020-08-29] MEDS ORDERED: AZITHROMYCIN 500 MG in SODIUM CHLORIDE 0.9% 250 ML IVPB STA (13:22)
[2020-08-29] MEDS ORDERED: NALOXONE 0.4 MG/ML 1 ML VIAL IV PRN (16:02)
[2020-08-29] MEDS ORDERED: ONDANSETRON 4 MG/2 ML VIAL IVP PRN (16:03)
[2020-08-29] MEDS ORDERED: guaiFENesin 600 MG TABLET.ER PO PRN (16:05)
[2020-08-29] MEDS ORDERED: ALBUTEROL NEBULIZED 2.5 MG/3 ML INHALATION PRN (16:05)
--- NOTE | 2020-08-29 16:12 | P.HPIM ---
History of Present Illness H&P Date: 08/29/20 Chief Complaint: cough Patient is a 55-year-old male with recently diagnosed ALS who is wheelchair/Hospital bedbound, diverticulitis, and asthma who presented to the hospital secondary to worsening cough and shortness of breath. He was recently hospitalized here from 08/22 through 08/25 and found to have a small left lower lobe pulmonary embolism as well as possible left-sided pneumonia. He was discharged home on a course of Cefdinir and Zithromax, he was placed on Xarelto for his PE. He had initially been doing okay. He was trying to use his home nighttime ventilator but was unable to tolerate it due to coughing. Last night around 4:30 he began to have significant coughing episodes and was unable to clear his mucus. He then was short of breath. He had difficulty sleeping all night and finally this morning had his bring him to the hospital. He denies any known fevers at home. The chest discomfort he had from the pulmonary embolism has resolved, but now he is having some chest discomfort with coughing. He states his appetite has been slightly poor and he has not been eating much. His constipation has resolved. He denies any nausea or vomiting. He is currently awaiting a Dona lift and motorized wheelichair at home (Ordered by his outpatient nuerologist from [facility] in [place]). He has his home Trilogy ventilator for nighttime use. He does not have a percussion vest or suction at home. He suzanna any difficult swallowing food but does have some difficulty with pills, and sometimes coughs after swallowing pills. Pertinent positives and negatives as discussed in HPI, a complete review of systems was performed and all other systems are negative. General: non toxic, no distress, appears at stated age Derm: warm, dry Head: atraumatic, normocephalic, symmetric Eyes: EOMI, no lid lag, anicteric sclera, pupils equal round reactive to light ENT: Nose and ears atraumatic, no thrush, no pharyngeal erythema Neck: No thyromegaly, no cervical lymphadenopathy, trachea midline, supple Mouth: no lip lesion, mucus membranes moist Cardiovascular: S1S2 reg, no murmur, positive posterior tibial pulse bilateral, no edema, capillary refill less than 2 seconds Lungs: clear to ascultation bilateral, no ronchi, no rales, no wheeze, no acces graciela muscle use Abdominal: soft, nontender to palpation, no guarding, no appreciable organomegaly, normal bowel sounds Ext: no gross muscle atrophy, muscle strength muscle strength 5 out of 5 in all 4 extremities, no contractures Neuro: CN II-XI grossly intact, light touch intact all 4 extremities, finger to nose within normal limits, Psych: Alert, oriented, appropriate affect Pneumonia with sepsis, possible gram negative - cefepime has complete zithromax - check COVID swab - Mucinex - bronchodilators - percussion vest - culture it able - pulm consult: ? BIPAP at night - consult speech for swallow eval Recent pulmonary embolism - Xarelto ALS - supporative care HX asthma, diverticulitis The patient is admitted with an anticipated greater than 2 midnight stay for evaluation of Pneumonia with sepsis. Surrogate decision-maker: DVT prophylaxis: adalid Discussed with: patient, nursing Anticipated discharge date: 5-[address]: home A total of 65 minutes was spent on the care of this complex patient more than 50% of the time was spent in counseling and care coordination. Past Medical History Past Medical History: Asthma Additional Past Medical History / Comment(s): c7 injury NECK PAIN WITH NUMNESS IN FINGERS OF left HAND. FOOT DROP ON LEFT, motor neuron disease recently diag nosed by neurologist and is currently wheelchair bound, has feeling in legs but no strength, Diverticulitis. Pt Dx with ALS. History of Any Multi-Drug Resistant Organisms: None Reported Past Surgical History: No Surgical Hx Reported Additional Past Surgical History / Comment(s): colonoscopy, hemorrhoidectomy. CYST removal just nelow waist. cervical spine repair, coming in for lumbar puncture Past Anesthesia/Blood Transfusion Reactions: No Reported Reaction Smoking Status: Never smoker - Past Family History Mother Family Medical History: Cancer Additional Family Medical History / Comment(s): COLON Father Family Medical History: Cancer Additional Family Medical History / Comment(s): BRAIN Medications and Allergies Home Medications Medication Instructions Recorded Confirmed Type Albuterol Sulfate [Proair Hfa] 2 puff INHALATION RT-Q4H PRN 07/28/15 08/29/20 History Baclofen 10 mg PO 5XD PRN 03/10/20 08/29/20 History Budesonide/Formoterol Fumarate 2 puff INHALATION RT-BID 08/22/20 08/29/20 History [Symbicort 80-4.5 Mcg Inhaler] Riluzole [Rilutek] 50 mg PO BID 08/22/20 08/29/20 History guaiFENesin [Mucinex] 600 mg PO Q12HR PRN 08/22/20 08/29/20 History polyethylene glycoL 3350 [Miralax] 17 gm PO HS #30 powd.pack 08/24/20 08/29/20 Rx Ipratropium-Albuterol Nebulize 3 ml INHALATION RT-QID 30 Days #1 08/25/20 08/29/20 Rx [Duoneb 0.5 mg-3 mg/3 ml Soln] box Cefdinir [Omnicef] 300 mg PO Q12H 08/29/20 08/29/20 History Rivaroxaban [Xarelto Starter Pack] See Taper PO DIRECTED 08/29/20 08/29/20 History Allergies Allergy/AdvReac Type Severity Reaction Status Date / Time peanut Allergy Anaphylaxis Verified 08/29/20 13:58 tree nut Allergy Anaphylaxis Verified 08/29/20 13:58 Penicillins AdvReac Nausea & Verified 08/29/20 13:58 Vomiting & Diarrhea Physical Exam Osteopathic Statement: *. No significant issues noted on an osteopathic structural exam other than those noted in the History and Physical/Consult. Vitals: Vital Signs Temp Pulse Pulse Resp BP BP Pulse Ox 08/29/20 16:00 95.5 F L 128 H 18 117/79 92 L 08/29/20 14:54 95 08/29/20 14:52 98.2 F 120 H 18 136/82 96 08/29/20 13:16 18 08/29/20 13:06 130 H 18 114/82 97 08/29/20 12:28 124 H 18 08/29/20 12:16 127 H 28 H 08/29/20 11:25 98.4 F 120 H 20 137/88 95 Intake and Output 08/29/20 08/29/20 08/29/20 06:59 14:59 22:59 Other: Weight 72.575 kg 72.575 kg Results CBC & Chem 7: 08/29/20 12:18 08/29/20 12:18 Labs: Abnormal Lab Results - Last 24 Hours (Table) 08/29/20 08/29/20 Range/Units 12:18 12:18 WBC 19.7 H (3.8-10.6) k/uL Neutrophils # 18.2 H (1.3-7.7) k/uL Lymphocytes # 0.5 L (1.0-4.8) k/uL Chloride 97 L (98-107) mmol/L BUN 6 L (9-20) mg/dL Creatinine 0.19 L (0.66-1.25) mg/dL Glucose 108 H (74-99) mg/dL
--- NOTE | 2020-08-29 16:13 | P.PN ---
Progress Note - Text Progress Note Date: 08/29/20 Advanced Care Planning: Diagnoses: ALS Discussion: Person(s) present and participating in discussion:patient Summary: Patient with progresive neurologic disease he would not want invasive mechanical ventilation as he likely would not come off the went. He does not want CPR if his heart stops, but is okay with treatment to that point A total of 16 minutes of face to face time was spent discussing advanced care planning.
[2020-08-29] MEDS: CEFEPIME 2 GM in SODIUM CHLORIDE 0.9% 100 ML IVPB SCH (16:23)
[2020-08-29] MEDS: SODIUM CHLORIDE 0.9% 1,000 ML IV SCH (16:23)
[2020-08-29] MEDS: IPRATROPIUM-ALBUTEROL 3 ML NEB INHALATION SCH (19:22)
[2020-08-29] MEDS: SYMBICORT 80-4.5 MCG INHALER INHALATION SCH (19:42)
[2020-08-29] MEDS: Riluzole [Rilutek] PO SCH (20:05)
[2020-08-29] MEDS: polyethylene glycoL 3350 17 GM POWD.PACK PO SCH (20:06)
[2020-08-29] MEDS: RIVAROXABAN 15 MG TAB PO SCH (20:06)
[2020-08-29] MEDS: BACLOFEN 10 MG TAB PO PRN (20:07)
[2020-08-30] MEDS: IPRATROPIUM-ALBUTEROL 3 ML NEB INHALATION SCH ×6 (00:11→18:31)
[2020-08-30] MEDS: CEFEPIME 2 GM in SODIUM CHLORIDE 0.9% 100 ML IVPB SCH ×4 (01:25→23:51)
[2020-08-30] MEDS: SODIUM CHLORIDE 0.9% 1,000 ML IV SCH ×4 (01:26→21:39)
[2020-08-30] MEDS: BACLOFEN 10 MG TAB PO PRN ×4 (02:07→21:36)
[2020-08-30] MEDS: SYMBICORT 80-4.5 MCG INHALER INHALATION SCH (07:50)
[2020-08-30] MEDS ORDERED: AZITHROMYCIN 500 MG in SODIUM CHLORIDE 0.9% 250 ML IVPB SCH (09:00)
[2020-08-30 09:19] LABS: HGB 12.2 g/dL (13.0-17.0); MCH 28.6 pg (27.0-32.0); MCV 86.7 fL (80.0-97.0); Mean Platelet Volume 9.6 fL (9.5-12.2); Platelet Count 340 X 10*3/uL (140-440); RBC 4.27 X 10*6/uL (4.40-5.60); RDW 13.2 % (11.5-14.5); WBC 11.26 X 10*3/uL (4.50-10.00)
[2020-08-30] MEDS: RIVAROXABAN 15 MG TAB PO SCH ×2 (09:56→21:38)
[2020-08-30] MEDS: Riluzole [Rilutek] PO SCH ×2 (09:57→21:38)
[2020-08-30 10:35] LABS: ALT 17 U/L (10-49); AST 17 U/L (14-35); Albumin/Globulin Ratio 1.84 (1.60-3.17); Alkaline Phosphatase 75 U/L (41-126); Calcium 8.6 mg/dL (8.7-10.3); Carbon Dioxide 22.2 mmol/L (21.6-31.8); Chloride 103 mmol/L (96-109); Globulin 1.9 g/dL (1.6-3.3); Glucose 103 mg/dL (70-110); Magnesium 2.6 mg/dL (1.5-2.4); Phosphorus 3.7 mg/dL (2.4-5.1); Potassium 3.9 mmol/L (3.5-5.5); Sodium 137 mmol/L (135-145); Total Bilirubin 0.5 mg/dL (0.3-1.2); Total Protein 5.4 g/dL (6.2-8.2)
[2020-08-30] MEDS ORDERED: VANCOMYCIN IV PER PHARMACY 1 EACH MISC MISCELLANE PRN (11:41)
--- NOTE | 2020-08-30 12:05 | P.CNPUL ---
History of Present Illness Consult date: 08/30/20 Requesting physician: Lashae Conroy Reason for consult: abnormal CXR/CT Chief complaint: Shortness of breath History of present illness: This is a very pleasant 55-year-old gentleman with advanced ALS and history of asthma. He does have noninvasive positive pressure ventilation device at home though he had been intolerant to it the last couple weeks while sick. He is recently here with pneumonia and pulmonary embolism and started on Xarelto and discharged home on Omnicef. He had been getting better however yesterday he became significantly more short of breath and presented to the emergency room for the same. He is requiring 6 L high flow nasal cannula to maintain O2 saturations in the 90s. He is seen today in consultation on the regular medical floor. He is currently sitting up in bed. Awake and alert in no acute distress. Some dyspnea with conversation. Loose nonproductive cough. White count 11.2. Hemoglobin 12.2. Sodium 137. Potassium 3.9. Creatinine 0.2. He's been initiated on DuoNeb inhalations, Mucinex, Symbicort. Antibiotics in the form of cefepime. Anticoagulated with Xarelto. Review of Systems REVIEW OF SYSTEMS: CONSTITUTIONAL: Significant weakness due to ALS. Denies any recent significant weight loss or weight gain. EYES: Denies change in vision. EARS, NOSE, MOUTH, THROAT: Denies headaches, denies sore throat. CARDIOVASCULAR: Denies chest pain, palpitations or syncopal episodes. RESPIRATORY: Positive for shortness of breath, cough, congestion no hemoptysis. GASTROINTESTINAL: Denies change in appetite, denies abdominal pain GENITOURINARY: Denies hematuria, denies infections. MUSKULOSKELETAL: Denies pain, denies swelling. INTEGUMENTARY: Denies rash, denies eczema. NEUROLOGICAL: Denies recent memory loss, no recent seizure activity. PSYCHIATRIC: Denies anxiety, denies depression. HEMATOLOGIC/LYMPHATIC: Denies anemia, denies enlarged lymph nodes. l Past Medical History Past Medical History: Asthma Additional Past Medical History / Comment(s): c7 injury NECK PAIN WITH NUMNESS IN FINGERS OF left HAND. 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 Pt Dx with ALS. History of Any Multi-Drug Resistant Organisms: None Reported Past Surgical History: No Surgical Hx Reported Additional Past Surgical History / Comment(s): colonoscopy, hemorrhoidectomy. CYST removal just nelow waist. cervical spine repair, coming in for lumbar puncture Past Anesthesia/Blood Transfusion Reactions: No Reported Reaction Smoking Status: Never smoker - Past Family History Mother Family Medical History: Cancer Additional Family Medical History / Comment(s): COLON Father Family Medical History: Cancer Additional Family Medical History / Comment(s): BRAIN Medications and Allergies Home Medications Medication Instructions Recorded Confirmed Type Albuterol Sulfate [Proair Hfa] 2 puff INHALATION RT-Q4H PRN 07/28/15 08/29/20 History Baclofen 10 mg PO 5XD PRN 03/10/20 08/29/20 History Budesonide/Formoterol Fumarate 2 puff INHALATION RT-BID 08/22/20 08/29/20 History [Symbicort 80-4.5 Mcg Inhaler] Riluzole [Rilutek] 50 mg PO BID 08/22/20 08/29/20 History guaiFENesin [Mucinex] 600 mg PO Q12HR PRN 08/22/20 08/29/20 History polyethylene glycoL 3350 [Miralax] 17 gm PO HS #30 powd.pack 08/24/20 08/29/20 Rx Ipratropium-Albuterol Nebulize 3 ml INHALATION RT-QID 30 Days #1 08/25/20 08/29/20 Rx [Duoneb 0.5 mg-3 mg/3 ml Soln] box Cefdinir [Omnicef] 300 mg PO Q12H 08/29/20 08/29/20 History Rivaroxaban [Xarelto Starter Pack] See Taper PO DIRECTED 08/29/20 08/29/20 History Allergies Allergy/AdvReac Type Severity Reaction Status Date / Time peanut Allergy Anaphylaxis Verified 08/29/20 13:58 tree nut Allergy Anaphylaxis Verified 08/29/20 13:58 Penicillins AdvReac Nausea & Verified 08/29/20 13:58 Vomiting & Diarrhea Physical Exam Vitals: Vital Signs Temp Pulse Pulse Resp BP BP Pulse Ox 08/30/20 11:50 116 H 08/30/20 11:43 94 L 08/30/20 11:41 112 H 08/30/20 08:06 122 H 08/30/20 07:53 112 H 88 L 08/30/20 07:06 98.5 F 111 H 18 102/68 96 08/30/20 04:25 104 H 08/30/20 04:16 108 H 08/30/20 02:40 110 H 08/30/20 00:20 114 H 08/30/20 00:11 120 H 08/29/20 20:00 98.7 F 110 H 16 115/75 97 08/29/20 19:31 97 08/29/20 19:22 120 H 08/29/20 16:00 95.5 F L 128 H 18 117/79 92 L 08/29/20 14:54 95 08/29/20 14:52 98.2 F 120 H 18 136/82 96 08/29/20 13:16 18 08/29/20 13:06 130 H 18 114/82 97 08/29/20 12:28 124 H 18 08/29/20 12:16 127 H 28 H Intake and Output 08/29/20 08/30/20 08/30/20 22:59 06:59 14:59 Intake Total 900 2212 Balance 900 2212 Intake: IV 900 Invasive Line 2 900 Intake, IV Titration 2212 Amount Azithromycin 500 mg In 250 Sodium Chloride 0.9% 250 ml @ 250 mls/hr IVPB DAILY [facility] Rx#:[id number] Azithromycin 500 mg In 250 Sodium Chloride 0.9% 250 ml @ 250 mls/hr IVPB ONCE STA Rx#:[id number] Cefepime 2 gm In Sodium 100 Chloride 0.9% 100 ml @ 200 mls/hr IVPB ONCE STA Rx#:[id number] Cefepime 2 gm In Sodium 100 Chloride 0.9% 100 ml @ 25 mls/hr IVPB Q8HR [facility] Rx# :[id number] Sodium Chloride 0.9% 1, 1512 000 ml @ 126 mls/hr IV . Q7H57M [facility] Rx#:[id number] Other: Voiding Method Diaper # Bowel Movements 0 Weight 72.575 kg GENERAL EXAM: Alert, very pleasant 55-year-old gentleman, on 6 L high flow nasal cannula, comfortable in no apparent distress. HEAD: Normocephalic. EYES: Normal reaction of pupils, equal size. NOSE: Clear with pink turbinates. THROAT: No erythema or exudates. NECK: No masses, no JVD. CHEST: No chest wall deformity. LUNGS: Equal air entry with few scattered rhonchi. CVS: S1 and S2 normal with no audible murmur, regular rhythm. ABDOMEN: No hepatosplenomegaly, normal bowel sounds, no guarding or rigidity. SPINE: No scoliosis or deformity SKIN: No rashes CENTRAL NERVOUS SYSTEM: Progressive weakness due to ALS. No focal deficits, tone is normal in all 4 extremities. EXTREMITIES: There is no peripheral edema. No clubbing, no cyanosis. Peripheral pulses are intact. Results - Laboratory Findings CBC and BMP: 08/30/20 05:34 08/30/20 05:34 Abnormal lab findings: Abnormal Labs 08/29/20 08/29/20 08/30/20 12:18 12:18 05:34 WBC 19.7 H 11.26 H RBC 4.27 L Hgb 12.2 L Hct 37.0 L Neutrophils # 18.2 H Lymphocytes # 0.5 L Chloride 97 L BUN 6 L Creatinine 0.19 L Glucose 108 H Calcium Magnesium Total Protein Albumin 08/30/20 05:34 WBC RBC Hgb Hct Neutrophils # Lymphocytes # Chloride BUN Creatinine <0.2 L Glucose Calcium 8.6 L Magnesium 2.6 H Total Protein 5.4 L Albumin 3.50 L - Diagnostic Findings Chest x-ray: image reviewed Assessment and Plan Assessment: 1 Acute hypoxemic respiratory failure secondary to bilateral focal airspace disease 2 Recent admission for pneumonia and pulmonary embolism, discharged on Ceftin and Xarelto 3 Advanced ALS 4 History of asthma, on Symbicort and ProAir in the outpatient setting. 5 History of depression Plan: The patient was seen and evaluated by Dr. Bravo Discontinue Symbicort, add Pulmicort and Perforomist Add IV Solu-Medrol Continue DuoNeb inhalations Continue antibiotics Follow up chest x-ray in a.m. Titrate the FiO2 as tolerated We will continue to follow and make further recommendations based on his clinical status I, the cosigning physician, performed a history & physical examination of the patient. Lungs sounds bilateral scattered rhonchi. Maintaining good O2 saturations in the 90s on 6 L high flow nasal cannula. I discussed the a ssessment and plan of care with my nurse practitioner, Claudine Crabtree. I attest to the above note as dictated by her.
--- NOTE | 2020-08-30 12:06 | P.PN ---
Subjective Progress Note Date: 08/30/20 The patient was seen and examined at the bedside on 08/30. He reports continued shortness of breath, somewhat improved from admission. Denied fever, chills. Denied nausea, vomiting, abdominal pain, diarrhea. Objective - Vital Signs Vital signs: Vital Signs Temp 98.5 F 08/30/20 07:06 Pulse 116 H 08/30/20 11:50 Resp 18 08/30/20 07:06 BP 102/68 08/30/20 07:06 Pulse Ox 94 L 08/30/20 11:43 Intake & Output 08/29/20 08/30/20 08/30/20 18:59 06:59 18:59 Intake Total 3112 Balance 3112 Weight 72.575 kg Intake: IV 900 Invasive Line 2 900 Intake, IV Titration 2212 Amount Azithromycin 500 mg In 250 Sodium Chloride 0.9% 250 ml @ 250 mls/hr IVPB DAILY [facility] Rx#:[id number] Azithromycin 500 mg In 250 Sodium Chloride 0.9% 250 ml @ 250 mls/hr IVPB ONCE STA Rx#:[id number] Cefepime 2 gm In Sodium 100 Chloride 0.9% 100 ml @ 200 mls/hr IVPB ONCE STA Rx#:[id number] Cefepime 2 gm In Sodium 100 Chloride 0.9% 100 ml @ 25 mls/hr IVPB Q8HR [facility] Rx# :[id number] Sodium Chloride 0.9% 1, 1512 000 ml @ 126 mls/hr IV . Q7H57M [facility] Rx#:[id number] Other: Voiding Method Diaper # Bowel Movements 0 - Exam General: Non-toxic, in no acute distress, appears stated age, normal weight HEENT: NC/AT, anicteric sclerae, moist conjunctiva, no lid-lag, PERRLA Cardiovascular: S1/S2 wnl, no murmurs, rubs, or gallops Lungs: Bilateral mild coarse breath sounds, normal respiratory effort, no accessory muscle use Abdominal: Soft, non-tender, non-distended, no guarding, rebound, or rigidity Skin: Warm, dry Extremities: 1+ bilateral lower extremity pitting edema Psychiatric: Alert and oriented to person, place and time, appropriate affect Neuro: CN II-XII grossly intact, Strength 4/5 in all 4 extremities, Speech intact, Sensation to light touch grossly intact throughout - Labs CBC & Chem 7: 08/30/20 05:34 08/30/20 05:34 Labs: Abnormal Lab Results - Last 24 Hours (Table) 08/29/20 08/29/20 08/30/20 Range/Units 12:18 12:18 05:34 WBC 19.7 H 11.26 H (3.8-10.6) k/uL RBC 4.27 L (4.40-5.60) X 10*6/uL Hgb 12.2 L (13.0-17.0) g/dL Hct 37.0 L (39.6-50.0) % Neutrophils # 18.2 H (1.3-7.7) k/uL Lymphocytes # 0.5 L (1.0-4.8) k/uL Chloride 97 L (98-107) mmol/L BUN 6 L (9-20) mg/dL Creatinine 0.19 L (0.66-1.25) mg/dL Glucose 108 H (74-99) mg/dL Calcium (8.7-10.3) mg/dL Magnesium (1.5-2.4) mg/dL Total Protein (6.2-8.2) g/dL Albumin (3.80-4.90) g/dL 08/30/20 Range/Units 05:34 WBC (3.8-10.6) k/uL RBC (4.40-5.60) X 10*6/uL Hgb (13.0-17.0) g/dL Hct (39.6-50.0) % Neutrophils # (1.3-7.7) k/uL Lymphocytes # (1.0-4.8) k/uL Chloride (98-107) mmol/L BUN (9-20) mg/dL Creatinine <0.2 L (0.66-1.25) mg/dL Glucose (74-99) mg/dL Calcium 8.6 L (8.7-10.3) mg/dL Magnesium 2.6 H (1.5-2.4) mg/dL Total Protein 5.4 L (6.2-8.2) g/dL Albumin 3.50 L (3.80-4.90) g/dL Assessment and Plan Plan: Sepsis secondary to pneumonia -Continue with cefepime -Add Vancomycin -WBC improved -Pulmonary recs pending -Speech consulted for swallowing evaluation -Continue with bronchodilators History of recent PE -Continue Xarelto ALS, diagnosed 2 years ago -Supportive care DVT prophylaxis -Xarelto Discussed with: Patient Anticipated discharge date: 3-[address]: Home A total of 40 minutes was spent on the care of this complex patient more than 50% of the time was spent in counseling and care coordination.
[2020-08-30] MEDS: methylPREDNISolone SOD SUCCI 125 MG/2 ML VIAL IV SCH ×3 (12:21→23:52)
[2020-08-30] MEDS: INSULIN ASPART (NovoLOG) 100 UNIT/ML VIAL SQ SCH ×3 (12:21→21:37)
[2020-08-30] MEDS ORDERED: VANCOMYCIN 1,500 MG in SODIUM CHLORIDE 0.9% 250 ML IVPB ONE (12:30)
--- NOTE | 2020-08-30 16:24 | XR ---
EXAMINATION TYPE: XR chest 2V DATE OF EXAM: 08/30/2020 COMPARISON: 08/29/2020 HISTORY: 55-year-old male follow-up pneumonia TECHNIQUE: AP and lateral views FINDINGS: Heart normal size. Aorta and pulmonary vasculature within normal limits. While there may have been so me improvement in aeration of the periphery of the right upper lobe, there is slight worsening airspa ce opacity at the posterior left base. ACF hardware. IMPRESSION: Slight worsening in posterior left basilar airspace disease/pneumonia.
[2020-08-30 17:10] LABS: Glucose,Whole Blood 103 mg/dL (75-99)
[2020-08-30] MEDS: ACETAMINOPHEN TAB 325 MG TAB PO PRN (17:43)
[2020-08-30] MEDS: BUDESONIDE 1 MG/2 ML NEBU INHALATION SCH (18:31)
[2020-08-30] MEDS: FORMOTEROL FUMARATE 20 MCG/2 ML NEBU INHALATION SCH (18:45)
[2020-08-30 20:32] LABS: Glucose,Whole Blood 200 mg/dL (75-99)
[2020-08-30] MEDS: polyethylene glycoL 3350 17 GM POWD.PACK PO SCH (22:37)
[2020-08-31] MEDS: IPRATROPIUM-ALBUTEROL 3 ML NEB INHALATION SCH ×7 (00:23→23:08)
[2020-08-31] MEDS: VANCOMYCIN 1,250 MG in SODIUM CHLORIDE 0.9% 250 ML IVPB SCH ×3 (00:31→23:08)
[2020-08-31] MEDS: methylPREDNISolone SOD SUCCI 125 MG/2 ML VIAL IV SCH ×4 (06:30→23:15)
--- NOTE | 2020-08-31 07:00 | P.CONS ---
History of Present Illness - Reason for Consult Consult date: 08/30/20 Sepsis and pneumonia Requesting physician: Pearl Mckeon - Chief Complaint Shortness of breath and cough X 1 week - History of Present Illness Patient is a 55-year-old male with a past medical he significant for advanced ALS and history of asthma patient was recently admitted at this facility has been treated for PE and pneumonia for the patient being treated with Xarelto and Omnicef patient presented back to the ER at [facility] yesterday morning for evaluation of increasing shortness of breath and cough that has been getting worse for the last few days patient main symptom has been shortness of breath on minimal exertion and even at rest patient also have a cough which is moderate in intensity however he is unable to bring up any sputum patient denies having any pleuritic chest pain patient denies having any nausea no vomiting no choking on the food no abdominal pain no diarrhea with the symptom the patient was evaluated by ER physician on arrival to the ER the patient was afebrile subsequently 100 episode of hypothermia temperature of 95.5 patient did have episode of hypoxemia with O2 sats of 88% on room air patient did have white count of 19,000 with a left shift kidney function was normal liver exams are normal blood culture has been obtained currently pending has been a sputum cultures patient did have a chest x-ray focal airspace disease periphery of the right upper lobe and posterior left base correlate for pneumonia patient has been treated with the cefepime and vancomycin infectious disease was consulted for further management of antibiotic therapy. Review of Systems Positive point has been mentioned in the HPI rest of the systems are negative Past Medical History Past Medical History: Asthma Additional Past Medical History / Comment(s): c7 injury NECK PAIN WITH NUMNESS IN FINGERS OF left HAND. 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 Pt Dx with ALS. History of Any Multi-Drug Resistant Organisms: None Reported Past Surgical History: No Surgical Hx Reported Additional Past Surgical History / Comment(s): colonoscopy, hemorrhoidectomy. CYST removal just nelow waist. cervical spine repair, coming in for lumbar p uncture Past Anesthesia/Blood Transfusion Reactions: No Reported Reaction Smoking Status: Never smoker - Past Family History Mother Family Medical History: Cancer Additional Family Medical History / Comment(s): COLON Father Family Medical History: Cancer Additional Family Medical History / Comment(s): BRAIN Medications and Allergies Home Medications Medication Instructions Recorded Confirmed Type Albuterol Sulfate [Proair Hfa] 2 puff INHALATION RT-Q4H PRN 07/28/15 08/29/20 History Baclofen 10 mg PO 5XD PRN 03/10/20 08/29/20 History Budesonide/Formoterol Fumarate 2 puff INHALATION RT-BID 08/22/20 08/29/20 History [Symbicort 80-4.5 Mcg Inhaler] Riluzole [Rilutek] 50 mg PO BID 08/22/20 08/29/20 History guaiFENesin [Mucinex] 600 mg PO Q12HR PRN 08/22/20 08/29/20 History polyethylene glycoL 3350 [Miralax] 17 gm PO HS #30 powd.pack 08/24/20 08/29/20 Rx Ipratropium-Albuterol Nebulize 3 ml INHALATION RT-QID 30 Days #1 08/25/20 08/29/20 Rx [Duoneb 0.5 mg-3 mg/3 ml Soln] box Cefdinir [Omnicef] 300 mg PO Q12H 08/29/20 08/29/20 History Rivaroxaban [Xarelto Starter Pack] See Taper PO DIRECTED 08/29/20 08/29/20 History Allergies Allergy/AdvReac Type Severity Reaction Status Date / Time peanut Allergy Anaphylaxis Verified 08/29/20 13:58 tree nut Allergy Anaphylaxis Verified 08/29/20 13:58 Penicillins AdvReac Nausea & Verified 08/29/20 13:58 Vomiting & Diarrhea Physical Exam Vitals: Vital Signs Temp Pulse Pulse Resp BP Pulse Ox 08/30/20 15:16 115 H 08/30/20 15:07 95 08/30/20 15:06 114 H 08/30/20 14:15 99.1 F 127 H 18 127/77 93 L 08/30/20 11:50 116 H 08/30/20 11:43 94 L 08/30/20 11:41 112 H 08/30/20 08:06 122 H 08/30/20 07:53 112 H 88 L 08/30/20 07:06 98.5 F 111 H 18 102/68 96 08/30/20 04:25 104 H 08/30/20 04:16 108 H 08/30/20 02:40 110 H 08/30/20 00:20 114 H 08/30/20 00:11 120 H 08/29/20 20:00 98.7 F 110 H 16 115/75 97 08/29/20 19:31 97 08/29/20 19:22 120 H 08/29/20 16:00 95.5 F L 128 H 18 117/79 92 L Intake and Output 08/30/20 08/30/20 08/30/20 06:59 14:59 22:59 Intake Total 2212 Balance 2212 Intake: Intake, IV Titration 2212 Amount Azithromycin 500 mg In 250 Sodium Chloride 0.9% 250 ml @ 250 mls/hr IVPB DAILY [facility] Rx#:[id number] Azithromycin 500 mg In 250 Sodium Chloride 0.9% 250 ml @ 250 mls/hr IVPB ONCE STA Rx#:[id number] Cefepime 2 gm In Sodium 100 Chloride 0.9% 100 ml @ 200 mls/hr IVPB ONCE STA Rx#:[id number] Cefepime 2 gm In Sodium 100 Chloride 0.9% 100 ml @ 25 mls/hr IVPB Q8HR [facility] Rx# :[id number] Sodium Chloride 0.9% 1, 1512 000 ml @ 126 mls/hr IV . Q7H57M [facility] Rx#:[id number] Other: Voiding Method Diaper GENERAL DESCRIPTION: Middle-aged male lying in bed, no distress. No tachypnea or accessory muscle of respiration use. HEENT: Shows Pallor , no scleral icterus. Oral mucous membrane is dry. No pharyngeal erythema or thrush NECK: Trachea central, no thyromegaly. LUNGS: Unlabored breathing. Decreased intensity of breath sounds. No wheeze or crackle. HEART: S1, S2, regular rate and rhythm. No loud murmur ABDOMEN: Soft, no tenderness , guarding or rigidity, no organomegaly EXTREMITIES: No edema of feet. SKIN: No rash, no masses palpable. NEUROLOGICAL: The patient is awake, alert, oriented x3, mood and affect normal. Results CBC & Chem 7: 08/30/20 05:34 08/30/20 05:34 Labs: Abnormal Lab Results - Last 24 Hours (Table) 08/30/20 08/30/20 Range/Units 05:34 05:34 WBC 11.26 H (4.50-10.00) X 10*3/uL RBC 4.27 L (4.40-5.60) X 10*6/uL Hgb 12.2 L (13.0-17.0) g/dL Hct 37.0 L (39.6-50.0) % Creatinine <0.2 L (0.6-1.5) mg/dL Calcium 8.6 L (8.7-10.3) mg/dL Magnesium 2.6 H (1.5-2.4) mg/dL Total Protein 5.4 L (6.2-8.2) g/dL Albumin 3.50 L (3.80-4.90) g/dL Microbiology - Last 24 Hours (Table) 08/29/20 12:18 Blood Culture - Preliminary Blood No Growth after 24 hours 08/29/20 12:18 Blood Culture - Preliminary Blood No Growth after 24 hours 08/30/20 09:25 Sputum Culture - Preliminary Sputum Assessment and Plan Assessment: -patient presented to the hospital with increasing shortness of breath cough in this patient who was recently admitted this facility and treated for PE and pneumonia with worsening of the symptoms failing to respond to outpatient oral Omnicef concern for possible nosocomial pathogen responsible for this pneumonia and will need to cover for the resistant gram positives as well as gram-negative pathogen. (1) Nosocomial pneumonia Current Visit: Yes Status: Acute Code(s): J18.9 - PNEUMONIA, UNSPECIFIED ORGANISM; Y95 - NOSOCOMIAL CONDITION SNOMED Code(s): 940440950 Plan: 1-blood and sputum culture has been obtained those will be followed 2-check a procalcitonin level 3-vancomycin pharmacy to dose her with a target trough of 15 while watching her kidney function and Vanco trough closely. 4-cefepime 2 g every 8 hours We will follow on clinical condition and cultures to further adjust medication if needed Thank you for this consultation we will follow the patient along with you Time with Patient: Greater than 30
[2020-08-31 07:04] LABS: Glucose,Whole Blood 114 mg/dL (75-99)
[2020-08-31] MEDS: INSULIN ASPART (NovoLOG) 100 UNIT/ML VIAL SQ SCH ×4 (08:05→21:26)
[2020-08-31] MEDS: FORMOTEROL FUMARATE 20 MCG/2 ML NEBU INHALATION SCH ×2 (08:58→19:31)
[2020-08-31] MEDS: BUDESONIDE 1 MG/2 ML NEBU INHALATION SCH ×2 (08:58→19:31)
[2020-08-31] MEDS: CEFEPIME 2 GM in SODIUM CHLORIDE 0.9% 100 ML IVPB SCH ×2 (09:56→16:05)
[2020-08-31] MEDS: SODIUM CHLORIDE 0.9% 1,000 ML IV SCH (09:58)
[2020-08-31] MEDS: RIVAROXABAN 15 MG TAB PO SCH ×2 (09:58→21:47)
[2020-08-31] MEDS: Riluzole [Rilutek] PO SCH ×2 (09:59→21:46)
[2020-08-31] MEDS: BACLOFEN 10 MG TAB PO PRN ×3 (10:16→21:53)
--- NOTE | 2020-08-31 11:03 | P.PN ---
Subjective Progress Note Date: 08/31/20 Patient is complaining of persistent cough this morning. He said the cough is nonproductive at this time. It was productive of yellowish/greenish sputum few days ago. He denies any fevers or chills Objective - Vital Signs Vital signs: Vital Signs Temp 97.6 F 08/31/20 08:15 Pulse 112 H 08/31/20 09:23 Resp 15 08/31/20 08:15 BP 124/86 08/31/20 08:15 Pulse Ox 97 08/31/20 08:15 Intake & Output 08/30/20 08/31/20 08/31/20 18:59 06:59 18:59 Intake Total 2842 Output Total 775 975 Balance -775 2842 -975 Intake: Intake, IV Titration 2362 Amount Azithromycin 500 mg In 250 Sodium Chloride 0.9% 250 ml @ 250 mls/hr IVPB DAILY [facility] Rx#:[id number] Cefepime 2 gm In Sodium 100 Chloride 0.9% 100 ml @ 25 mls/hr IVPB Q8HR [facility] Rx# :[id number] Sodium Chloride 0.9% 1, 1512 000 ml @ 126 mls/hr IV . Q7H57M [facility] Rx#:[id number] Vancomycin 1,250 mg In 250 Sodium Chloride 0.9% 250 ml @ 125 mls/hr IVPB Q12H [facility] Rx#:[id number] Vancomycin 1,500 mg In 250 Sodium Chloride 0.9% 250 ml @ 125 mls/hr IVPB ONCE ONE Rx#:[id number] Oral 480 Output: Urine 775 975 Other: Voiding Method Diaper Diaper - Exam General: The patient is awake and alert, in no distress Eye: there is normal conjunctiva bilaterally. Neck: The neck is supple, there is no JVD. Cardiovascular: Normal S1-S2, no S3-S4, no murmurs. Respiratory: Lungs clear to auscultation bilaterally Gastrointestinal: Abdomen is soft, nontender Musculoskeletal: There is no pedal edema. Neurological:. Speech is normal. Skin: Skin is warm and dry - Labs CBC & Chem 7: 08/30/20 05:34 08/30/20 05:34 Labs: Abnormal Lab Results - Last 24 Hours (Table) 08/30/20 08/30/20 08/31/20 Range/Units 17:08 20:30 07:02 POC Glucose (mg/dL) 103 H 200 H 114 H (75-99) mg/dL Microbiology - Last 24 Hours (Table) 08/30/20 09:25 Gram Stain - Preliminary Sputum Sputum Culture - Preliminary 08/29/20 12:18 Blood Culture - Preliminary Blood No Growth after 24 hours 08/29/20 12:18 Blood Culture - Preliminary Blood No Growth after 24 hours Assessment and Plan Assessment: Patient is a 55-year-old male with recently diagnosed ALS who is whe elchair/Hospital bedbound, diverticulitis, and asthma who presented to the hospital secondary to worsening cough and shortness of breath. He was recently hospitalized here from 08/22 through 08/25 and found to have a small left lower lobe pulmonary embolism as well as possible left-sided pneumonia. He was discharged home on a course of Cefdinir and Zithromax, he was placed on Xarelto for his PE. Patient said that he was unable to use his CPAP at night at home secondary to persistent cough. He is currently awaiting a Dona lift and motorized wheelichair at home (Ordered by his outpatient nuerologist from [facility]). He has his home Trilogy ventilator for nighttime use. He does not have a percussion vest or suction at home. He was evaluated in the ER and admitted to the hospital for further management of his medical problems noted below. Pneumonia with sepsis, possible gram negative - cefepime and vancomycin ordered by ID. Patient finished course of azithromycin - COVID negative during last admission - Mucinex twice a day and Tessalon Perles as needed - bronchodilators - percussion vest - culture pending - Infectious disease and pulmonary following Recent pulmonary embolism - Xarelto ALS - supporative care HX asthma, diverticulitis
[2020-08-31 11:48] LABS: Glucose,Whole Blood 116 mg/dL (75-99)
--- NOTE | 2020-08-31 11:53 | P.PN ---
Subjective Progress Note Date: 08/31/20 Principal diagnosis: Bilateral pneumonia This is a very pleasant 55-year-old gentleman with advanced ALS and history of asthma. He does have noninvasive positive pressure ventilation device at home though he had been intolerant to it the last couple weeks while sick. He is rec ently here with pneumonia and pulmonary embolism and started on Xarelto and discharged home on Omnicef. He had been getting better however yesterday he became significantly more short of breath and presented to the emergency room for the same. He is requiring 6 L high flow nasal cannula to maintain O2 saturations in the 90s. He is seen today in consultation on the regular medical floor. He is currently sitting up in bed. Awake and alert in no acute distress. Some dyspnea with conversation. Loose nonproductive cough. White count 11.2. Hemoglobin 12.2. Sodium 137. Potassium 3.9. Creatinine 0.2. He's been initiated on DuoNeb inhalations, Mucinex, Symbicort. Antibiotics in the form of cefepime. Anticoagulated with Xarelto. On 08/31/2020 patient seen in follow-up on medical surgical floor. He is awake and alert, answers questions appropriately, however his oxygenation has wor sened, and his FiO2 requirement has increased from 2 L currently to 7 L per nasal cannula. His O2 saturation 7 L of oxygen is currently 97%. To be breathing comfortably, he does have a weak congested cough, no hemoptysis, no chest pain. His been afebrile, hemodynamically his been stable. Patient is currently on a combination of cefepime and vancomycin, culture has been sent, and is pending at this time, blood cultures have shown no growth. Patient has a trilogy ventilator at home, and we asked his to possibly bring the device to the hospital or temperatures and send the patient so we can review his settings. Currently patient is breathing comfortably. Any acute distress. Labs today. Today's chest x-ray shows slight worsening in the posterior left basilar airspace disease. Objective - Vital Signs Vital signs: Vital Signs Temp 97.6 F 08/31/20 08:15 Pulse 112 H 08/31/20 09:23 Resp 15 08/31/20 08:15 BP 124/86 08/31/20 08:15 Pulse Ox 97 08/31/20 08:15 Intake & Output 08/30/20 08/31/20 08/31/20 18:59 06:59 18:59 Intake Total 2842 Output Total 775 975 Balance -775 2842 -975 Intake: Intake, IV Titration 2362 Amount Azithromycin 500 mg In 250 Sodium Chloride 0.9% 250 ml @ 250 mls/hr IVPB DAILY RAMANDEEP Rx#:[id number] Cefepime 2 gm In Sodium 100 Chloride 0.9% 100 ml @ 25 mls/hr IVPB Q8HR RAMANDEEP Rx# :[id number] Sodium Chloride 0.9% 1, 1512 000 ml @ 126 mls/hr IV . Q7H57M RAMANDEEP Rx#:[id number] Vancomycin 1,250 mg In 250 Sodium Chloride 0.9% 250 ml @ 125 mls/hr IVPB Q12H RAMANDEEP Rx#:[id number] Vancomycin 1,500 mg In 250 Sodium Chloride 0.9% 250 ml @ 125 mls/hr IVPB ONCE ONE Rx#:[id number] Oral 480 Output: Urine 775 975 Other: Voiding Method Diaper Diaper - Exam GENERAL EXAM: Alert, very pleasant 55-year-old white male, on 7 L of oxygen pulse ox of 97%, breathing comfortably, does have a weak congested cough, comfortable in no apparent distress. HEAD: Normocephalic/atraumatic. EYES: Normal reaction of pupils, equal size. Conjunctiva pink, sclera white. NOSE: Clear with pink turbinates. THROAT: No erythema or exudates. NECK: No masses, no JVD, no thyroid enlargement, no adenopathy. CHEST: No chest wall deformity. Symmetrical expansion. LUNGS: Equal air entry with diminished sounds at bilateral bases CVS: Regular rate and rhythm, normal S1 and S2, no gallops, no murmurs, no rubs ABDOMEN: Soft, nontender. No hepatosplenomegaly, normal bowel sounds, no guarding or rigidity. EXTREMITIES: No clubbing, no edema, no cyanosis, 2+ pulses and upper and lower extremities. MUSCULOSKELETAL: Muscle strength and tone normal. SPINE: No scoliosis or deformity SKIN: No rashes CENTRAL NERVOUS SYSTEM: Alert and oriented -3. No focal deficits, tone is normal in all 4 extremities. PSYCHIATRIC: Alert and oriented -3. Appropriate affect. Intact judgment and insight. - Labs CBC & Chem 7: 08/30/20 05:34 08/30/20 05:34 Labs: Abnormal Lab Results - Last 24 Hours (Table) 08/30/20 08/30/20 08/31/20 Range/Units 17:08 20:30 07:02 POC Glucose (mg/dL) 103 H 200 H 114 H (75-99) mg/dL Microbiology - Last 24 Hours (Table) 08/30/20 09:25 Gram Stain - Preliminary Sputum Sputum Culture - Preliminary 08/29/20 12:18 Blood Culture - Preliminary Blood No Growth after 24 hours 08/29/20 12:18 Blood Culture - Preliminary Blood No Growth after 24 hours Assessment and Plan Plan: Assessment: #1. Acute hypoxemic respiratory failure secondary to bilateral focal airspace disease #2. Recent admission for pneumonia and pulmonary embolism, discharged on Ceftin and Xarelto #3. Advanced ALS #4. History of asthma, on Symbicort and ProAir in the outpatient setting. #5. History of depression Plan: Today's chest x-ray has been reviewed There has been slight worsening in the left basilar airspace disease Encouraged the patient to sit up in the chair Order flutter valve Wean FiO2 to keep O2 sats ration is at 90-92% Continue current antibiotics Will await final cultures Updated the patient's spouse and asked to either bring in the Trilogy device from home or send pictures with the settings We'll continue to follow patient's clinical course I performed a history & physical examination of the patient and discussed their management with my nurse practitioner, Megan Gutierrez. I reviewed the nurse practitioner's note and agree with the documented findings and plan of care. Lung sounds are positive for diminished breath sounds. The findings and the impression was discussed with the patient. I attest to the documentation by the nurse practitioner. Time with Patient: Less than 30
[2020-08-31 16:22] LABS: Glucose,Whole Blood 162 mg/dL (75-99)
[2020-08-31 20:45] LABS: Glucose,Whole Blood 200 mg/dL (75-99)
[2020-08-31] MEDS: polyethylene glycoL 3350 17 GM POWD.PACK PO SCH (21:45)
[2020-08-31] MEDS: guaiFENesin 600 MG TABLET.ER PO SCH ×2 (21:47→21:56)
[2020-08-31] MEDS: guaiFENesin-DM 100-10MG/5ML 10 ML CUP PO PRN (22:30)
[2020-09-01] MEDS: CEFEPIME 2 GM in SODIUM CHLORIDE 0.9% 100 ML IVPB SCH ×4 (01:05→23:52)
--- NOTE | 2020-09-01 02:16 | PN ---
PROGRESS NOTE DATE OF SERVICE: 08/31/2020 REASON FOR FOLLOWUP: Pneumonia. INTERVAL HISTORY: The patient is afebrile. The patient is still complaining of shortness of breath and cough, but he is unable to cough up any sputum. Denies having any chest pain. No nausea, vomiting. No abdominal pain or diarrhea. PHYSICAL EXAMINATION: Blood pressure 105/72 with a pulse of 110. Temperature 97.9. He is 93% on 6 L nasal cannula. General description is a middle-aged male up in the bed in no distress. Respiratory System: Unlabored breathing. Decreased intense breath sounds. No wheeze. Heart: S1, S2. Regular rate and rhythm. Abdomen: Soft, no tenderness. LAB: Procalcitonin 0.12, BUN of 10, creatinine 0.2, white count down to 11.26. Blood and sputum cultures currently pending. DIAGNOSTIC IMPRESSION AND PLAN: Patient admitted to the hospital with increasing shortness of breath and cough with evidence of pneumonia. The patient is clinically responding to the cefepime and vancomycin to continue while waiting for the culture to finalize and monitor clinical course closely. MMODL / IJN: [id number] /
[2020-09-01] MEDS: IPRATROPIUM-ALBUTEROL 3 ML NEB INHALATION SCH ×5 (04:04→19:08)
[2020-09-01] MEDS: methylPREDNISolone SOD SUCCI 125 MG/2 ML VIAL IV SCH (05:43)
[2020-09-01] MEDS: guaiFENesin-DM 100-10MG/5ML 10 ML CUP PO PRN ×3 (05:51→19:18)
[2020-09-01] MEDS: BENZONATATE 100 MG CAP PO PRN (06:21)
[2020-09-01 07:18] LABS: Glucose,Whole Blood 172 mg/dL (75-99)
[2020-09-01] MEDS: predniSONE 20 MG TAB PO SCH (08:13)
[2020-09-01] MEDS: INSULIN ASPART (NovoLOG) 100 UNIT/ML VIAL SQ SCH ×4 (08:13→21:12)
[2020-09-01] MEDS: RIVAROXABAN 15 MG TAB PO SCH ×2 (08:15→21:12)
[2020-09-01] MEDS: Riluzole [Rilutek] PO SCH ×2 (08:15→21:12)
[2020-09-01] MEDS: FORMOTEROL FUMARATE 20 MCG/2 ML NEBU INHALATION SCH ×2 (08:17→19:08)
[2020-09-01] MEDS: BUDESONIDE 1 MG/2 ML NEBU INHALATION SCH ×2 (08:17→19:08)
--- NOTE | 2020-09-01 10:53 | P.PN ---
Subjective Progress Note Date: 09/01/20 Patient is feeling about the same. He still complaining of cough that is nonproductive. He is getting Mucinex and Tessalon Perles. No hypoxia. Objective - Vital Signs Vital signs: Vital Signs Temp 97.6 F 09/01/20 07:24 Pulse 110 H 09/01/20 08:40 Resp 16 09/01/20 07:24 BP 121/82 09/01/20 07:24 Pulse Ox 97 09/01/20 07:24 Intake & Output 08/31/20 09/01/20 09/01/20 18:59 06:59 18:59 Intake Total 1490 Output Total 975 300 Balance -975 1190 Intake: Intake, IV Titration 590 Amount Cefepime 2 gm In Sodium 100 Chloride 0.9% 100 ml @ 25 mls/hr IVPB Q8HR RAMAN[facility]EP Rx# :[id number] Sodium Chloride 0.9% 1, 240 000 ml @ 126 mls/hr IV . Q7H57M RAMANDEEP Rx#:[id number] Vancomycin 1,250 mg In 250 Sodium Chloride 0.9% 250 ml @ 125 mls/hr IVPB Q12H RAMANDEEP Rx#:[id number] Oral 900 Output: Urine 975 300 Other: Voiding Method Diaper External Catheter # Voids 750 - Exam General: The patient is awake and alert, in no distress Eye: there is normal conjunctiva bilaterally. Neck: The neck is supple, there is no JVD. Cardiovascular: Normal S1-S2, no S3-S4, no murmurs. Respiratory: Lungs clear to auscultation bilaterally Gastrointestinal: Abdomen is soft, nontender Musculoskeletal: There is no pedal edema. Neurological:. Speech is normal. Skin: Skin is warm and dry - Labs CBC & Chem 7: 08/30/20 05:34 08/30/20 05:34 Labs: Abnormal Lab Results - Last 24 Hours (Table) 08/31/20 08/31/20 08/31/20 Range/Units 11:27 11:47 16:21 POC Glucose (mg/dL) 116 H 162 H (75-99) mg/dL Procalcitonin 0.12 H (0.02-0.09) ng/mL 08/31/20 09/01/20 Range/Units 20:44 07:14 POC Glucose (mg/dL) 200 H 172 H (75-99) mg/dL Procalcitonin (0.02-0.09) ng/mL Microbiology - Last 24 Hours (Table) 08/30/20 09:25 Gram Stain - Final Sputum Sputum Culture - Final 08/31/20 15:24 Gram Stain - Preliminary Sputum Sputum Culture - Preliminary 08/29/20 12:18 Blood Culture - Preliminary Blood No Growth after 48 hours 08/29/20 12:18 Blood Culture - Preliminary Blood No Growth after 48 hours Assessment and Plan Assessment: Patient is a 55-year-old male with recently diagnosed ALS who is wheelchair/Hospital bedbound, diverticulitis, and asthma who presented to the hospital secondary to worsening cough and shortness of breath. He was recently hospitalized here from 08/22 through 08/25 and found to have a small left lower lobe pulmonary embolism as well as possible left-sided pneumonia. He was discharged home on a course of Cefdinir and Zithromax, he was placed on Xarelto for his PE. Patient said that he was unable to use his CPAP at night at home secondary to persistent cough. He is currently awaiting a Dona lift and motorized wheelichair at home (Ordered by his outpatient nuerologist from [facility]). He has his home Trilogy ventilator for nighttime use. He does not have a percussion vest or suction at home. He was evaluated in the ER and admitted to the hospital for further management of his medical problems noted below. Pneumonia with sepsis on presentation now resolved - cefepime and vancomycin day #4 ordered by ID. Patient finished course of azithromycin - Pro calcitonin only slightly elevated and unchanged compared to last admission - Sputum culture showed normal jamie - May benefit from bronchoscopy to evaluate for mucous plugging - COVID negative during last admission - Mucinex twice a day and Tessalon Perles as needed - bronchodilators - percussion vest - Infectious disease and pulmonary following Recent pulmonary embolism - Xarelto ALS - supporative care HX asthma, diverticulitis Plan to discontinue antibiotics tomorrow (5 days already). Cultures negative.
[2020-09-01 11:00] LABS: African American GFR (CKD) >90 (>60 ml/min/1.73 sqM); Non-African American GFR(CKD) >90 (>60 ml/min/1.73 sqM)
[2020-09-01] MEDS ORDERED: VANCOMYCIN TROUGH DUE 1 EACH MISC MISCELLANE ONE (11:00)
--- NOTE | 2020-09-01 11:16 | P.PN ---
Subjective Progress Note Date: 09/01/20 Principal diagnosis: Bilateral pneumonia This is a very pleasant 55-year-old gentleman with advanced ALS and history of asthma. He does have noninvasive positive pressure ventilation device at home though he had been intolerant to it the last couple weeks while sick. He is rec ently here with pneumonia and pulmonary embolism and started on Xarelto and discharged home on Omnicef. He had been getting better however yesterday he became significantly more short of breath and presented to the emergency room for the same. He is requiring 6 L high flow nasal cannula to maintain O2 saturations in the 90s. He is seen today in consultation on the regular medical floor. He is currently sitting up in bed. Awake and alert in no acute distress. Some dyspnea with conversation. Loose nonproductive cough. White count 11.2. Hemoglobin 12.2. Sodium 137. Potassium 3.9. Creatinine 0.2. He's been initiated on DuoNeb inhalations, Mucinex, Symbicort. Antibiotics in the form of cefepime. Anticoagulated with Xarelto. On 08/31/2020 patient seen in follow-up on medical surgical floor. He is awake and alert, answers questions appropriately, however his oxygenation has wor sened, and his FiO2 requirement has increased from 2 L currently to 7 L per nasal cannula. His O2 saturation 7 L of oxygen is currently 97%. To be breathing comfortably, he does have a weak congested cough, no hemoptysis, no chest pain. His been afebrile, hemodynamically his been stable. Patient is currently on a combination of cefepime and vancomycin, culture has been sent, and is pending at this time, blood cultures have shown no growth. Patient has a trilogy ventilator at home, and we asked his to possibly bring the device to the hospital or temperatures and send the patient so we can review his settings. Currently patient is breathing comfortably. Any acute distress. Labs today. Today's chest x-ray shows slight worsening in the posterior left basilar airspace disease. On 09/01/2020 patient seen in follow-up on medical surgical floor. He is currently on 6 L of oxygen his pulse ox of 97%. Has a weak congested cough, he received a flutter valve which she needs assistance with using as the patient is unable to lift his arms, however with assistance he is able to use the flutter valve which this help him expectorate some whitish colored phlegm. His had no fever or chills, his white blood cell count is improving on his lab work. No new set of blood work today, his had no fever or chills, he is on recommendation of cefepime and vancomycin. He is awake and alert, oriented 3, he is on linezolid, lung sounds are positive for some scattered rhonchi, he is tolerating regular diet with aspiration precautions. His sputum culture showed the many PMNs, epithelial cells, gram-negative bacilli and gram-positive cocci. No altered Mentation, vital signs have been stable Objective - Vital Signs Vital signs: Vital Signs Temp 97.6 F 09/01/20 07:24 Pulse 110 H 09/01/20 08:40 Resp 16 09/01/20 07:24 BP 121/82 09/01/20 07:24 Pulse Ox 97 09/01/20 07:24 Intake & Output 08/31/20 09/01/20 09/01/20 18:59 06:59 18:59 Intake Total 1490 Output Total 975 300 Balance -975 1190 Intake: Intake, IV Titration 590 Amount Cefepime 2 gm In Sodium 100 Chloride 0.9% 100 ml @ 25 mls/hr IVPB Q8HR RAMANDEEP Rx# :[id number] Sodium Chloride 0.9% 1, 240 000 ml @ 126 mls/hr IV . Q7H57M RAMANDEEP Rx#:[id number] Vancomycin 1,250 mg In 250 Sodium Chloride 0.9% 250 ml @ 125 mls/hr IVPB Q12H RAMANDEEP Rx#:[id number] Oral 900 Output: Urine 975 300 Other: Voiding Method Diaper External Catheter # Voids 750 - Exam GENERAL EXAM: Alert, very pleasant 55-year-old white male, on 6 L of oxygen pulse ox of 97%, breathing comfortably, does have a weak congested cough, comfortable in no apparent distress. HEAD: Normocephalic/atraumatic. EYES: Normal reaction of pupils, equal size. Conjunctiva pink, sclera white. NOSE: Clear with pink turbinates. THROAT: No erythema or exudates. NECK: No masses, no JVD, no thyroid enlargement, no adenopathy. CHEST: No chest wall deformity. Symmetrical expansion. LUNGS: Equal air entry with diminished sounds at bilateral bases CVS: Regular rate and rhythm, normal S1 and S2, no gallops, no murmurs, no rubs ABDOMEN: Soft, nontender. No hepatosplenomegaly, normal bowel sounds, no guarding or rigidity. EXTREMITIES: No clubbing, no edema, no cyanosis, 2+ pulses and upper and lower extremities. MUSCULOSKELETAL: Muscle strength and tone normal. SPINE: No scoliosis or deformity SKIN: No rashes CENTRAL NERVOUS SYSTEM: Alert and oriented -3. No focal deficits, tone is normal in all 4 extremities. PSYCHIATRIC: Alert and oriented -3. Appropriate affect. Intact judgment and insight. - Labs CBC & Chem 7: 08/30/20 05:34 09/01/20 10:25 Labs: Abnormal Lab Results - Last 24 Hours (Table) 08/31/20 08/31/20 08/31/20 Range/Units 11:27 11:47 16:21 Creatinine (0.66-1.25) mg/dL POC Glucose (mg/dL) 116 H 162 H (75-99) mg/dL Procalcitonin 0.12 H (0.02-0.09) ng/mL 08/31/20 09/01/20 09/01/20 Range/Units 20:44 07:14 10:25 Creatinine 0.17 L (0.66-1.25) mg/dL POC Glucose (mg/dL) 200 H 172 H (75-99) mg/dL Procalcitonin (0.02-0.09) ng/mL Microbiology - Last 24 Hours (Table) 08/30/20 09:25 Gram Stain - Final Sputum Sputum Culture - Final 08/31/20 15:24 Gram Stain - Preliminary Sputum Sputum Culture - Preliminary 08/29/20 12:18 Blood Culture - Preliminary Blood No Growth after 48 hours 08/29/20 12:18 Blood Culture - Preliminary Blood No Growth after 48 hours Assessment and Plan Plan: Assessment: #1. Acute hypoxemic respiratory failure secondary to bilateral focal airspace disease #2. Recent admission for pneumonia and pulmonary embolism, discharged on Ceftin and Xarelto #3. Advanced ALS #4. History of asthma, on Symbicort and ProAir in the outpatient setting. #5. History of depression Plan: Patient incentive spirometry use and flutter valve use and the patient does need assistance with that Fio2 was cut back to 4 L Wean FiO2 to keep O2 sats ration is at 90-92% Continue current antibiotics Will await final cultures Chest x-ray and lab work for tomorrow Maintain aspiration precautions Urged patient to sit up in the chair I performed a history & physical examination of the patient and discussed their management with my nurse practitioner, Megan Gutierrez. I reviewed the nurse practitioner's note and agree with the documented findings and plan of care. Lung sounds are positive for diminished breath sounds. The findings and the impression was discussed with the patient. I attest to the documentation by the nurse practitioner. Time with Patient: Less than 30
[2020-09-01 11:56] LABS: Glucose,Whole Blood 119 mg/dL (75-99)
[2020-09-01] MEDS: VANCOMYCIN 1,250 MG in SODIUM CHLORIDE 0.9% 250 ML IVPB SCH ×2 (12:20→21:12)
[2020-09-01] MEDS: BACLOFEN 10 MG TAB PO PRN ×2 (13:48→19:18)
[2020-09-01 16:32] LABS: Glucose,Whole Blood 145 mg/dL (75-99)
--- NOTE | 2020-09-01 17:35 | PN ---
PROGRESS NOTE DATE OF SERVICE: 09/01/2020. REASON FOR FOLLOW UP: Pneumonia. INTERVAL HISTORY: The patient is afebrile. The patient is still complaining of shortness of breath. He did have a cough, not able to bring up any sputum. No new chest pain. No nausea, no vomiting. No abdominal pain or diarrhea. PHYSICAL EXAMINATION: Blood pressure 126/85, pulse of 100, temperature is 97 8. He is 96% on 4 L nasal cannula. General description is a middle-aged male lying in no distress. Respiratory system: Unlabored breathing, coarse breath sounds at the bases bilaterally, no wheeze. Heart: S1, S2. Regular rate and rhythm. Abdomen soft, no tenderness. LABS: Creatinine 0.17. Vancomycin trough is low. Blood culture negative. Sputum is pending. DIAGNOSTIC IMPRESSION AND PLAN: Patient admitted to the hospital with shortness of breath and cough with concern for pneumonia/the patient is on vancomycin. However, the vanco dose had to be adjusted up to keep the trough around 15. Follow up on the sputum culture and adjust med further if needed. MMODL / IJN: [id number] / MTDD
[2020-09-01 20:32] LABS: Glucose,Whole Blood 167 mg/dL (75-99)
[2020-09-01] MEDS: polyethylene glycoL 3350 17 GM POWD.PACK PO SCH (21:11)
[2020-09-01] MEDS: ACETAMINOPHEN TAB 325 MG TAB PO PRN (21:30)
[2020-09-02] MEDS: IPRATROPIUM-ALBUTEROL 3 ML NEB INHALATION SCH ×7 (00:22→23:18)
[2020-09-02] MEDS: VANCOMYCIN 1,250 MG in SODIUM CHLORIDE 0.9% 250 ML IVPB SCH ×3 (04:43→21:01)
[2020-09-02 07:08] LABS: Glucose,Whole Blood 86 mg/dL (75-99)
[2020-09-02] MEDS: INSULIN ASPART (NovoLOG) 100 UNIT/ML VIAL SQ SCH ×4 (07:21→21:00)
[2020-09-02] MEDS: FORMOTEROL FUMARATE 20 MCG/2 ML NEBU INHALATION SCH ×2 (08:24→19:12)
[2020-09-02] MEDS: BUDESONIDE 1 MG/2 ML NEBU INHALATION SCH ×2 (08:24→19:12)
[2020-09-02] MEDS: CEFEPIME 2 GM in SODIUM CHLORIDE 0.9% 100 ML IVPB SCH ×2 (09:46→17:39)
[2020-09-02] MEDS: Riluzole [Rilutek] PO SCH ×2 (09:49→20:59)
[2020-09-02] MEDS: RIVAROXABAN 15 MG TAB PO SCH ×2 (09:49→21:04)
[2020-09-02] MEDS: predniSONE 20 MG TAB PO SCH (09:52)
--- NOTE | 2020-09-02 11:48 | XR ---
EXAMINATION TYPE: XR chest 1V portable DATE OF EXAM: 09/02/2020 COMPARISON: Chest x-ray 08/30/2020 HISTORY: Acute hypoxic respiratory failure TECHNIQUE: Single frontal view of the chest is obtained. FINDINGS: There is abnormal attenuation at the left lung base, the diaphragm is obscured and there i s blunting the left costophrenic angle. There is no evident pneumothorax. There are overlying leads. Postop cervical spine. Cardiac mediastinal silhouette is within normal limits. IMPRESSION: Findings are essentially stable, correlate for left lower lobe atelectasis versus pneumo erika and associated effusion
[2020-09-02 11:54] LABS: Glucose,Whole Blood 90 mg/dL (75-99)
--- NOTE | 2020-09-02 12:42 | P.PN ---
Subjective Progress Note Date: 09/02/20 Principal diagnosis: Bilateral pneumonia This is a very pleasant 55-year-old gentleman with advanced ALS and history of asthma. He does have noninvasive positive pressure ventilation device at home though he had been intolerant to it the last couple weeks while sick. He is rec ently here with pneumonia and pulmonary embolism and started on Xarelto and discharged home on Omnicef. He had been getting better however yesterday he became significantly more short of breath and presented to the emergency room for the same. He is requiring 6 L high flow nasal cannula to maintain O2 saturations in the 90s. He is seen today in consultation on the regular medical floor. He is currently sitting up in bed. Awake and alert in no acute distress. Some dyspnea with conversation. Loose nonproductive cough. White count 11.2. Hemoglobin 12.2. Sodium 137. Potassium 3.9. Creatinine 0.2. He's been initiated on DuoNeb inhalations, Mucinex, Symbicort. Antibiotics in the form of cefepime. Anticoagulated with Xarelto. On 08/31/2020 patient seen in follow-up on medical surgical floor. He is awake and alert, answers questions appropriately, however his oxygenation has wor sened, and his FiO2 requirement has increased from 2 L currently to 7 L per nasal cannula. His O2 saturation 7 L of oxygen is currently 97%. To be breathing comfortably, he does have a weak congested cough, no hemoptysis, no chest pain. His been afebrile, hemodynamically his been stable. Patient is currently on a combination of cefepime and vancomycin, culture has been sent, and is pending at this time, blood cultures have shown no growth. Patient has a trilogy ventilator at home, and we asked his to possibly bring the device to the hospital or temperatures and send the patient so we can review his settings. Currently patient is breathing comfortably. Any acute distress. Labs today. Today's chest x-ray shows slight worsening in the posterior left basilar airspace disease. On 09/01/2020 patient seen in follow-up on medical surgical floor. He is currently on 6 L of oxygen his pulse ox of 97%. Has a weak congested cough, he received a flutter valve which she needs assistance with using as the patient is unable to lift his arms, however with assistance he is able to use the flutter valve which this help him expectorate some whitish colored phlegm. His had no fever or chills, his white blood cell count is improving on his lab work. No new set of blood work today, his had no fever or chills, he is on recommendation of cefepime and vancomycin. He is awake and alert, oriented 3, he is on linezolid, lung sounds are positive for some scattered rhonchi, he is tolerating regular diet with aspiration precautions. His sputum culture showed the many PMNs, epithelial cells, gram-negative bacilli and gram-positive cocci. No altered Mentation, vital signs have been stable On 09/02/2020 patient is seen in follow-up on medical surgical floor. His oxygen requirements have significantly increased, he was placed on 100% nonrebreather today. He is awake and alert, oriented 3. His cough is very weak, he is not able to clear much phlegm. When he is able to bring up some phlegm it is mostly white in color. No fever or chills overnight, he is in sinus mechanism, a tachycardic with a rate in the 114-118 range, blood pressure stable. He remains on antibiotics the form of cefepime and vancomycin, his chest x-ray findings are essentially stable, correlating for left lower lobe atelectasis versus pneumonia and associated pleural effusion. His pro calcitonin level was low at 0.12 Objective - Vital Signs Vital signs: Vital Signs Temp 97.6 F 09/02/20 07:16 Pulse 118 H 09/02/20 11:15 Resp 22 09/02/20 08:15 BP 113/79 09/02/20 07:16 Pulse Ox 82 L 09/02/20 08:45 Intake & Output 09/01/20 09/02/20 09/02/20 18:59 06:59 18:59 Intake Total 1080 Output Total 1700 600 Balance -620 -600 Intake: Oral 1080 Output: Urine 1700 600 Other: Voiding Method External Catheter External Catheter External Catheter # Bowel Movements 1 1 - Exam GENERAL EXAM: Alert, very pleasant 55-year-old white male, on 100% nonrebreather mask with a pulse ox of 96% have a weak congested cough, comfortable in no apparent distress. HEAD: Normocephalic/atraumatic. EYES: Normal reaction of pupils, equal size. Conjunctiva pink, sclera white. NOSE: Clear with pink turbinates. THROAT: No erythema or exudates. NECK: No masses, no JVD, no thyroid enlargement, no adenopathy. CHEST: No chest wall deformity. Symmetrical expansion. LUNGS: Equal air entry with diminished sounds at bilateral bases CVS: Regular rate and rhythm, normal S1 and S2, no gallops, no murmurs, no rubs ABDOMEN: Soft, nontender. No hepatosplenomegaly, normal bowel sounds, no guarding or rigidity. EXTREMITIES: No clubbing, no edema, no cyanosis, 2+ pulses and upper and lower extremities. MUSCULOSKELETAL: Muscle strength and tone normal. SPINE: No scoliosis or deformity SKIN: No rashes CENTRAL NERVOUS SYSTEM: Alert and oriented -3. No focal deficits, tone is normal in all 4 extremities. PSYCHIATRIC: Alert and oriented -3. Appropriate affect. Intact judgment and insight. - Labs CBC & Chem 7: 08/30/20 05:34 09/01/20 10:25 Labs: Abnormal Lab Results - Last 24 Hours (Table) 09/01/20 09/01/20 Range/Units 16:31 20:30 POC Glucose (mg/dL) 145 H 167 H (75-99) mg/dL Microbiology - Last 24 Hours (Table) 08/31/20 15:24 Gram Stain - Final Sputum Sputum Culture - Final 08/29/20 12:18 Blood Culture - Preliminary Blood No Growth after 72 hours 08/29/20 12:18 Blood Culture - Preliminary Blood No Growth after 72 hours 08/30/20 09:25 Gram Stain - Final Sputum Sputum Culture - Final Assessment and Plan Plan: Assessment: #1. Acute hypoxemic respiratory failure secondary to bilateral focal airspace disease #2. Recent admission for pneumonia and pulmonary embolism, discharged on Ceftin and Xarelto #3. Advanced ALS #4. History of asthma, on Symbicort and ProAir in the outpatient setting. #5. History of depression Plan: Titrate FiO2 to keep O2 sats ration's at 90-92% Currently on 100% nonrebreather mask Patient has diffuse chest congestion, unable to clear secretions effectively Bronchoscopy with BAL is not a possibility related to likelihood of patient likely ending up on mechanical ventilator related to procedural sedation Continue chest physiotherapy Provide assistance with flutter valve Maintain aspiration precautions Continue same antibiotics Continue steroids and breathing treatments Overall prognosis is poor and guarded I performed a history & physical examination of the patient and discussed their management with my nurse practitioner, Megan Gutierrez. I reviewed the nurse practitioner's note and agree with the documented findings and plan of care. Lung sounds are positive for diminished breath sounds. The findings and the impression was discussed with the patient. I attest to the documentation by the nurse practitioner. Time with Patient: Less than 30
--- NOTE | 2020-09-02 13:40 | P.PN ---
Subjective Progress Note Date: 09/02/20 Patient is feeling more congested and having difficulty breathing today. His oxygen requirement increased and he was satting 85% on 8 L of oxygen when I saw him this morning. He told me that he is unable to cough up anything. He is very weak and dehydrated. He told me that he is unable to grab the cup of water from the table to drink and hydrate appropriately. Objective - Vital Signs Vital signs: Vital Signs Temp 97.6 F 09/02/20 07:16 Pulse 118 H 09/02/20 11:15 Resp 22 09/02/20 08:15 BP 113/79 09/02/20 07:16 Pulse Ox 82 L 09/02/20 08:45 Intake & Output 09/01/20 09/02/20 09/02/20 18:59 06:59 18:59 Intake Total 1080 Output Total 1700 600 Balance -620 -600 Intake: Oral 1080 Output: Urine 1700 600 Other: Voiding Method External Catheter External Catheter External Catheter # Bowel Movements 1 1 - Exam General: The patient is awake and alert, in no distress Eye: there is normal conjunctiva bilaterally. Neck: The neck is supple, there is no JVD. Cardiovascular: Normal S1-S2, no S3-S4, no murmurs. Respiratory: Lungs clear to auscultation bilaterally Gastrointestinal: Abdomen is soft, nontender Musculoskeletal: There is no pedal edema. Neurological:. Speech is normal. Skin: Skin is warm and dry - Labs CBC & Chem 7: 08/30/20 05:34 09/01/20 10:25 Labs: Abnormal Lab Results - Last 24 Hours (Table) 09/01/20 09/01/20 Range/Units 16:31 20:30 POC Glucose (mg/dL) 145 H 167 H (75-99) mg/dL Microbiology - Last 24 Hours (Table) 08/31/20 15:24 Gram Stain - Final Sputum Sputum Culture - Final 08/29/20 12:18 Blood Culture - Preliminary Blood No Growth after 72 hours 08/29/20 12:18 Blood Culture - Preliminary Blood No Growth after 72 hours Assessment and Plan Assessment: Patient is a 55-year-old male with recently diagnosed ALS who is wheelchair/Hospital bedbound, diverticulitis, and asthma who presented to the hospital secondary to worsening cough and shortness of breath. He was recently hospitalized here from 08/22 through 08/25 and found to have a small left lower lobe pulmonary embolism as well as possible left-sided pneumonia. He was discharged home on a course of Cefdinir and Zithromax, he was placed on Xarelto for his PE. Patient said that he was unable to use his CPAP at night at home secondary to persistent cough. He is currently awaiting a Dona lift and motorized wheelichair at home (Ordered by his outpatient nuerologist from [facility] in [place]). He has his home Tril ogy ventilator for nighttime use. He does not have a percussion vest or suction at home. He was evaluated in the ER and admitted to the hospital for further management of his medical problems noted below. Pneumonia with sepsis on presentation now resolved Acute hypoxic respiratory failure Chest congestion with suspected mucus plugging - cefepime and vancomycin day #5 ordered by ID. Patient finished course of azithromycin - Pro calcitonin only slightly elevated and unchanged compared to last admission - Sputum culture showed normal jamie - Patient is not a candidate for bronchoscopy with concern that he may end up on mechanical ventilation secondary to sedation and his poor baseline status - COVID negative during last admission - Mucinex twice a day and Tessalon Perles as needed - bronchodilators - percussion vest - Infectious disease and pulmonary following Recent pulmonary embolism - Xarelto ALS - supporative care HX asthma, diverticulitis Plan to discontinue antibiotics today (5 days already). Cultures negative.
[2020-09-02] MEDS: BACLOFEN 10 MG TAB PO PRN ×2 (14:32→20:59)
--- NOTE | 2020-09-02 15:43 | CDI ---
Documentation Clarification Form Date: 09/02/2020 03:33:54 PM From: Nga Carter CCS, CCDS Admit Date: 08/29/2020 01:22:00 PM Patient Name: Kevin Dasilva Visit Number: [id number] Discharge Date: ATTENTION: The Clinical Documentation Specialists (CDI) and [facility] Coding Staff appreciate your assistance in clarifying documentation. Please respond to the clarification below the line at the bottom and electronically sign. The CDI & [facility] Coding staff will review the response and follow-up if needed. Please note: Queries are made part of the Legal Health Record. If you have any questions, please contact the author of this message via ITS. Dr. Jesenia Johns: Asthma is documented in the 08/29 ED Note, the 08/29 H/P, the 08/30 Pulmonary Consult and in subsequent Progress Notes throughout the record without further specifity. Additional clarification regarding the type of asthma is requested. History/risk factors per the 08/29 H/P: Advanced ALS, Wheelchair & Bedbound, Diverticulitis, Asthma. Clinical Indicators: Presented to the ED on 08/29 via EMS with SOB. Recently diagnosed with Pneumonia & PE, discharged on antibiotics and Xarelto. ED Clinical Impression: Pneumonia 08/29 VS: T 98.4, P 120, R 20-28, BP 137/88, PO 95 RA, BMI: 24.3 08/29 LAB: WBC 19.7, Neut 18.2, Lymph 0.5, Lactic Acid 1.7. 08/29 RAD: CXR: Correlate for pneumonia. Home meds: Mucinex, Rilutek, INH Duoneb: Ipratropium-Albuterol, Omnicef, INH Symbicort, Baclofen, INH Albuterol Sulfate. Treatment 08/29: O2 2Lnc, INH Duoneb, IV Azithromycin, IV Cefepime, INH Ventolin, po Mucinex, INH Symbicort. Please clarify the type and severity of asthma, if known: [ ] Extrinsic asthma [ ] with exacerbation [ ] without exacerbation [ ] Intrinsic asthma [ ] with exacerbation [ ] without exacerbation [ ] Mild intermittent asthma [ ] with exacerbation [ ] without exacerbation [ ] Mild persistent asthma [ ] with exacerbation [ ] without exacerbation [ ] Moderate persistent asthma [ ] with exacerbation [ ] without exacerbation [ ] Severe persistent asthma [ ] with exacerbation [ ] without exacerbation [x ] Other, please specify ____ [ ] Unable to determine (Template Last Revised: April 2020) MTDD
[2020-09-02 16:56] LABS: Glucose,Whole Blood 105 mg/dL (75-99)
--- NOTE | 2020-09-02 16:58 | PN ---
PROGRESS NOTE DATE OF SERVICE: 09/02/2020. REASON FOR FOLLOWUP: Pneumonia. INTERVAL HISTORY: The patient is afebrile. The patient did have worsening of his respiratory status requiring non-rebreather. The patient denies having any chest pain. He did have a cough, not bringing up any sputum though. No abdominal pain or diarrhea. PHYSICAL EXAMINATION: Blood pressure 123/80 with a pulse of 103, temperature 98.1, he is 92% on room air. DESCRIPTION: Patient is a middle-aged male, up in the bed, in no distress RESPIRATORY SYSTEM: Unlabored breathing, decreased breath sounds in the base, with no wheeze. HEART: S1, S2. Regular rate and rhythm. ABDOMEN: Soft, no tenderness. LABS: No new labs have been obtained today. Sputum culture has been negative for resistant pathogen. Chest x-ray with left lower lobe atelectasis with pneumonia and diffusion. DIAGNOSTIC IMPRESSION AND PLAN: Patient with pneumonia, left lower lobe, concern for possible nosocomial pathogen. Sputum has been negative for resistant pathogen. Blood culture negative, though has slight worsening of his respiratory status. Continue current antibiotic and may benefit from bronchoscopy and deep cultures to determine possible infective pathogen and continue supportive care. MMODL / IJN: [id number] /
[2020-09-02] MEDS: SODIUM CHLORIDE 0.9% 1,000 ML IV SCH (17:38)
[2020-09-02 20:29] LABS: Glucose,Whole Blood 138 mg/dL (75-99)
[2020-09-02] MEDS: polyethylene glycoL 3350 17 GM POWD.PACK PO SCH (21:00)
[2020-09-02] MEDS: guaiFENesin-DM 100-10MG/5ML 10 ML CUP PO PRN (21:19)
[2020-09-03] MEDS: CEFEPIME 2 GM in SODIUM CHLORIDE 0.9% 100 ML IVPB SCH ×4 (00:27→23:09)
[2020-09-03] MEDS: SODIUM CHLORIDE 0.9% 1,000 ML IV SCH ×2 (02:55→16:36)
[2020-09-03] MEDS: IPRATROPIUM-ALBUTEROL 3 ML NEB INHALATION SCH ×6 (03:27→23:42)
[2020-09-03] MEDS: VANCOMYCIN 1,250 MG in SODIUM CHLORIDE 0.9% 250 ML IVPB SCH ×2 (03:31→13:06)
[2020-09-03 07:12] LABS: Glucose,Whole Blood 88 mg/dL (75-99)
[2020-09-03] MEDS: INSULIN ASPART (NovoLOG) 100 UNIT/ML VIAL SQ SCH ×4 (07:42→21:03)
[2020-09-03] MEDS: RIVAROXABAN 15 MG TAB PO SCH ×2 (07:48→21:06)
[2020-09-03] MEDS: predniSONE 20 MG TAB PO SCH (07:48)
[2020-09-03] MEDS: Riluzole [Rilutek] PO SCH ×2 (07:48→21:06)
[2020-09-03] MEDS: BUDESONIDE 1 MG/2 ML NEBU INHALATION SCH ×2 (09:07→19:59)
[2020-09-03] MEDS: FORMOTEROL FUMARATE 20 MCG/2 ML NEBU INHALATION SCH ×2 (09:07→19:59)
--- NOTE | 2020-09-03 09:30 | P.PN ---
Subjective Progress Note Date: 09/03/20 Patient is doing about the same today. There is no significant change in his overall condition. He said his cough is about the same. He is currently on 9 L of oxygen via high flow nasal cannula. Objective - Vital Signs Vital signs: Vital Signs Temp 98.3 F 09/03/20 07:22 Pulse 112 H 09/03/20 09:25 Resp 18 09/03/20 07:22 BP 122/80 09/03/20 07:22 Pulse Ox 93 L 09/03/20 07:22 Intake & Output 09/02/20 09/03/20 09/03/20 18:59 06:59 18:59 Output Total 1600 475 Balance -1600 -475 Output: Urine 1600 475 Other: Voiding Method External Catheter External Catheter # Bowel Movements 1 - Exam General: The patient is awake and alert, in no distress Eye: there is normal conjunctiva bilaterally. Neck: The neck is supple, there is no JVD. Cardiovascular: Normal S1-S2, no S3-S4, no murmurs. Respiratory: Lungs clear to auscultation bilaterally Gastrointestinal: Abdomen is soft, nontender Musculoskeletal: There is no pedal edema. Neurological:. Speech is normal. Skin: Skin is warm and dry - Labs CBC & Chem 7: 08/30/20 05:34 09/01/20 10:25 Labs: Abnormal Lab Results - Last 24 Hours (Table) 09/02/20 09/02/20 Range/Units 16:55 20:27 POC Glucose (mg/dL) 105 H 138 H (75-99) mg/dL Microbiology - Last 24 Hours (Table) 08/29/20 12:18 Blood Culture - Preliminary Blood No Growth after 96 hours 08/29/20 12:18 Blood Culture - Preliminary Blood No Growth after 96 hours 08/31/20 15:24 Gram Stain - Final Sputum Sputum Culture - Final Assessment and Plan Assessment: Patient is a 55-year-old male with recently diagnosed ALS who is wheelchair/Hospital bedbound, diverticulitis, and asthma who presented to the hospital secondary to worsening cough and shortness of breath. He was recently hospitalized here from 08/22 through 08/25 and found to have a small left lower lobe pulmonary embolism as well as possible left-sided pneumonia. He was discharged home on a course of Cefdinir and Zithromax, he was placed on Xarelto for his PE. Patient said that he was unable to use his CPAP at night at home secondary to persistent cough. He is currently awaiting a Dona lift and motorized wheelichair at home (Ordered by his outpatient nuerologist from [facility] in [place]). He has his home Trilogy ventilator for nighttime use. He does not have a percussion vest or suction at home. He was evaluated in the ER and admitted to the hospital for further management of his medical problems noted below. Pneumonia with sepsis on presentation now resolved Acute hypoxic respiratory failure Chest congestion with suspected mucus plugging - cefepime and vancomycin day #6 ordered by ID. Patient finished course of azithromycin - Pro calcitonin only slightly elevated and unchanged compared to last admission - Sputum culture showed normal jamie - Patient is not a candidate for bronchoscopy with concern that he may end up on mechanical ventilation secondary to sedation and his poor baseline status - COVID negative during last admission - Mucinex twice a day and Tessalon Perles as needed - bronchodilators - percussion vest and/or chest physiotherapy - Infectious disease and pulmonary following Recent pulmonary embolism - Xarelto ALS - supporative care HX asthma, diverticulitis Plan to discontinue antibiotics tomorrow as patient would finish 7 days course of broad-spectrum antibiotic. Cultures negative.
[2020-09-03] MEDS ORDERED: VANCOMYCIN TROUGH DUE 1 EACH MISC MISCELLANE ONE (11:00)
[2020-09-03 11:30] LABS: Basophils % (A) 0 %; Eosinophils % (A) 0 %; HCT 43.7 % (39.0-53.0); Lymphocytes # (A) 0.6 k/uL (1.0-4.8); Lymphocytes % (A) 5 %; MCH 27.6 pg (25.0-35.0); MCHC 32.1 g/dL (31.0-37.0); MCV 85.9 fL (80.0-100.0); Mean Platelet Volume 6.8; Monocytes # (A) 0.3 k/uL (0-1.0); Monocytes % (A) 3 %; Neutrophils # (A) 10.6 k/uL (1.3-7.7); Neutrophils % (A) 91 %; Platelet Count 421 k/uL (150-450); RBC 5.08 m/uL (4.30-5.90); RDW 13.2 % (11.5-15.5); WBC 11.7 k/uL (3.8-10.6)
[2020-09-03 11:34] LABS: Glucose,Whole Blood 92 mg/dL (75-99)
[2020-09-03 12:08] LABS: African American GFR (CKD) >90 (>60 ml/min/1.73 sqM); Anion Gap 4 mmol/L; Blood Urea Nitrogen 7 mg/dL (9-20); Carbon Dioxide 32 mmol/L (22-30); Chloride 101 mmol/L (98-107); Glucose 97 mg/dL (74-99); Magnesium 2.4 mg/dL (1.6-2.3); Non-African American GFR(CKD) >90 (>60 ml/min/1.73 sqM); Potassium 4.1 mmol/L (3.5-5.1); Sodium 137 mmol/L (137-145)
--- NOTE | 2020-09-03 12:18 | P.PN ---
Subjective Progress Note Date: 09/03/20 Principal diagnosis: Bilateral pneumonia This is a very pleasant 55-year-old gentleman with advanced ALS and history of asthma. He does have noninvasive positive pressure ventilation device at home though he had been intolerant to it the last couple weeks while sick. He is rec ently here with pneumonia and pulmonary embolism and started on Xarelto and discharged home on Omnicef. He had been getting better however yesterday he became significantly more short of breath and presented to the emergency room for the same. He is requiring 6 L high flow nasal cannula to maintain O2 saturations in the 90s. He is seen today in consultation on the regular medical floor. He is currently sitting up in bed. Awake and alert in no acute distress. Some dyspnea with conversation. Loose nonproductive cough. White count 11.2. Hemoglobin 12.2. Sodium 137. Potassium 3.9. Creatinine 0.2. He's been initiated on DuoNeb inhalations, Mucinex, Symbicort. Antibiotics in the form of cefepime. Anticoagulated with Xarelto. On 08/31/2020 patient seen in follow-up on medical surgical floor. He is awake and alert, answers questions appropriately, however his oxygenation has wor sened, and his FiO2 requirement has increased from 2 L currently to 7 L per nasal cannula. His O2 saturation 7 L of oxygen is currently 97%. To be breathing comfortably, he does have a weak congested cough, no hemoptysis, no chest pain. His been afebrile, hemodynamically his been stable. Patient is currently on a combination of cefepime and vancomycin, culture has been sent, and is pending at this time, blood cultures have shown no growth. Patient has a trilogy ventilator at home, and we asked his to possibly bring the device to the hospital or temperatures and send the patient so we can review his settings. Currently patient is breathing comfortably. Any acute distress. Labs today. Today's chest x-ray shows slight worsening in the posterior left basilar airspace disease. On 09/01/2020 patient seen in follow-up on medical surgical floor. He is currently on 6 L of oxygen his pulse ox of 97%. Has a weak congested cough, he received a flutter valve which she needs assistance with using as the patient is unable to lift his arms, however with assistance he is able to use the flutter valve which this help him expectorate some whitish colored phlegm. His had no fever or chills, his white blood cell count is improving on his lab work. No new set of blood work today, his had no fever or chills, he is on recommendation of cefepime and vancomycin. He is awake and alert, oriented 3, he is on linezolid, lung sounds are positive for some scattered rhonchi, he is tolerating regular diet with aspiration precautions. His sputum culture showed the many PMNs, epithelial cells, gram-negative bacilli and gram-positive cocci. No altered Mentation, vital signs have been stable On 09/02/2020 patient is seen in follow-up on medical surgical floor. His oxygen requirements have significantly increased, he was placed on 100% nonrebreather today. He is awake and alert, oriented 3. His cough is very weak, he is not able to clear much phlegm. When he is able to bring up some phlegm it is mostly white in color. No fever or chills overnight, he is in sinus mechanism, a tachycardic with a rate in the 114-118 range, blood pressure stable. He remains on antibiotics the form of cefepime and vancomycin, his chest x-ray findings are essentially stable, correlating for left lower lobe atelectasis versus pneumonia and associated pleural effusion. His pro calcitonin level was low at 0.12 On 09/03/2020 patient seen in follow-up on medical surgical floor. He is up in the chair today, he is currently on 9 L of oxygen per high flow nasal cannula, still says that his chest is tight, but overall he sounds better, and FiO2 is down to 9 L from 100% nonrebreather on yesterday's exam, patient remains on accommodation of cefepime and vancomycin, so far his blood and sputum cultures have shown no growth. Patient has been afebrile, yesterday's chest x-ray showed stable findings with left lower lobe atelectasis and associated small pleural effusion. Sounds less congested on today's exam, he is receiving chest physiotherapy twice a day, staff is assisting with her incentive spirometer, patient is able to achieve 500-750 on it today. He is using his flutter valve. Objective - Vital Signs Vital signs: Vital Signs Temp 98.3 F 09/03/20 07:22 Pulse 114 H 09/03/20 12:08 Resp 18 09/03/20 08:30 BP 122/80 09/03/20 07:22 Pulse Ox 93 L 09/03/20 07:22 Intake & Output 09/02/20 09/03/20 09/03/20 18:59 06:59 18:59 Intake Total 100 Output Total 1600 475 500 Balance -1600 -475 -400 Intake: Oral 100 Output: Urine 1600 475 500 Other: Voiding Method External Catheter External Catheter External Catheter # Bowel Movements 1 1 - Exam GENERAL EXAM: Alert, very pleasant 55-year-old white male, on 9 L per high flow nasal cannula of 93% have a weak congested cough, comfortable in no apparent distress. HEAD: Normocephalic/atraumatic. EYES: Normal reaction of pupils, equal size. Conjunctiva pink, sclera white. NOSE: Clear with pink turbinates. THROAT: No erythema or exudates. NECK: No masses, no JVD, no thyroid enlargement, no adenopathy. CHEST: No chest wall deformity. Symmetrical expansion. LUNGS: Equal air entry with diminished sounds at bilateral bases, with scattered rhonchi mainly in the upper airways CVS: Regular rate and rhythm, normal S1 and S2, no gallops, no murmurs, no rubs ABDOMEN: Soft, nontender. No hepatosplenomegaly, normal bowel sounds, no guarding or rigidity. EXTREMITIES: No clubbing, mild pretibial and pedal edema, no cyanosis, 2+ pulses and upper and lower extremities. MUSCULOSKELETAL: Muscle strength and tone normal. SPINE: No scoliosis or deformity SKIN: No rashes CENTRAL NERVOUS SYSTEM: Alert and oriented -3. No focal deficits, tone is normal in all 4 extremities. PSYCHIATRIC: Alert and oriented -3. Appropriate affect. Intact judgment and insight. - Labs CBC & Chem 7: 09/03/20 11:13 09/03/20 11:13 Labs: Abnormal Lab Results - Last 24 Hours (Table) 09/02/20 09/02/20 09/03/20 Range/Units 16:55 20:27 11:13 WBC 11.7 H (3.8-10.6) k/uL Neutrophils # 10.6 H (1.3-7.7) k/uL Lymphocytes # 0.6 L (1.0-4.8) k/uL Carbon Dioxide (22-30) mmol/L BUN (9-20) mg/dL Creatinine (0.66-1.25) mg/dL POC Glucose (mg/dL) 105 H 138 H (75-99) mg/dL Magnesium (1.6-2.3) mg/dL 09/03/20 Range/Units 11:13 WBC (3.8-10.6) k/uL Neutrophils # (1.3-7.7) k/uL Lymphocytes # (1.0-4.8) k/uL Carbon Dioxide 32 H (22-30) mmol/L BUN 7 L (9-20) mg/dL Creatinine 0.21 L (0.66-1.25) mg/dL POC Glucose (mg/dL) (75-99) mg/dL Magnesium 2.4 H (1.6-2.3) mg/dL Microbiology - Last 24 Hours (Table) 08/29/20 12:18 Blood Culture - Preliminary Blood No Growth after 96 hours 08/29/20 12:18 Blood Culture - Preliminary Blood No Growth after 96 hours 08/31/20 15:24 Gram Stain - Final Sputum Sputum Culture - Final Assessment and Plan Plan: Assessment: #1. Acute hypoxemic respiratory failure secondary to bilateral focal airspace disease #2. Recent admission for pneumonia and pulmonary embolism, discharged on Ceftin and Xarelto #3. Advanced ALS #4. History of asthma, on Symbicort and ProAir in the outpatient setting. #5. History of depression Plan: Clinically patient seems to be improved on today's exam Fio2 is down to 9 L, continue to wean FiO2 Aspiration precautions Continue same antibiotics Vital signs have been stable Yesterday chest x-ray showed minimal left basilar atelectasis Continue same dose steroids and breathing treatments Continue chest physiotherapy, incentive spirometer use a flutter valve We'll continue to follow I performed a history & physical examination of the patient and discussed their management with my nurse practitioner, Megan Gutierrez. I reviewed the nurse practitioner's note and agree with the documented findings and plan of care. Lung sounds are positive for diminished breath sounds. The findings and the impression was discussed with the patient. I attest to the documentation by the nurse practitioner. Time with Patient: Less than 30
[2020-09-03 15:03] VITALS: BMI 24.3
[2020-09-03 16:39] LABS: Glucose,Whole Blood 119 mg/dL (75-99)
--- NOTE | 2020-09-03 17:21 | PN ---
PROGRESS NOTE DATE OF SERVICE: 09/03/2020. REASON FOR FOLLOWUP: Pneumonia. INTERVAL HISTORY: The patient is currently afebrile. The patient is breathing slightly comfortably compared to yesterday. The patient denies having any chest pain or worsening cough. No abdominal pain or diarrhea. PHYSICAL EXAMINATION: Blood pressure 120/81 with a pulse of 110 temperature 98.3, he is 99% on 2 L nasal cannula. GENERAL DESCRIPTION: Is a middle-aged male up in the bed in no distress. RESPIRATORY SYSTEM: Unlabored breathing, decreased breath sounds in the base, with no wheeze. HEART: S1, S2. Regular. ABDOMEN: Soft, no tenderness. LABS: Hemoglobin is 14.3, white count 11.2, BUN of 7, creatinine 0.21. Sputum has been negative. DIAGNOSTIC IMPRESSION AND PLAN: Patient admitted to the hospital with pneumonia. This patient concern for possible nosocomial pathogen however culture remains negative for resistant pathogen especially MRSA. Vanc will be discontinued. Continue cefepime, add Levaquin and monitor clinical course closely. MMODL / IJN: [id number] /
[2020-09-03] MEDS: LEVOFLOXACIN 750 MG TAB PO SCH (18:23)
[2020-09-03 20:52] LABS: Glucose,Whole Blood 101 mg/dL (75-99)
[2020-09-03] MEDS: polyethylene glycoL 3350 17 GM POWD.PACK PO SCH (21:04)
[2020-09-03] MEDS: BACLOFEN 10 MG TAB PO PRN (21:06)
[2020-09-04] MEDS: IPRATROPIUM-ALBUTEROL 3 ML NEB INHALATION SCH ×5 (03:35→19:48)
[2020-09-04] MEDS: SODIUM CHLORIDE 0.9% 1,000 ML IV SCH ×4 (05:04→20:28)
[2020-09-04 06:40] LABS: Glucose,Whole Blood 83 mg/dL (75-99)
[2020-09-04] MEDS: INSULIN ASPART (NovoLOG) 100 UNIT/ML VIAL SQ SCH ×4 (07:24→20:06)
[2020-09-04] MEDS: predniSONE 20 MG TAB PO SCH (08:24)
[2020-09-04] MEDS: RIVAROXABAN 15 MG TAB PO SCH ×3 (08:24→20:07)
[2020-09-04] MEDS: Riluzole [Rilutek] PO SCH ×2 (08:24→20:06)
[2020-09-04] MEDS: BUDESONIDE 1 MG/2 ML NEBU INHALATION SCH ×2 (08:47→19:47)
[2020-09-04] MEDS: FORMOTEROL FUMARATE 20 MCG/2 ML NEBU INHALATION SCH ×2 (08:47→19:58)
--- NOTE | 2020-09-04 10:11 | P.PN ---
Subjective Progress Note Date: 09/04/20 Patient was seen and evaluated by me this morning. He is feeling about the same compared to yesterday. He still complaining of chest congestion. His morning he was able to bring up some clear phlegm. He is currently on 11 L of oxygen via high flow nasal cannula and satting 92%. I attempted to decrease his oxygen to 9 L but patient desatted to 88%. He is mostly a mouth breather Objective - Vital Signs Vital signs: Vital Signs Temp 97.4 F L 09/04/20 07:35 Pulse 116 H 09/04/20 09:13 Resp 18 09/04/20 07:35 BP 115/73 09/04/20 07:35 Pulse Ox 91 L 09/04/20 07:35 Intake & Output 09/03/20 09/04/20 09/04/20 18:59 06:59 18:59 Intake Total 200 Output Total 1450 975 Balance -1250 -975 Weight 72.575 kg Intake: Oral 200 Output: Urine 1450 975 Other: Voiding Method External Catheter External Catheter External Catheter # Bowel Movements 1 - Exam General: The patient is awake and alert, in no distress Eye: there is normal conjunctiva bilaterally. Neck: The neck is supple, there is no JVD. Cardiovascular: Normal S1-S2, no S3-S4, no murmurs. Respiratory: Lungs clear to auscultation bilaterally Gastrointestinal: Abdomen is soft, nontender Musculoskeletal: There is no pedal edema. Neurological:. Speech is normal. Skin: Skin is warm and dry - Labs CBC & Chem 7: 09/03/20 11:13 09/03/20 11:13 Labs: Abnormal Lab Results - Last 24 Hours (Table) 09/03/20 09/03/20 09/03/20 Range/Units 11:13 11:13 16:38 WBC 11.7 H (3.8-10.6) k/uL Neutrophils # 10.6 H (1.3-7.7) k/uL Lymphocytes # 0.6 L (1.0-4.8) k/uL Carbon Dioxide 32 H (22-30) mmol/L BUN 7 L (9-20) mg/dL Creatinine 0.21 L (0.66-1.25) mg/dL POC Glucose (mg/dL) 119 H (75-99) mg/dL Magnesium 2.4 H (1.6-2.3) mg/dL 09/03/20 Range/Units 20:49 WBC (3.8-10.6) k/uL Neutrophils # (1.3-7.7) k/uL Lymphocytes # (1.0-4.8) k/uL Carbon Dioxide (22-30) mmol/L BUN (9-20) mg/dL Creatinine (0.66-1.25) mg/dL POC Glucose (mg/dL) 101 H (75-99) mg/dL Magnesium (1.6-2.3) mg/dL Microbiology - Last 24 Hours (Table) 08/29/20 12:18 Blood Culture - Preliminary Blood No Growth after 120 hours 08/29/20 12:18 Blood Culture - Preliminary Blood No Growth after 120 hours Assessment and Plan Assessment: Patient is a 55-year-old male with recently diagnosed ALS who is wheelchair /Hospital bedbound, diverticulitis, and asthma who presented to the hospital secondary to worsening cough and shortness of breath. He was recently hospitalized here from 08/22 through 08/25 and found to have a small left lower lobe pulmonary embolism as well as possible left-sided pneumonia. He was discharged home on a course of Cefdinir and Zithromax, he was placed on Xarelto for his PE. Patient said that he was unable to use his CPAP at night at home secondary to persistent cough. He is currently awaiting a Dona lift and motorized wheelichair at home (Ordered by his outpatient nuerologist from [facility]). He has his home Trilogy ventilator for nighttime use. He does not have a percussion vest or suction at home. He was evaluated in the ER and admitted to the hospital for further management of his medical problems noted below. Pneumonia with sepsis on presentation now resolved Acute hypoxic respiratory failure Chest congestion with suspected mucus plugging - Patient finish 7 days course of IV vancomycin and cefepime. He also finished a course of Keflex and azithromycin prior to this admission. - Pro calcitonin only slightly elevated and unchanged compared to last admission - Sputum culture showed normal jamie - Patient is not a candidate for bronchoscopy with concern that he may end up on mechanical ventilation secondary to sedation and his poor baseline status - COVID negative during last admission - Mucinex twice a day and Tessalon Perles as needed - bronchodilators - percussion vest and/or chest physiotherapy - Infectious disease and pulmonary following Recent pulmonary embolism - Luther ALS - supporative care HX asthma, diverticulitis Today, I discussed with the patient his current clinical condition. I informed him that it is a very slim chance that he will go back to room air and he would definitely require some oxygen at home. Thr goal now is to bring his oxygen nocturnally acceptable level maybe around 5 L. I also told him to discuss with pulmonary the need to start using the Trilogy ventilator during the day for some time as well. He is definitely having progressive ALS disease affecting his respiratory status. He has a very weak cough and probably having some mucus plugging. He also had a very weak inspiratory effort. His overall prognosis is guarded.
--- NOTE | 2020-09-04 10:35 | P.PN ---
Subjective Progress Note Date: 09/04/20 This is a very pleasant 55-year-old gentleman with advanced ALS and history of asthma. He does have noninvasive positive pressure ventilation device at home though he had been intolerant to it the last couple weeks while sick. He is recently here with pneumonia and pulmonary embolism and started on Xarelto and discharged home on Omnicef. He had been getting better however yesterday he became significantly more short of breath and presented to the emergency room for the same. He is requiring 6 L high flow nasal cannula to maintain O2 saturations in the 90s. He is seen today in consultation on the regular medical floor. He is currently sitting up in bed. Awake and alert in no acute distress. Some dyspnea with conversation. Loose nonproductive cough. White count 11.2. Hemoglobin 12.2. Sodium 137. Potassium 3.9. Creatinine 0.2. He's been initiated on DuoNeb inhalations, Mucinex, Symbicort. Antibiotics in the form of cefepime. Anticoagulated with Xarelto. On 08/31/2020 patient seen in follow-up on medical surgical floor. He is awake and alert, answers questions appropriately, however his oxygenation has worsened, and his FiO2 requirement has increased from 2 L currently to 7 L per nasal cannula. His O2 saturation 7 L of oxygen is currently 97%. To be breathing comfortably, he does have a weak congested cough, no hemoptysis, no chest pain. His been afebrile, hemodynamically his been stable. Patient is currently on a combination of cefepime and vancomycin, culture has been sent, and is pending at this time, blood cultures have shown no growth. Patient has a trilogy ventilator at home, and we asked his to possibly bring the device to the hospital or temperatures and send the patient so we can review his settings. Currently patient is breathing comfortably. Any acute distress. Labs today. Today's chest x-ray shows slight worsening in the posterior left basilar airspace disease. On 09/01/2020 patient seen in follow-up on medical surgical floor. He is currently on 6 L of oxygen his pulse ox of 97%. Has a weak congested cough, he received a flutter valve which she needs assistance with using as the patient is unable to lift his arms, however with assistance he is able to use the flutter valve which this help him expectorate some whitish colored phlegm. His had no fever or chills, his white blood cell count is improving on his lab work. No new set of blood work today, his had no fever or chills, he is on recommendation of cefepime and vancomycin. He is awake and alert, oriented 3, he is on linezolid, lung sounds are positive for some scattered rhonchi, he is tolerating regular diet with aspiration precautions. His sputum culture showed the many PMNs, epithelial cells, gram-negative bacilli and gram-positive cocci. No altered Mentation, vital signs have been stable On 09/02/2020 patient is seen in follow-up on medical surgical floor. His oxygen requirements have significantly increased, he was placed on 100% nonrebreather today. He is awake and alert, oriented 3. His cough is very weak, he is not able to clear much phlegm. When he is able to bring up some phlegm it is mostly white in color. No fever or chills overnight, he is in sinus mechanism, a tachycardic with a rate in the 114-118 range, blood pressure stable. He remains on antibiotics the form of cefepime and vancomycin, his chest x-ray findings are essentially stable, correlating for left lower lobe atelectasis versus pneumonia and associated pleural effusion. His pro calcitonin level was low at 0.12 On 09/03/2020 patient seen in follow-up on medical surgical floor. He is up in the chair today, he is currently on 9 L of oxygen per high flow nasal cannula, still says that his chest is tight, but overall he sounds better, and FiO2 is down to 9 L from 100% nonrebreather on yesterday's exam, patient remains on accommodation of cefepime and vancomycin, so far his blood and sputum cultures have shown no growth. Patient has been afebrile, yesterday's chest x-ray showed stable findings with left lower lobe atelectasis and associated small pleural effusion. Sounds less congested on today's exam, he is receiving chest physiotherapy twice a day, staff is assisting with her incentive spirometer, patient is able to achieve 500-750 on it today. He is using his flutter valve. Garth2020, the patient is able to sit up on a chair. He is requiring assistance for the use of the flutter valve and incentive spirometer. He is also receiving chest vibration therapy. He has some limited congested cough. I will say clinically is improved compared to yesterday. He is still somewhat between 9-10 L of oxygen by nasal cannula and the pulse ox is ranging between 90-91%. He requires assistance for activities of daily today life. He requires assistance for feeding. He remains on a combination of cefepime and vancomycin. Sputum cultures have shown no growth. He is hemodynamically stable. His afebrile. Objective - Vital Signs Vital signs: Vital Signs Temp 97.4 F L 09/04/20 07:35 Pulse 116 H 09/04/20 09:13 Resp 18 09/04/20 07:35 BP 115/73 09/04/20 07:35 Pulse Ox 91 L 09/04/20 07:35 Intake & Output 09/03/20 09/04/20 09/04/20 18:59 06:59 18:59 Intake Total 200 Output Total 1450 975 Balance -1250 -975 Weight 72.575 kg Intake: Oral 200 Output: Urine 1450 975 Other: Voiding Method External Catheter External Catheter External Catheter # Bowel Movements 1 - Exam GENERAL EXAM: Alert, very pleasant 55-year-old white male, on 9 L per high flow nasal cannula of 93% have a weak congested cough, comfortable in no apparent distress. HEAD: Normocephalic/atraumatic. EYES: Normal reaction of pupils, equal size. Conjunctiva pink, sclera white. NOSE: Clear with pink turbinates. THROAT: No erythema or exudates. NECK: No masses, no JVD, no thyroid enlargement, no adenopathy. CHEST: No chest wall deformity. Symmetrical expansion. LUNGS: Equal air entry with diminished sounds at bilateral bases, with scattered rhonchi mainly in the upper airways CVS: Regular rate and rhythm, normal S1 and S2, no gallops, no murmurs, no rubs ABDOMEN: Soft, nontender. No hepatosplenomegaly, normal bowel sounds, no guarding or rigidity. EXTREMITIES: No clubbing, mild pretibial and pedal edema, no cyanosis, 2+ pulses and upper and lower extremities. MUSCULOSKELETAL: Muscle strength and tone normal. SPINE: No scoliosis or deformity SKIN: No rashes CENTRAL NERVOUS SYSTEM: Alert and oriented -3. No focal deficits, tone is normal in all 4 extremities. PSYCHIATRIC: Alert and oriented -3. Appropriate affect. Intact judgment and insight. - Labs CBC & Chem 7: 09/03/20 11:13 09/03/20 11:13 Labs: Abnormal Lab Results - Last 24 Hours (Table) 09/03/20 09/03/20 09/03/20 Range/Units 11:13 11:13 16:38 WBC 11.7 H (3.8-10.6) k/uL Neutrophils # 10.6 H (1.3-7.7) k/uL Lymphocytes # 0.6 L (1.0-4.8) k/uL Carbon Dioxide 32 H (22-30) mmol/L BUN 7 L (9-20) mg/dL Creatinine 0.21 L (0.66-1.25) mg/dL POC Glucose (mg/dL) 119 H (75-99) mg/dL Magnesium 2.4 H (1.6-2.3) mg/dL 09/03/20 Range/Units 20:49 WBC (3.8-10.6) k/uL Neutrophils # (1.3-7.7) k/uL Lymphocytes # (1.0-4.8) k/uL Carbon Dioxide (22-30) mmol/L BUN (9-20) mg/dL Creatinine (0.66-1.25) mg/dL POC Glucose (mg/dL) 101 H (75-99) mg/dL Magnesium (1.6-2.3) mg/dL Microbiology - Last 24 Hours (Table) 08/29/20 12:18 Blood Culture - Preliminary Blood No Growth after 120 hours 08/29/20 12:18 Blood Culture - Preliminary Blood No Growth after 120 hours Assessment and Plan Plan: #1. Acute hypoxemic respiratory failure secondary to tracheobronchitis with significant amount of mucus causing respiratory compromise as the patient has impaired ability to cough and the rest or secretions due to his underlying ALS and neuromuscular weakness. Currently on 10 L of oxygen by nasal cannula. Currently stable. Using aggressive modes of pulmonary toileting. #2. Recent admission for pneumonia and pulmonary embolism, on Xarelto #3. Advanced ALS #4. History of asthma, on Symbicort and ProAir in the outpatient setting. #5. History of depression Plan: Clinically patient seems to be improved on today's exam Fio2 is down to 10 L, continue to wean FiO2 Aspiration precautions Continue same antibiotics Vital signs have been stable We'll continue same management for now. Aggressive pulmonary toileting. Chest PT, vibration therapy, flutter valve, incentive spirometer, postural drainage, bronchodilators. We'll continue to follow.
[2020-09-04 11:43] LABS: Glucose,Whole Blood 93 mg/dL (75-99)
--- NOTE | 2020-09-04 16:16 | PN ---
PROGRESS NOTE DATE OF SERVICE: 09/04/2020 REASON FOR FOLLOWUP: Pneumonia. INTERVAL HISTORY: The patient is currently afebrile. The patient is breathing comfortably. The patient denies having any chest pain. Did have a cough, not bringing any sputum. No abdominal pain, no diarrhea. PHYSICAL EXAMINATION: Blood pressure 132/76, pulse of 140, temperature is 97.8, he is 90% on 2 L nasal cannula. General description is a middle-aged male, lying in bed, in no distress. Respiratory system: Unlabored breathing, coarse breath sounds bilaterally, no wheeze. Heart S1, S2. Regular rate and rhythm. Abdomen soft, no tenderness. LABS: No new labs have been obtained today. No chest pain. Cultures have been negative so far. DIAGNOSTIC IMPRESSION AND PLAN: Patient with admission to the hospital with concern for pneumonia. Initial concern for possible nosocomial pathogen, however sputum has been negative for resistant pathogen. Patient is currently covered with Levaquin, to continue and monitor clinical course closely. Continue supportive care. MMODL / IJN: [id number] /
[2020-09-04 16:39] LABS: Glucose,Whole Blood 127 mg/dL (75-99)
[2020-09-04] MEDS: LEVOFLOXACIN 750 MG TAB PO SCH (17:57)
[2020-09-04 19:41] LABS: Glucose,Whole Blood 123 mg/dL (75-99)
[2020-09-04] MEDS: guaiFENesin-DM 100-10MG/5ML 10 ML CUP PO PRN (20:06)
[2020-09-04] MEDS: polyethylene glycoL 3350 17 GM POWD.PACK PO SCH ×2 (20:06→20:09)
[2020-09-05] MEDS: IPRATROPIUM-ALBUTEROL 3 ML NEB INHALATION SCH ×6 (00:02→20:55)
[2020-09-05 06:43] LABS: Glucose,Whole Blood 110 mg/dL (75-99)
[2020-09-05] MEDS: INSULIN ASPART (NovoLOG) 100 UNIT/ML VIAL SQ SCH ×4 (07:35→21:06)
[2020-09-05] MEDS: BUDESONIDE 1 MG/2 ML NEBU INHALATION SCH ×2 (09:08→20:55)
[2020-09-05] MEDS: FORMOTEROL FUMARATE 20 MCG/2 ML NEBU INHALATION SCH ×2 (09:08→20:55)
[2020-09-05] MEDS: Riluzole [Rilutek] PO SCH ×2 (09:48→21:26)
[2020-09-05] MEDS: predniSONE 20 MG TAB PO SCH (09:48)
[2020-09-05] MEDS: RIVAROXABAN 15 MG TAB PO SCH ×2 (10:26→21:26)
--- NOTE | 2020-09-05 11:24 | P.PN ---
Subjective Progress Note Date: 09/05/20 This is a very pleasant 55-year-old gentleman with advanced ALS and history of asthma. He does have noninvasive positive pressure ventilation device at home though he had been intolerant to it the last couple weeks while sick. He is recently here with pneumonia and pulmonary embolism and started on Xarelto and discharged home on Omnicef. He had been getting better however yesterday he became significantly more short of breath and presented to the emergency room for the same. He is requiring 6 L high flow nasal cannula to maintain O2 saturations in the 90s. He is seen today in consultation on the regular medical floor. He is currently sitting up in bed. Awake and alert in no acute distress. Some dyspnea with conversation. Loose nonproductive cough. White count 11.2. Hemoglobin 12.2. Sodium 137. Potassium 3.9. Creatinine 0.2. He's been initiated on DuoNeb inhalations, Mucinex, Symbicort. Antibiotics in the form of cefepime. Anticoagulated with Xarelto. On 08/31/2020 patient seen in follow-up on medical surgical floor. He is awake and alert, answers questions appropriately, however his oxygenation has worsened, and his FiO2 requirement has increased from 2 L currently to 7 L per nasal cannula. His O2 saturation 7 L of oxygen is currently 97%. To be breathing comfortably, he does have a weak congested cough, no hemoptysis, no chest pain. His been afebrile, hemodynamically his been stable. Patient is currently on a combination of cefepime and vancomycin, culture has been sent, and is pending at this time, blood cultures have shown no growth. Patient has a trilogy ventilator at home, and we asked his to possibly bring the device to the hospital or temperatures and send the patient so we can review his settings. Currently patient is breathing comfortably. Any acute distress. Labs today. Today's chest x-ray shows slight worsening in the posterior left basilar airspace disease. On 09/01/2020 patient seen in follow-up on medical surgical floor. He is currently on 6 L of oxygen his pulse ox of 97%. Has a weak congested cough, he received a flutter valve which she needs assistance with using as the patient is unable to lift his arms, however with assistance he is able to use the flutter valve which this help him expectorate some whitish colored phlegm. His had no fever or chills, his white blood cell count is improving on his lab work. No new set of blood work today, his had no fever or chills, he is on recommendation of cefepime and vancomycin. He is awake and alert, oriented 3, he is on linezolid, lung sounds are positive for some scattered rhonchi, he is tolerating regular diet with aspiration precautions. His sputum culture showed the many PMNs, epithelial cells, gram-negative bacilli and gram-positive cocci. No altered Mentation, vital signs have been stable On 09/02/2020 patient is seen in follow-up on medical surgical floor. His oxygen requirements have significantly increased, he was placed on 100% nonrebreather today. He is awake and alert, oriented 3. His cough is very weak, he is not able to clear much phlegm. When he is able to bring up some phlegm it is mostly white in color. No fever or chills overnight, he is in sinus mechanism, a tachycardic with a rate in the 114-118 range, blood pressure stable. He remains on antibiotics the form of cefepime and vancomycin, his chest x-ray findings are essentially stable, correlating for left lower lobe atelectasis versus pneumonia and associated pleural effusion. His pro calcitonin level was low at 0.12 On 09/03/2020 patient seen in follow-up on medical surgical floor. He is up in the chair today, he is currently on 9 L of oxygen per high flow nasal cannula, still says that his chest is tight, but overall he sounds better, and FiO2 is down to 9 L from 100% nonrebreather on yesterday's exam, patient remains on accommodation of cefepime and vancomycin, so far his blood and sputum cultures have shown no growth. Patient has been afebrile, yesterday's chest x-ray showed stable findings with left lower lobe atelectasis and associated small pleural effusion. Sounds less congested on today's exam, he is receiving chest physiotherapy twice a day, staff is assisting with her incentive spirometer, patient is able to achieve 500-750 on it today. He is using his flutter valve. Garth2020, the patient is able to sit up on a chair. He is requiring assistance for the use of the flutter valve and incentive spirometer. He is also receiving chest vibration therapy. He has some limited congested cough. I will say clinically is improved compared to yesterday. He is still somewhat between 9-10 L of oxygen by nasal cannula and the pulse ox is ranging between 90-91%. He requires assistance for activities of daily today life. He requires assistance for feeding. He remains on a combination of cefepime and vancomycin. Sputum cultures have shown no growth. He is hemodynamically stable. His afebrile. 09/05/2020, the patient has advanced ALS and the patient is being seen in follow-up. He had respiratory tract infection, excessive respiratory secretions, and subsequent respiratory failure was having difficulties in caring vascular secretions. Note that since his hospitalization, the patient was given a combination of bronchodilators, he was getting chest PT, and was getting flutter valve and incentive spirometer and and chest percussion therapy. No no major improvement. Chest x-ray showed no evidence of any acute pneumonia. His pro calcitonin level was nonelevated. Nevertheless, in view of his very borderline condition, recovered and with bronchodilators and steroids. We also using any AVAPS machine to assist his breathing at the volume of 400. He was using the machine throughout the night yesterday and 1 during the day. He thinks this is helping. He is having sinus. He needs help with activities of daily life. Objective - Vital Signs Vital signs: Vital Signs Temp 98.9 F 09/05/20 07:33 Pulse 123 H 09/05/20 09:34 Resp 22 09/05/20 07:33 BP 113/78 09/05/20 07:33 Pulse Ox 92 L 09/05/20 07:33 Intake & Output 09/04/20 09/05/20 09/05/20 18:59 06:59 18:59 Intake Total 650 Output Total 960 600 250 Balance -960 50 -250 Weight 72.575 kg Intake: IV 500 Sodium Chloride 0.9% 1, 500 000 ml @ 500 mls/hr IV . Q2H [facility] Rx#:[id number] Oral 150 Output: Urine 960 600 250 Other: Voiding Method External Catheter External Catheter Urinal # Bowel Movements 1 - Exam GENERAL EXAM: Alert, very pleasant 55-year-old white male, on AVAPS 400cc HEAD: Normocephalic/atraumatic. EYES: Normal reaction of pupils, equal size. Conjunctiva pink, sclera white. NOSE: Clear with pink turbinates. THROAT: No erythema or exudates. NECK: No masses, no JVD, no thyroid enlargement, no adenopathy. CHEST: No chest wall deformity. Symmetrical expansion. LUNGS: Equal air entry with diminished sounds at bilateral bases, with scattered rhonchi mainly in the upper airways CVS: Regular rate and rhythm, normal S1 and S2, no gallops, no murmurs, no rubs ABDOMEN: Soft, nontender. No hepatosplenomegaly, normal bowel sounds, no guarding or rigidity. EXTREMITIES: No clubbing, mild pretibial and pedal edema, no cyanosis, 2+ pulses and upper and lower extremities. MUSCULOSKELETAL: Muscle strength and tone normal. SPINE: No scoliosis or deformity SKIN: No rashes CENTRAL NERVOUS SYSTEM: Alert and oriented -3. No focal deficits, tone is normal in all 4 extremities. PSYCHIATRIC: Alert and oriented -3. Appropriate affect. Intact judgment and insight. - Labs CBC & Chem 7: 09/03/20 11:13 09/03/20 11:13 Labs: Abnormal Lab Results - Last 24 Hours (Table) 09/04/20 09/04/20 09/05/20 Range/Units 16:37 19:39 06:42 POC Glucose (mg/dL) 127 H 123 H 110 H (75-99) mg/dL Microbiology - Last 24 Hours (Table) 08/29/20 12:18 Blood Culture - Final Blood No Growth after 144 hours 08/29/20 12:18 Blood Culture - Final Blood No Growth after 144 hours Assessment and Plan Plan: #1. Acute hypoxemic respiratory failure secondary to tracheobronchitis with significant amount of mucus causing respiratory compromise as the patient has i mpaired ability to cough and the rest or secretions due to his underlying ALS and neuromuscular weakness. He is compared to yesterday. He is currently on a AVAPS noninvasive mechanical ventilator with tidal volume of 400. This is helped quite a bit yesterday and we are going to use it throughout the night he is quiet synchronous with the mechanical ventilator for now. He is using a fullface mask. Oxygen is also being supplemented with an FiO2 of 60% is on bronchodilators. On Levaquin. Is on prednisone burst taper. #2. Recent admission for pneumonia and pulmonary embolism, on Xarelto #3. Advanced ALS #4. History of asthma, on Symbicort and ProAir in the outpatient setting. #5. History of depression Plan: Continue AVAPS mode of noninvasive mechanical ventilation with a tidal volume of 400 and FiO2 of 60% Aspiration precautions Continue same antibiotics This 40 based on his advanced neuromuscular weakness secondary to ALS. He is having significant respiratory insufficiency. We'll assist him with noninvasive mechanical ventilation. His postoperative a DNR/DNI. Continue Levaquin. Continue prednisone. Continue bronchodilators. Chest percussion, vibration, and pulmonary toileting.
[2020-09-05 11:34] LABS: Glucose,Whole Blood 88 mg/dL (75-99)
--- NOTE | 2020-09-05 13:22 | P.PN ---
Subjective Progress Note Date: 09/05/20 Patient is feeling slightly better today. He was on 10 L of oxygen via high flow nasal cannula when I saw him. Heart rate around 107. Yesterday, patient became tachycardic with heart rate up to 150s in sinus tachycardia. He was placed on BiPAP with improvement of his heart rate. He told me that he took the BiPAP off around 1 in the morning. Objective - Vital Signs Vital signs: Vital Signs Temp 98.9 F 09/05/20 07:33 Pulse 116 H 09/05/20 12:18 Resp 22 09/05/20 07:33 BP 113/78 09/05/20 07:33 Pulse Ox 92 L 09/05/20 07:33 Intake & Output 09/04/20 09/05/20 09/05/20 18:59 06:59 18:59 Intake Total 650 Output Total 960 600 250 Balance -960 50 -250 Weight 72.575 kg Intake: IV 500 Sodium Chloride 0.9% 1, 500 000 ml @ 500 mls/hr IV . Q2H [facility] Rx#:[id number] Oral 150 Output: Urine 960 600 250 Other: Voiding Method External Catheter External Catheter Urinal # Bowel Movements 1 - Exam General: The patient is awake and alert, in no distress Eye: there is normal conjunctiva bilaterally. Neck: The neck is supple, there is no JVD. Cardiovascular: Normal S1-S2, no S3-S4, no murmurs. Respiratory: Lungs clear to auscultation bilaterally Gastrointestinal: Abdomen is soft, nontender Musculoskeletal: There is no pedal edema. Neurological:. Speech is normal. Skin: Skin is warm and dry - Labs CBC & Chem 7: 09/03/20 11:13 09/03/20 11:13 Labs: Abnormal Lab Results - Last 24 Hours (Table) 09/04/20 09/04/20 09/05/20 Range/Units 16:37 19:39 06:42 POC Glucose (mg/dL) 127 H 123 H 110 H (75-99) mg/dL Microbiology - Last 24 Hours (Table) 08/29/20 12:18 Blood Culture - Final Blood No Growth after 144 hours 08/29/20 12:18 Blood Culture - Final Blood No Growth after 144 hours Assessment and Plan Assessment: Patient is a 55-year-old male with recently diagnosed ALS who is wheelchair/ Hospital bedbound, diverticulitis, and asthma who presented to the hospital secondary to worsening cough and shortness of breath. He was recently hospitalized here from 08/22 through 08/25 and found to have a small left lower lobe pulmonary embolism as well as possible left-sided pneumonia. He was d ischarged home on a course of Cefdinir and Zithromax, he was placed on Xarelto for his PE. Patient said that he was unable to use his CPAP at night at home secondary to persistent cough. He is currently awaiting a Dona lift and motorized wheelichair at home (Ordered by his outpatient nuerologist from [facility] in [place]). He has his home Trilogy ventilator for nighttime use. He does not have a percussion vest or suction at home. He was evaluated in the ER and admitted to the hospital for further management of his medical problems noted below. Pneumonia with sepsis on presentation now resolved Acute hypoxic respiratory failure Chest congestion with suspected mucus plugging - Patient finish 7 days course of IV vancomycin and cefepime. He also finished a course of Keflex and azithromycin prior to this admission. - Pro calcitonin only slightly elevated and unchanged compared to last admission - Sputum culture showed normal jamie - Patient is not a candidate for bronchoscopy with concern that he may end up on mechanical ventilation secondary to sedation and his poor baseline status - COVID negative during last admission - Mucinex twice a day and Tessalon Perles as needed - bronchodilators - percussion vest and/or chest physiotherapy - Infectious disease and pulmonary following Recent pulmonary embolism - Xarelto ALS - supporative care HX asthma, diverticulitis CODE STATUS: Patient is DO NOT RESUSCITATE/DO NOT INTUBATE Today, I reviewed his medication list and lab work results. I advised to use the BiPAP machine intermittently throughout the days. Will discuss further with pulmonary. Patient aware of guarded prognosis.
[2020-09-05 16:55] LABS: Glucose,Whole Blood 117 mg/dL (75-99)
[2020-09-05] MEDS: guaiFENesin-DM 100-10MG/5ML 10 ML CUP PO PRN (17:39)
[2020-09-05] MEDS: LEVOFLOXACIN 750 MG TAB PO SCH (17:39)
[2020-09-05 20:47] LABS: Glucose,Whole Blood 101 mg/dL (75-99)
[2020-09-05] MEDS: polyethylene glycoL 3350 17 GM POWD.PACK PO SCH ×2 (21:28→22:31)
[2020-09-06] MEDS: IPRATROPIUM-ALBUTEROL 3 ML NEB INHALATION SCH ×3 (04:35→07:18)
--- NOTE | 2020-09-06 06:49 | PN ---
PROGRESS NOTE DATE OF SERVICE: 09/05/2020 REASON FOR FOLLOWUP: Pneumonia. INTERVAL HISTORY: The patient is afebrile. The patient is breathing comfortably. The patient denies having any chest pain. The patient denies worsening cough. Unable to cough up any sputum. No nausea. No vomiting. No abdominal pain or diarrhea. PHYSICAL EXAMINATION: Blood pressure is 106/60 with a pulse of 113, temperature 98.8. She is 97% on 10 L high-flow oxygen. General description is a middle-aged male lying in bed in no distress. Respiratory system: Unlabored breathing with decreased intensity of breath sounds. No wheeze. Heart: S1, S2. Regular rate and rhythm. Abdomen: Soft, no tenderness. LABS: Lactic acid 1.2. Sputum culture negative. Blood cultures have been negative. DIAGNOSTIC IMPRESSION/PLAN: Patient admitted to the hospital with shortness of breath and cough, multifactorial, concerning for pneumonia. Sputum has been negative. Patient is covered on Levaquin to continue along with steroids and bronchodilator and monitor clinical course closely. MMODL / IJN: [id number] / MTDD
[2020-09-06 07:08] LABS: Glucose,Whole Blood 93 mg/dL (75-99)
[2020-09-06] MEDS: FORMOTEROL FUMARATE 20 MCG/2 ML NEBU INHALATION SCH ×2 (07:18→20:28)
[2020-09-06] MEDS: BUDESONIDE 1 MG/2 ML NEBU INHALATION SCH ×2 (07:18→20:29)
[2020-09-06] MEDS: INSULIN ASPART (NovoLOG) 100 UNIT/ML VIAL SQ SCH ×4 (07:30→22:04)
[2020-09-06 08:41] LABS: Basophils % (A) 0 %; Eosinophils # (A) 0.1 k/uL (0-0.7); Eosinophils % (A) 1 %; HCT 43.2 % (39.0-53.0); HGB 14.4 gm/dL (13.0-17.5); Lymphocytes # (A) 1.1 k/uL (1.0-4.8); Lymphocytes % (A) 6 %; MCH 28.4 pg (25.0-35.0); MCHC 33.4 g/dL (31.0-37.0); MCV 85.1 fL (80.0-100.0); Monocytes # (A) 1.1 k/uL (0-1.0); Monocytes % (A) 6 %; Neutrophils # (A) 14.7 k/uL (1.3-7.7); Neutrophils % (A) 86 %; Platelet Count 385 k/uL (150-450); RBC 5.07 m/uL (4.30-5.90); RDW 12.9 % (11.5-15.5); WBC 17.1 k/uL (3.8-10.6)
[2020-09-06 08:51] LABS: ALT 19 U/L (4-49); AST 22 U/L (17-59); African American GFR (CKD) >90 (>60 ml/min/1.73 sqM); Albumin 3.2 g/dL (3.5-5.0); Albumin/Globulin Ratio 1.3; Alkaline Phosphatase 78 U/L (38-126); Anion Gap 8 mmol/L; Blood Urea Nitrogen 13 mg/dL (9-20); Calcium 8.8 mg/dL (8.4-10.2); Carbon Dioxide 30 mmol/L (22-30); Chloride 96 mmol/L (98-107); Globulin 2.4 g/dL; Glucose 95 mg/dL (74-99); Non-African American GFR(CKD) >90 (>60 ml/min/1.73 sqM); Potassium 4.1 mmol/L (3.5-5.1); Sodium 134 mmol/L (137-145); Total Bilirubin 0.8 mg/dL (0.2-1.3); Total Protein 5.6 g/dL (6.3-8.2)
--- NOTE | 2020-09-06 09:41 | XR ---
EXAMINATION TYPE: XR chest 1V portable DATE OF EXAM: 09/06/2020 CLINICAL HISTORY: f/u still hypoxic. TECHNIQUE: Portable semiupright view of the chest. COMPARISON: 09/02/2020 FINDINGS: Cervical spine fixation hardware. The cardiomediastinal silhouette is within normal limits for size. Pulmonary vasculature is normal. Left basilar airspace opacity and blunting of the costoph renic angle appears similar. No pneumothorax seen. No acute displaced osseous fracture. IMPRESSION: Small left pleural effusion and left basilar airspace opacity appears similar to 09/02/2020.
--- NOTE | 2020-09-06 09:42 | P.PN ---
Subjective Progress Note Date: 09/06/20 Patient was seen and evaluated by me this morning. There is no significant change in his overall status. He is still on 10 L of oxygen via high flow nasal cannula. He was able to keep the BiPAP on for a few hours overnight but then removed it due to discomfort. Patient is still tachycardic with a heart rate of 120s to 130s. He denies palpitation and heart pounding. No documented fever. Slight worsening of leukocytosis this morning. Lactic acid was normal. Objective - Vital Signs Vital signs: Vital Signs Temp 97.9 F 09/06/20 07:32 Pulse 132 H 09/06/20 07:40 Resp 20 09/06/20 07:32 BP 105/76 09/06/20 07:32 Pulse Ox 93 L 09/06/20 07:32 Intake & Output 09/05/20 09/06/20 09/06/20 18:59 06:59 18:59 Intake Total 200 150 Output Total 250 300 Balance -50 -150 Intake: Oral 200 150 Output: Urine 250 300 Other: Voiding Method Urinal Urinal # Voids 275 - Exam General: The patient is awake and alert, in no distress Eye: there is normal conjunctiva bilaterally. Neck: The neck is supple, there is no JVD. Cardiovascular: Normal S1-S2, no S3-S4, no murmurs. Respiratory: Lungs clear to auscultation bilaterally Gastrointestinal: Abdomen is soft, nontender Musculoskeletal: There is no pedal edema. Neurological:. Speech is normal. Skin: Skin is warm and dry - Labs CBC & Chem 7: 09/06/20 08:13 09/06/20 08:13 Labs: Abnormal Lab Results - Last 24 Hours (Table) 09/05/20 09/05/20 09/06/20 Range/Units 16:43 20:44 08:13 WBC 17.1 H (3.8-10.6) k/uL Neutrophils # 14.7 H (1.3-7.7) k/uL Monocytes # 1.1 H (0-1.0) k/uL Sodium (137-145) mmol/L Chloride (98-107) mmol/L Creatinine (0.66-1.25) mg/dL POC Glucose (mg/dL) 117 H 101 H (75-99) mg/dL Total Protein (6.3-8.2) g/dL Albumin (3.5-5.0) g/dL 09/06/20 Range/Units 08:13 WBC (3.8-10.6) k/uL Neutrophils # (1.3-7.7) k/uL Monocytes # (0-1.0) k/uL Sodium 134 L (137-145) mmol/L Chloride 96 L (98-107) mmol/L Creatinine 0.25 L (0.66-1.25) mg/dL POC Glucose (mg/dL) (75-99) mg/dL Total Protein 5.6 L (6.3-8.2) g/dL Albumin 3.2 L (3.5-5.0) g/dL Assessment and Plan Assessment: Patient is a 55-year-old male with recently diagnosed ALS who is wheelchair/Hospital bedbound, diverticulitis, and asthma who presented to the hospital secondary to worsening cough and shortness of breath. He was recently hospitalized here from 08/22 through 08/25 and found to have a small left lower lobe pulmonary embolism as well as possible left-sided pneumonia. He was discharged home on a course of Cefdinir and Zithromax, he was placed on Xarelto for his PE. Patient said that he was unable to use his CPAP at night at home secondary to persistent cough. He is currently awaiting a Dona lift and motorized wheelichair at home (Ordered by his outpatient nuerologist from [facility]). He has his home Tri logy ventilator for nighttime use. He does not have a percussion vest or suction at home. He was evaluated in the ER and admitted to the hospital for further management of his medical problems noted below. Pneumonia with sepsis on presentation now resolved Acute hypoxic respiratory failure Chest congestion with suspected mucus plugging Sinus tachycardia, reactive to hypoxia and possibly worsened by albuterol use - Patient finish 7 days course of IV vancomycin and cefepime during this admissi on. He also finished a course of Keflex and azithromycin prior to this admission. - Pro calcitonin only slightly elevated and unchanged compared to last admission - Sputum culture showed normal jamie, blood culture negative - Patient is not a candidate for bronchoscopy with concern that he may end up on mechanical ventilation secondary to sedation and his poor baseline status - COVID negative during last admission - Mucinex twice a day and Tessalon Perles as needed - bronchodilators - percussion vest and/or chest physiotherapy - Infectious disease and pulmonary following Recent pulmonary embolism - Xarelto 15 mg twice daily to be transitioned to 20 mg daily on 09/13/2020 ALS - supporative care, prognosis guarded, patient following with neurology at [facility] HX asthma, diverticulitis CODE STATUS: Patient is DO NOT RESUSCITATE/DO NOT INTUBATE Today, I reviewed his medication list and lab work results. I advised to continue use the BiPAP machine intermittently throughout the day. Change bronchodilators as needed Start metoprolol 25 mg twice daily Patient aware of guarded prognosis.
[2020-09-06] MEDS: predniSONE 20 MG TAB PO SCH (10:20)
[2020-09-06] MEDS: METOPROLOL TARTRATE 25 MG TAB PO SCH ×2 (10:20→22:04)
[2020-09-06] MEDS: Riluzole [Rilutek] PO SCH ×2 (10:20→22:03)
[2020-09-06] MEDS: RIVAROXABAN 15 MG TAB PO SCH ×2 (10:21→22:03)
[2020-09-06] MEDS: IPRATROPIUM-ALBUTEROL 3 ML NEB INHALATION PRN ×3 (10:55→20:29)
[2020-09-06 11:38] LABS: Glucose,Whole Blood 91 mg/dL (75-99)
--- NOTE | 2020-09-06 12:49 | P.PN ---
Progress Note - Text Progress Note Date: 09/06/20 Today, I had a meeting with the patient and his to discuss goals of care. They both understand that a list as a terminal illness and is being getting progressively worse. We discussed palliative care and hospice care. I explained to them hospice philosophy in terms of focusing on comfort not coming back to the hospital for further tests or aggressive treatment. Patient's had a lot of questions regarding the possibility of doing hospice at home if she is able to get enough help versus going to a fpc facility for hospice. I also offered them the hospice house as an option. I would with the consult for hospice for further discussion. I answered all of their questions to their satisfaction. Patient with status is DO NOT RESUSCITATE/DO NOT INTUBATE Time spent >16 minutes
--- NOTE | 2020-09-06 12:59 | P.PN ---
Subjective Progress Note Date: 09/06/20 Principal diagnosis: Bilateral pneumonia This is a very pleasant 55-year-old gentleman with advanced ALS and history of asthma. He does have noninvasive positive pressure ventilation device at home though he had been intolerant to it the last couple weeks while sick. He is rec ently here with pneumonia and pulmonary embolism and started on Xarelto and discharged home on Omnicef. He had been getting better however yesterday he became significantly more short of breath and presented to the emergency room for the same. He is requiring 6 L high flow nasal cannula to maintain O2 saturations in the 90s. He is seen today in consultation on the regular medical floor. He is currently sitting up in bed. Awake and alert in no acute distress. Some dyspnea with conversation. Loose nonproductive cough. White count 11.2. Hemoglobin 12.2. Sodium 137. Potassium 3.9. Creatinine 0.2. He's been initiated on DuoNeb inhalations, Mucinex, Symbicort. Antibiotics in the form of cefepime. Anticoagulated with Xarelto. On 08/31/2020 patient seen in follow-up on medical surgical floor. He is awake and alert, answers questions appropriately, however his oxygenation has wor sened, and his FiO2 requirement has increased from 2 L currently to 7 L per nasal cannula. His O2 saturation 7 L of oxygen is currently 97%. To be breathing comfortably, he does have a weak congested cough, no hemoptysis, no chest pain. His been afebrile, hemodynamically his been stable. Patient is currently on a combination of cefepime and vancomycin, culture has been sent, and is pending at this time, blood cultures have shown no growth. Patient has a trilogy ventilator at home, and we asked his to possibly bring the device to the hospital or temperatures and send the patient so we can review his settings. Currently patient is breathing comfortably. Any acute distress. Labs today. Today's chest x-ray shows slight worsening in the posterior left basilar airspace disease. On 09/01/2020 patient seen in follow-up on medical surgical floor. He is currently on 6 L of oxygen his pulse ox of 97%. Has a weak congested cough, he received a flutter valve which she needs assistance with using as the patient is unable to lift his arms, however with assistance he is able to use the flutter valve which this help him expectorate some whitish colored phlegm. His had no fever or chills, his white blood cell count is improving on his lab work. No new set of blood work today, his had no fever or chills, he is on recommendation of cefepime and vancomycin. He is awake and alert, oriented 3, he is on linezolid, lung sounds are positive for some scattered rhonchi, he is tolerating regular diet with aspiration precautions. His sputum culture showed the many PMNs, epithelial cells, gram-negative bacilli and gram-positive cocci. No altered Mentation, vital signs have been stable On 09/02/2020 patient is seen in follow-up on medical surgical floor. His oxygen requirements have significantly increased, he was placed on 100% nonrebreather today. He is awake and alert, oriented 3. His cough is very weak, he is not able to clear much phlegm. When he is able to bring up some phlegm it is mostly white in color. No fever or chills overnight, he is in sinus mechanism, a tachycardic with a rate in the 114-118 range, blood pressure stable. He remains on antibiotics the form of cefepime and vancomycin, his chest x-ray findings are essentially stable, correlating for left lower lobe atelectasis versus pneumonia and associated pleural effusion. His pro calcitonin level was low at 0.12 On 09/03/2020 patient seen in follow-up on medical surgical floor. He is up in the chair today, he is currently on 9 L of oxygen per high flow nasal cannula, still says that his chest is tight, but overall he sounds better, and FiO2 is down to 9 L from 100% nonrebreather on yesterday's exam, patient remains on accommodation of cefepime and vancomycin, so far his blood and sputum cultures have shown no growth. Patient has been afebrile, yesterday's chest x-ray showed stable findings with left lower lobe atelectasis and associated small pleural effusion. Sounds less congested on today's exam, he is receiving chest physiotherapy twice a day, staff is assisting with her incentive spirometer, patient is able to achieve 500-750 on it today. He is using his flutter valve. On 09/06/2020 patient seen in follow-up on medical surgical floor. His oxygen flows currently at 10 L, his pulse ox is 93%, he did wear AVAPS last night, however he did not wear it very long. He was having difficult time tolerating it. His AVAPS settings are targeted volume of 400, EPAP of 5, minimal pressure of 6, maximum pressure of 14, and FiO2 of 60%. He is currently breathing comfortably, though has a congested cough, however sounds less congested on today's exam. His chest x-ray today shows small left pleural effusion and left basilar airspace opacity without significant change compared to previous chest x-ray from 09/02/2020. Denies any chest discomfort. No hemoptysis. Current antibiotic coverage is with Levaquin. ID service is following. His sputum and blood cultures have been negative. Today's labs have been reviewed, his white blood cell count is 17.1, hemoglobin is 14.4, sodium is 134, potassium is 96, progressive his electrolytes and renal profile are unremarkable. His is at the bedside, patient is alert and oriented, mentation, vital signs have been st able. Had no fever or chills. Objective - Vital Signs Vital signs: Vital Signs Temp 97.9 F 09/06/20 07:32 Pulse 128 H 09/06/20 11:03 Resp 20 09/06/20 08:45 BP 105/76 09/06/20 07:32 Pulse Ox 93 L 09/06/20 07:32 Intake & Output 09/05/20 09/06/20 09/06/20 18:59 06:59 18:59 Intake Total 200 150 Output Total 250 300 Balance -50 -150 Intake: Oral 200 150 Output: Urine 250 300 Other: Voiding Method Urinal Urinal Urinal # Voids 275 - Exam GENERAL EXAM: Alert, very pleasant 55-year-old white male, on 10 L per high flow nasal cannula of 93% have a weak congested cough, comfortable in no apparent distress. HEAD: Normocephalic/atraumatic. EYES: Normal reaction of pupils, equal size. Conjunctiva pink, sclera white. NOSE: Clear with pink turbinates. THROAT: No erythema or exudates. NECK: No masses, no JVD, no thyroid enlargement, no adenopathy. CHEST: No chest wall deformity. Symmetrical expansion. LUNGS: Equal air entry with diminished sounds at bilateral bases, with scattered rhonchi mainly in the upper airways CVS: Regular rate and rhythm, normal S1 and S2, no gallops, no murmurs, no rubs ABDOMEN: Soft, nontender. No hepatosplenomegaly, normal bowel sounds, no guarding or rigidity. EXTREMITIES: No clubbing, mild pretibial and pedal edema, no cyanosis, 2+ pulses and upper and lower extremities. MUSCULOSKELETAL: Muscle strength and tone normal. SPINE: No scoliosis or deformity SKIN: No rashes CENTRAL NERVOUS SYSTEM: Alert and oriented -3. No focal deficits, tone is normal in all 4 extremities. PSYCHIATRIC: Alert and oriented -3. Appropriate affect. Intact judgment and insight. - Labs CBC & Chem 7: 09/06/20 08:13 09/06/20 08:13 Labs: Abnormal Lab Results - Last 24 Hours (Table) 09/05/20 09/05/20 09/06/20 Range/Units 16:43 20:44 08:13 WBC 17.1 H (3.8-10.6) k/uL Neutrophils # 14.7 H (1.3-7.7) k/uL Monocytes # 1.1 H (0-1.0) k/uL Sodium (137-145) mmol/L Chloride (98-107) mmol/L Creatinine (0.66-1.25) mg/dL POC Glucose (mg/dL) 117 H 101 H (75-99) mg/dL Total Protein (6.3-8.2) g/dL Albumin (3.5-5.0) g/dL 09/06/20 Range/Units 08:13 WBC (3.8-10.6) k/uL Neutrophils # (1.3-7.7) k/uL Monocytes # (0-1.0) k/uL Sodium 134 L (137-145) mmol/L Chloride 96 L (98-107) mmol/L Creatinine 0.25 L (0.66-1.25) mg/dL POC Glucose (mg/dL) (75-99) mg/dL Total Protein 5.6 L (6.3-8.2) g/dL Albumin 3.2 L (3.5-5.0) g/dL Assessment and Plan Plan: Assessment: #1. Acute hypoxemic respiratory failure secondary to bilateral focal airspace disease #2. Recent admission for pneumonia and pulmonary embolism, discharged on Ceftin and Xarelto #3. Advanced ALS #4. History of asthma, on Symbicort and ProAir in the outpatient setting. #5. History of depression Plan: Continue antibiotics per ID service recommendations All cultures have been negative thus far Continue weaning FiO2 Currently down to 10 L Was not able to tolerate AVAPS for very long last night Continue Xarelto, patient will likely need lifelong anticoagulation Overall prognosis is poor Social work is following and patient's is considering palliative care She is considering placement into ECF, due to patient's increased physical needs, and her trying to maintain full-time employment Once the patient's FiO2 is down to around 5 L patient could probably be considered for discharge home I performed a history & physical examination of the patient and discussed their management with my nurse practitioner, Megan Gutierrez. I reviewed the nurse practitioner's note and agree with the documented findings and plan of care. Lung sounds are positive for diminished breath sounds. The findings and the impression was discussed with the patient. I attest to the documentation by the nurse practitioner. Time with Patient: Less than 30
[2020-09-06 16:35] LABS: Glucose,Whole Blood 105 mg/dL (75-99)
[2020-09-06] MEDS: LEVOFLOXACIN 750 MG TAB PO SCH (17:37)
[2020-09-06 20:11] LABS: Glucose,Whole Blood 131 mg/dL (75-99)
--- NOTE | 2020-09-06 23:05 | PN ---
PROGRESS NOTE DATE OF SERVICE: 09/06/2020 REASON FOR FOLLOWUP: Pneumonia. INTERVAL HISTORY: The patient is afebrile. The patient is still complaining of shortness of breath and difficulty coughing up any sputum. No chest pain. No nausea, no vomiting. No abdominal pain, no diarrhea. PHYSICAL EXAMINATION: Blood pressure 125/73, pulse 118, temperature 98.2. He is 98% on 15 L high-flow oxygen. General description is an elderly male up in the bed in no distress. Respiratory system: Unlabored breathing, coarse breath sounds bilaterally. No wheeze. Heart S1, S2. Regular rate and rhythm. Abdomen is soft, no tenderness. LABS: Hemoglobin is 14.3, white count 17.9, BUN of 13, creatinine 0.5. DIAGNOSTIC IMPRESSION/PLAN: Patient is admitted to the hospital with pneumonia. Initial concern for possible nosocomial pathogen. Sputum has been negative for resistant pathogen. Chest x-ray this morning showed small effusion, left basilar opacity without any change. Continue with Levaquin along with respiratory support and monitor clinical course closely. MMODL / IJN: [id number] /
[2020-09-07] MEDS: ACETAMINOPHEN TAB 325 MG TAB PO PRN (01:17)
[2020-09-07] MEDS: IPRATROPIUM-ALBUTEROL 3 ML NEB INHALATION PRN ×4 (04:01→20:16)
[2020-09-07 07:09] LABS: Glucose,Whole Blood 110 mg/dL (75-99)
[2020-09-07] MEDS: INSULIN ASPART (NovoLOG) 100 UNIT/ML VIAL SQ SCH (07:28)
[2020-09-07] MEDS: METOPROLOL TARTRATE 25 MG TAB PO SCH ×2 (07:29→18:23)
[2020-09-07] MEDS: predniSONE 20 MG TAB PO SCH (07:29)
[2020-09-07] MEDS: Riluzole [Rilutek] PO SCH ×2 (07:29→20:57)
[2020-09-07] MEDS: RIVAROXABAN 15 MG TAB PO SCH ×2 (07:30→20:57)
[2020-09-07] MEDS: FORMOTEROL FUMARATE 20 MCG/2 ML NEBU INHALATION SCH ×2 (08:34→20:16)
[2020-09-07] MEDS: BUDESONIDE 1 MG/2 ML NEBU INHALATION SCH ×2 (08:34→20:16)
[2020-09-07 11:28] LABS: Glucose,Whole Blood 112 mg/dL (75-99)
--- NOTE | 2020-09-07 12:15 | P.PN ---
Subjective Progress Note Date: 09/07/20 Principal diagnosis: Bilateral pneumonia This is a very pleasant 55-year-old gentleman with advanced ALS and history of asthma. He does have noninvasive positive pressure ventilation device at home though he had been intolerant to it the last couple weeks while sick. He is rec ently here with pneumonia and pulmonary embolism and started on Xarelto and discharged home on Omnicef. He had been getting better however yesterday he became significantly more short of breath and presented to the emergency room for the same. He is requiring 6 L high flow nasal cannula to maintain O2 saturations in the 90s. He is seen today in consultation on the regular medical floor. He is currently sitting up in bed. Awake and alert in no acute distress. Some dyspnea with conversation. Loose nonproductive cough. White count 11.2. Hemoglobin 12.2. Sodium 137. Potassium 3.9. Creatinine 0.2. He's been initiated on DuoNeb inhalations, Mucinex, Symbicort. Antibiotics in the form of cefepime. Anticoagulated with Xarelto. On 08/31/2020 patient seen in follow-up on medical surgical floor. He is awake and alert, answers questions appropriately, however his oxygenation has wor sened, and his FiO2 requirement has increased from 2 L currently to 7 L per nasal cannula. His O2 saturation 7 L of oxygen is currently 97%. To be breathing comfortably, he does have a weak congested cough, no hemoptysis, no chest pain. His been afebrile, hemodynamically his been stable. Patient is currently on a combination of cefepime and vancomycin, culture has been sent, and is pending at this time, blood cultures have shown no growth. Patient has a trilogy ventilator at home, and we asked his to possibly bring the device to the hospital or temperatures and send the patient so we can review his settings. Currently patient is breathing comfortably. Any acute distress. Labs today. Today's chest x-ray shows slight worsening in the posterior left basilar airspace disease. On 09/01/2020 patient seen in follow-up on medical surgical floor. He is currently on 6 L of oxygen his pulse ox of 97%. Has a weak congested cough, he received a flutter valve which she needs assistance with using as the patient is unable to lift his arms, however with assistance he is able to use the flutter valve which this help him expectorate some whitish colored phlegm. His had no fever or chills, his white blood cell count is improving on his lab work. No new set of blood work today, his had no fever or chills, he is on recommendation of cefepime and vancomycin. He is awake and alert, oriented 3, he is on linezolid, lung sounds are positive for some scattered rhonchi, he is tolerating regular diet with aspiration precautions. His sputum culture showed the many PMNs, epithelial cells, gram-negative bacilli and gram-positive cocci. No altered Mentation, vital signs have been stable On 09/02/2020 patient is seen in follow-up on medical surgical floor. His oxygen requirements have significantly increased, he was placed on 100% nonrebreather today. He is awake and alert, oriented 3. His cough is very weak, he is not able to clear much phlegm. When he is able to bring up some phlegm it is mostly white in color. No fever or chills overnight, he is in sinus mechanism, a tachycardic with a rate in the 114-118 range, blood pressure stable. He remains on antibiotics the form of cefepime and vancomycin, his chest x-ray findings are essentially stable, correlating for left lower lobe atelectasis versus pneumonia and associated pleural effusion. His pro calcitonin level was low at 0.12 On 09/03/2020 patient seen in follow-up on medical surgical floor. He is up in the chair today, he is currently on 9 L of oxygen per high flow nasal cannula, still says that his chest is tight, but overall he sounds better, and FiO2 is down to 9 L from 100% nonrebreather on yesterday's exam, patient remains on accommodation of cefepime and vancomycin, so far his blood and sputum cultures have shown no growth. Patient has been afebrile, yesterday's chest x-ray showed stable findings with left lower lobe atelectasis and associated small pleural effusion. Sounds less congested on today's exam, he is receiving chest physiotherapy twice a day, staff is assisting with her incentive spirometer, patient is able to achieve 500-750 on it today. He is using his flutter valve. On 09/06/2020 patient seen in follow-up on medical surgical floor. His oxygen flows currently at 10 L, his pulse ox is 93%, he did wear AVAPS last night, however he did not wear it very long. He was having difficult time tolerating it. His AVAPS settings are targeted volume of 400, EPAP of 5, minimal pressure of 6, maximum pressure of 14, and FiO2 of 60%. He is currently breathing comfortably, though has a congested cough, however sounds less congested on today's exam. His chest x-ray today shows small left pleural effusion and left basilar airspace opacity without significant change compared to previous chest x-ray from 09/02/2020. Denies any chest discomfort. No hemoptysis. Current antibiotic coverage is with Levaquin. ID service is following. His sputum and blood cultures have been negative. Today's labs have been reviewed, his white blood cell count is 17.1, hemoglobin is 14.4, sodium is 134, potassium is 96, progressive his electrolytes and renal profile are unremarkable. His is at the bedside, patient is alert and oriented, mentation, vital signs have been st able. Had no fever or chills. On 09/07/2020 patient seen in follow-up on medical surgical floor. He is currently up to 13 L of oxygen pulse ox is 93%, he is ALERT, ORIENTED 3, he did wear AVAPS briefly last night, he has not been wearing it tenuously through the whole night. She's been switched back on fourth 2 high flow nasal cannula. Appears to be breathing comfortably right now, appears to be in no acute distress, his cough is weak, lung sounds are positive for some scattered rhonchi, but overall sounds less congested, he continues on antibiotics breathing treatments and oral steroids. He remains on oral anticoagulation. Current antibiotic coverage includes Levaquin. ID service is following, his blood and sputum cultures have shown no growth. Patient's was here yesterday, she requested social work consultation and to look into long-term care facility placement. After some discussion hospice was suggested to the family, and patient's family and the patient are supposed to have a meeting with hospice today Objective - Vital Signs Vital signs: Vital Signs Temp 97.5 F L 09/07/20 07:45 Pulse 101 H 09/07/20 08:56 Resp 20 09/07/20 08:00 BP 102/72 09/07/20 07:45 Pulse Ox 93 L 09/07/20 08:34 Intake & Output 09/06/20 09/07/20 09/07/20 18:59 06:59 18:59 Output Total 100 150 150 Balance -100 -150 -150 Output: Urine 100 150 150 Other: Voiding Method Urinal Urinal Urinal # Voids 275 - Exam GENERAL EXAM: Alert, very pleasant 55-year-old white male, on 15 L per high flow nasal cannula of 93% have a weak congested cough, comfortable in no apparent distress. HEAD: Normocephalic/atraumatic. EYES: Normal reaction of pupils, equal size. Conjunctiva pink, sclera white. NOSE: Clear with pink turbinates. THROAT: No erythema or exudates. NECK: No masses, no JVD, no thyroid enlargement, no adenopathy. CHEST: No chest wall deformity. Symmetrical expansion. LUNGS: Equal air entry with diminished sounds at bilateral bases, with scattered rhonchi mainly in the upper airways CVS: Regular rate and rhythm, normal S1 and S2, no gallops, no murmurs, no rubs ABDOMEN: Soft, nontender. No hepatosplenomegaly, normal bowel sounds, no guarding or rigidity. EXTREMITIES: No clubbing, mild pretibial and pedal edema, no cyanosis, 2+ pulses and upper and lower extremities. MUSCULOSKELETAL: Muscle strength and tone normal. SPINE: No scoliosis or deformity SKIN: No rashes CENTRAL NERVOUS SYSTEM: Alert and oriented -3. No focal deficits, tone is normal in all 4 extremities. PSYCHIATRIC: Alert and oriented -3. Appropriate affect. Intact judgment and insight. - Labs CBC & Chem 7: 09/06/20 08:13 09/06/20 08:13 Labs: Abnormal Lab Results - Last 24 Hours (Table) 09/06/20 09/06/20 09/07/20 Range/Units 16:34 20:09 07:07 POC Glucose (mg/dL) 105 H 131 H 110 H (75-99) mg/dL 09/07/20 Range/Units 11:26 POC Glucose (mg/dL) 112 H (75-99) mg/dL Assessment and Plan Plan: Assessment: #1. Acute hypoxemic respiratory failure secondary to bilateral focal airspace disease #2. Recent admission for pneumonia and pulmonary embolism, discharged on Ceftin and Xarelto #3. Advanced ALS #4. History of asthma, on Symbicort and ProAir in the outpatient setting. #5. History of depression Plan: Continue current medical treatment Wean FiO2 as tolerated, to maintain O2 saturations at or above 90% AVAPS as needed and at bedtime Overall prognosis is extremely poor The patient and his family are meeting with hospice today Try to wean the patient down to 10 L of oxygen or less for transfer home or to ECF under hospice care I performed a history & physical examination of the patient and discussed their management with my nurse practitioner, Megan Gutierrez. I reviewed the nurse practitioner's note and agree with the documented findings and plan of care. Lung sounds are positive for diminished breath sounds. The findings and the impression was discussed with the patient. I attest to the documentation by the nurse practitioner. Time with Patient: Less than 30
--- NOTE | 2020-09-07 13:28 | P.PN ---
Subjective Progress Note Date: 09/07/20 Patient is feeling well today. There is no significant improvement since yesterday. He is awaiting hospice meeting today with his to decide on going home tomorrow with hospice Objective - Vital Signs Vital signs: Vital Signs Temp 97.5 F L 09/07/20 07:45 Pulse 101 H 09/07/20 08:56 Resp 20 09/07/20 08:00 BP 102/72 09/07/20 07:45 Pulse Ox 93 L 09/07/20 08:34 Intake & Output 09/06/20 09/07/20 09/07/20 18:59 06:59 18:59 Output Total 100 150 150 Balance -100 -150 -150 Output: Urine 100 150 150 Other: Voiding Method Urinal Urinal Urinal # Voids 275 - Exam General: The patient is awake and alert, in no distress Eye: there is normal conjunctiva bilaterally. Neck: The neck is supple, there is no JVD. Cardiovascular: Normal S1-S2, no S3-S4, no murmurs. Respiratory: Lungs clear to auscultation bilaterally Gastrointestinal: Abdomen is soft, nontender Musculoskeletal: There is no pedal edema. Neurological:. Speech is normal. Skin: Skin is warm and dry - Labs CBC & Chem 7: 09/06/20 08:13 09/06/20 08:13 Labs: Abnormal Lab Results - Last 24 Hours (Table) 09/06/20 09/06/20 09/07/20 Range/Units 16:34 20:09 07:07 POC Glucose (mg/dL) 105 H 131 H 110 H (75-99) mg/dL 09/07/20 Range/Units 11:26 POC Glucose (mg/dL) 112 H (75-99) mg/dL Assessment and Plan Assessment: Patient is a 55-year-old male with recently diagnosed ALS who is wheelchair/Hospital bedbound, diverticulitis, and asthma who presented to the hospital secondary to worsening cough and shortness of breath. He was recently hospitalized here from 08/22 through 08/25 and found to have a small left lower lobe pulmonary embolism as well as possible left-sided pneumonia. He was discharged home on a course of Cefdinir and Zithromax, he was placed on Xarelto for his PE. Patient said that he was unable to use his CPAP at night at home secondary to persistent cough. He is currently awaiting a Dona lift and motorized wheelichair at home (Ordered by his outpatient nuerologist from [facility] in [place]). He has his home Trilogy ventilator for nighttime use. He does not have a percussion vest or suction at home. He was evaluated in the ER and admitted to the hospital for further management of his medical problems noted below. Pneumonia with sepsis on presentation now resolved Acute hypoxic respiratory failure Chest congestion with suspected mucus plugging Sinus tachycardia, reactive to hypoxia and possibly worsened by albuterol use - Patient finish 7 days course of IV vancomycin and cefepime during this admission. He also finished a course of Keflex and azithromycin prior to this admission. - Pro calcitonin only slightly elevated and unchanged compared to last admission - Sputum culture showed normal jamie, blood culture negative - Patient is not a candidate for bronchoscopy with concern that he may end up on mechanical ventilation secondary to sedation and his poor baseline status - COVID negative during last admission - Mucinex twice a day and Tessalon Perles as needed - bronchodilators - percussion vest and/or chest physiotherapy - Infectious disease and pulmonary following Recent pulmonary embolism - Xarelto 15 mg twice daily to be transitioned to 20 mg daily on 09/13/2020 ALS - supporative care, prognosis guarded, patient following with neurology at [facility] HX asthma, diverticulitis CODE STATUS: Patient is DO NOT RESUSCITATE/DO NOT INTUBATE Today, I reviewed his medication list and lab work results. I advised to continue use the BiPAP machine intermittently throughout the day. Awaiting hospice to set up everything at home for discharge tomorrow
--- NOTE | 2020-09-07 14:13 | PN ---
PROGRESS NOTE DATE OF SERVICE: 09/07/2020 REASON FOR FOLLOWUP: Pneumonia. INTERVAL HISTORY: The patient is afebrile. Still complaining of shortness of breath or cough has decreased in intensity. No chest pain. No nausea, vomiting, abdominal pain or diarrhea. PHYSICAL EXAMINATION: Blood pressure is 100/72 with a pulse of 114, temp 97.5. He is 90% on continue high- flow oxygen. GENERAL DESCRIPTION: Is a middle-aged male, lying in bed, in no distress. RESPIRATORY SYSTEM: Unlabored breathing with coarse breath sounds. No wheeze. HEART: S1, S2. Regular rate. ABDOMEN: Soft, nontender. LABS: No new labs have been obtained today. DIAGNOSTIC IMPRESSION AND PLAN: Patient admitted to the hospital with shortness of breath and cough, Concern for left lower lobe pneumonia. Initial concern for possible nosocomial. Culture has been negative. Patient is currently on Levaquin, to continue along with bronchodilator and respiratory support and monitor clinical course closely. MMODL / IJN: [id number] / MTDD
[2020-09-07] MEDS: LEVOFLOXACIN 750 MG TAB PO SCH (17:50)
[2020-09-07] MEDS: polyethylene glycoL 3350 17 GM POWD.PACK PO SCH (20:54)
[2020-09-08] MEDS: BENZONATATE 100 MG CAP PO PRN (00:30)
[2020-09-08] MEDS: guaiFENesin-DM 100-10MG/5ML 10 ML CUP PO PRN (00:30)
[2020-09-08] MEDS ORDERED: SCOPOLAMINE 1.5MG/72HR PATCH TRANSDERM STA (02:48)
[2020-09-08] MEDS: RIVAROXABAN 15 MG TAB PO SCH (07:55)
[2020-09-08] MEDS: Riluzole [Rilutek] PO SCH (07:55)
[2020-09-08] MEDS: METOPROLOL TARTRATE 25 MG TAB PO SCH (07:55)
[2020-09-08] MEDS: predniSONE 20 MG TAB PO SCH (07:55)
[2020-09-08 08:05] VITALS: BP 125/84; RESP 20; TEMP 97.4
[2020-09-08] MEDS: BUDESONIDE 1 MG/2 ML NEBU INHALATION SCH (09:00)
[2020-09-08] MEDS: IPRATROPIUM-ALBUTEROL 3 ML NEB INHALATION PRN (09:00)
[2020-09-08] MEDS: FORMOTEROL FUMARATE 20 MCG/2 ML NEBU INHALATION SCH (09:00)
[2020-09-08 09:22] VITALS: PULSE 112
--- NOTE | 2020-09-08 16:19 | P.DS ---
Providers Date of admission: 08/29/20 13:22 Expected date of discharge: 09/08/20 Attending physician: Lashae Conroy DO Consults: 08/29/20 13:22 Consult Physician Routine Consulting Provider: Kevin Bravo Consult Reason/Comments: Pneumonia, ALS Do you want consulting provider notified?: Yes 08/30/20 11:43 Consult Physician Routine Consulting Provider: Savana Vizcaino Consult Reason/Comments: Sepsis, PNA Do you want consulting provider notified?: Yes Primary care physician: Rachelle Mars MD Hospital Course: This is a very unfortunate 55-year-old male with past medical history significant for underlying ALS, recent diagnosis of pulmonary emboli on anticoagulation with Eliquis who presented to the hospital with worsening shortness of breath. He should was admitted to the hospital and a prolonged course where he was treated with broad-spectrum antibiotic for possible underlying pneumonia. Patient finish 7 days course of vancomycin and cefepime in the hospital. He was seen and evaluated by infectious disease and pulmonary. So overall condition was not improving as patient was having difficulty clearing secretions and possible mucus plugging worsening his overall condition. He was not a candidate for bronchoscopy. Patient and his elected to pursue comfort measures and he will be discharged home with hospice at home. He was seen and evaluated by me at the day of discharge. He is awake and alert. He appears comfortable. All of the equipment was delivered by hospice to his house. Patient Condition at Discharge: Poor Plan - Discharge Summary Discharge Rx Participant: No New Discharge Prescriptions: New Metoprolol Tartrate [Lopressor] 25 mg PO BID 30 Days #60 tab Continue Albuterol Sulfate [Proair Hfa] 2 puff INHALATION RT-Q4H PRN PRN Reason: Shortness Of Breath Baclofen 10 mg PO 5XD PRN PRN Reason: stiffness guaiFENesin [Mucinex] 600 mg PO Q12HR PRN PRN Reason: COUGH/ CONGESTION Ipratropium-Albuterol Nebulize [Duoneb 0.5 mg-3 mg/3 ml Soln] 3 ml INHALATION RT-QID 30 Days #1 box Riluzole [Rilutek] 50 mg PO BID Budesonide/Formoterol Fumarate [Symbicort 80-4.5 Mcg Inhaler] 2 puff INHALATION RT-BID polyethylene glycoL 3350 [Miralax] 17 gm PO HS #30 powd.pack Rivaroxaban [Xarelto Starter Pack] See Taper PO DIRECTED Discontinued Cefdinir [Omnicef] 300 mg PO Q12H Discharge Medication List Albuterol Sulfate [Proair Hfa] 2 puff INHALATION RT-Q4H PRN 07/28/15 [History] Baclofen 10 mg PO 5XD PRN 03/10/20 [History] Budesonide/Formoterol Fumarate [Symbicort 80-4.5 Mcg Inhaler] 2 puff INHALATION RT-BID 08/22/20 [History] Riluzole [Rilutek] 50 mg PO BID 08/22/20 [History] guaiFENesin [Mucinex] 600 mg PO Q12HR PRN 08/22/20 [History] polyethylene glycoL 3350 [Miralax] 17 gm PO HS #30 powd.pack 08/24/20 [Rx] Ipratropium-Albuterol Nebulize [Duoneb 0.5 mg-3 mg/3 ml Soln] 3 ml INHALATION RT-QID 30 Days #1 box 08/25/20 [Rx] Rivaroxaban [Xarelto Starter Pack] See Taper PO DIRECTED 08/29/20 [History] Metoprolol Tartrate [Lopressor] 25 mg PO BID 30 Days #60 tab 09/08/20 [Rx] Follow up Appointment(s)/Referral(s): [facility], [NON-STAFF] - As Needed Rachelle Mars MD [Primary Care Provider] - 1-2 days (please call office to make appointment on discharge) Patient Instructions/Handouts: Hospice (DC), Community Acquired Pneumonia (DC) Activity/Diet/Wound Care/Special Instructions: Please call [facility] for in home assistance: #[phone] Discharge/Stand Alone Forms: Who Do I Call?, Help In The Home Discharge Disposition: HOME WITH HOSPICE
--- NOTE | 2020-09-09 12:42 | P.PN ---
Progress Note - Text Progress Note Date: 09/08/20 REASON FOR FOLLOWUP: Pneumonia. INTERVAL HISTORY: The patient is afebrile. the pt iscomplaining of shortness of breath or cough has decreased in intensity. No chest pain. No nausea, vomiting, abdominal pain or diarrhea. PHYSICAL EXAMINATION: Blood pressure is 105/70 with a pulse of 114, temp 97.5. He is 90% on continue high- flow oxygen. GENERAL DESCRIPTION: Is a middle-aged male, lying in bed, in no distress. RESPIRATORY SYSTEM: Unlabored breathing with coarse breath sounds. No wheeze. HEART: S1, S2. Regular rate. ABDOMEN: Soft, nontender. LABS: No new labs have been obtained today. DIAGNOSTIC IMPRESSION AND PLAN: Patient admitted to the hospital with shortness of breath and cough, Concern for left lower lobe pneumonia. Initial concern for possible nosocomial. Culture has been negative. Patient is currently on Levaquin, plan is for possible hospice which maybe appropriate for him , levaquin can be discontinued
== END 2020-09-08 12:21 | disposition hospice, home (50) | DRG 871 ==
LOC: EC 11:21 → 4SSUR 13:22
PROVIDERS: ADMIT Internal Medicine; ATTEND Internal Medicine
PROC: 5A0955A Assistance with Respiratory Ventilation, Greater than 96 Consecutive Hours, High Flow/Velocity Cannula (ICD-10-PCS; principal; 2020-09-01)
DX: A41.50 Gram-negative sepsis, unspecified (principal); J18.9 Pneumonia, unspecified organism; J96.01 Acute respiratory failure with hypoxia; G12.21 Amyotrophic lateral sclerosis; J98.11 Atelectasis; T17.590A Other foreign object in bronchus causing asphyxiation, initial encounter; Z87.01 Personal history of pneumonia (recurrent); Z86.711 Personal history of pulmonary embolism; Z79.51 Long term (current) use of inhaled steroids; Z99.3 Dependence on wheelchair; E86.0 Dehydration; Z66 Do not resuscitate; R00.0 Tachycardia, unspecified; Z51.5 Encounter for palliative care; J45.909 Unspecified asthma, uncomplicated; Z74.01 Bed confinement status; Z79.01 Long term (current) use of anticoagulants; Z79.899 Other long term (current) drug therapy; Z80.0 Family history of malignant neoplasm of digestive organs; Z80.8 Family history of malignant neoplasm of other organs or systems
CPT/HCPCS: 36415; 71045; 71046; 80048; 80053; 80202; 82565; 83605; 83735; 84100; 84145; 85025; 85027; 87040; 87070; 87205; 93005; 94640; 94660; 94664; 94667; 94668; 94760; 99285